=== PATIENT | male | born 1955 | race Caucasian/White ===

== ENCOUNTER 2016-07-21 14:30 | Inpatient (IN) | payer SELFPAY ==
[2016-07-21 15:44] LABS: Hematocrit 43.9 % (42.0-52.0); Hemoglobin 15.4 gm/dL (13.5-18.0); Mean Cell Volume 93.6 fl (78-100); Mean Corpuscular Hemoglobin 32.8 pg (27-31); Mean Corpuscular Hgb Conc 35.1 g/dl (32-36); Mean Platelet Volume 11.7 fl (6.0-9.5); Neutrophil # 11.6 K/mm3 (1.3-6.0); Neutrophil % 82.6 % (42-75.0); Platelet Count 228 K/mm3 (150-450); Red Blood Count 4.69 M/mm3 (4.7-6.0); Red Cell Distribution Width 13.2 % (11.5-14.0)
--- NOTE | 2016-07-21 15:46 | ERNOTE ---
Lower Extremity HPI - General Time Seen by Provider: 07/21/16 14:45 Source: patient Exam Limitations: no limitations - Immun/Allergies/Home Medications Immunizations: IMMUNIZATION HX Immunizations Up to Date No History of Influenza Vaccine No Hx Pneumococcal Vaccination No Allergies/Adverse Reactions: Allergies Allergy/AdvReac Type Severity Reaction Status Date / Time No Known Allergies Allergy Verified 07/21/16 15:04 Home Medications: HOME MEDICATIONS Gabapentin 300 mg PO BID 07/21/16 [Last Taken Unknown] metFORMIN HCL [Metformin HCl ER] 500 mg PO 07/21/16 [Last Taken Unknown] - History of Present Illness Narrative: Patient's symptoms began three months ago when he pulled off a scab from the bottom of his left foot. Pt states that while he has never formally been diagnosed with diabetes, he has been checking his blood sugar and he believes he has diabetes. He since has actively pulled off the scabs on the bottom of his left foot and now the left foot is warm to the touch it hurts it's swollen and there is a sore on the plantar aspect and there is a foul smelling discharge from it. He denies any fevers or chills. He has not taken any medication for this. CT does not have a primary care doctor. He since states that he has not seek any medical attention for this however has pulled off the scabs himself. Occurred: other - 3 months ago Review of Systems - Review of Systems Constitutional: Present: no symptoms reported EYE: Present: no symptoms reported ENT: Present: no symptoms reported Respiratory: Present: no symptoms reported Cardiology: Present: no symptoms reported Gastrointestinal/Abdominal: Present: no symptoms reported Genitourinary: Present: no symptoms reported Musculoskeletal: Present: See HPI - Patient's Past Medical History Patient History - Medical: No pertinent hx Patient History - Cardiac/Respiratory: No pertinent hx Patient History - Cancer: No Hx of Cancer Patient History - Surgical Procedures: No surgical history Patient History - Other: None - Social History Living Situations: spouse Abuse History: No History of abuse Psych History: No pertinent hx Alcohol Use: none Drug Use: none - Immunizations Immunizations Up to Date: No Hx Pneumococcal Vaccination: No History of Influenza Vaccine: No Physical Exam - Physical Exam General Appearance: Present: wd/wn, alert, no apparent distress Ears, Nose, Throat: Present: normal ENT inspection Respiratory: Present: no respiratory distress, normal breath sounds, no accessory muscle use, chest nontender, lungs clear Cardiovascular/Chest: Present: regular rate, rhythm, no murmur, normal peripheral pulses Extremity Exam: Present: other - patient has a 2 cm x 2 cm crater on the plantar aspect of his left forefoot. There appears to be some purulent material in the crater. There is some surrounding redness and inflammation extending all the way up to the dorsal aspect of the midfoot region the area is hot and tender. Any movement causes pain but the patient does have a good dorsalis pedis pulse. Neurological Exam: Present: alert, oriented, normal mood/affect, no motor/ sensory deficits ED Progress - Results and Orders Patient's Lab Results:: I have reviewed the patient's lab results. - Vital Signs Patient's Vital Signs:: I have reviewed the patient's vital signs. Vital Signs: Vital Signs 07/21/16 14:59 Temperature 37.2 C Pulse Rate 98 Respiratory 14 Rate Blood Pressure 128/66 O2 Sat by Pulse 94 Oximetry - Progress/Reassessment Chief Complaint: Foot Injury/Pain Plan - Plan Plan: This patient has diabetes for which he has not received any care whatsoever. He also has a left diabetic foot ulcer. Doctor Chinmay, Our welfare centre manager was kind enough to come to the patient's bedside and do an evaluation, it is both our opinions that the patient needs to be admitted to [facility] service. Subsequently Dr. Deshawn Bland was consulted to admit the patient. Patient's white count is 14 his sedimentation rate is 91 his CRP is 19.7 ER he received IV hydration he received Rocephin 2 g IV and he received pain medication as well. [facility]. Departure Clinical Impression: Diabetic foot ulcer Qualifiers: Diabetic foot ulcer location: unspecified part of foot Diabetes mellitus type: other specified (including BOB) Laterality: left Non-pressure ulcer stage: unspecified non-pressure ulcer stage Qualified Code(s): E13.621 - Other specified diabetes mellitus with foot ulcer; L97.529 - Non-pressure chronic ulcer of other part of left foot with unspecified severity - Departure Disposition: [facility] Condition: Serious
[2016-07-21 15:55] LABS: Albumin * 3.3 gm/dl (3.4-5.0); Anion Gap 12.4 mmol/L (6.8-13.8); BUN/Creatinine Ratio 22.8 (9.0-21.6); Bilirubin, Total 0.5 mg/dL (0.0-1.1); Ca. Corrected For Albumin 10.1 mg/dL (8.4-10.2); Calcium * 9.9 mg/dL (7.9-10.9); Carbon Dioxide 29.9 mmol/L (24-32.6); Potassium 4.3 mmol/L (3.4-4.6); Total Protein 8.2 gm/dL (6.2-8.2)
[2016-07-21 15:58] LABS: Hemoglobin A1C 7.2 % (4.00-6.0)
[2016-07-21 16:04] LABS: CRP 19.7 mg/dL (0.0-0.9)
[2016-07-21] MEDS ORDERED: HYDROmorphone HCL 1 MG/ML DISP.SYRIN IV ONE (16:59)
[2016-07-21] MEDS ORDERED: NORMAL SALINE 1,000 ML IV ONE (17:00)
[2016-07-21] MEDS ORDERED: HYDROmorphone HCL 1 MG/ML DISP.SYRIN ONE (17:08)
[2016-07-21] MEDS: CIPROFLOXACIN LACTATE/D5W 400 MG/200 ML BAG IV SCH (17:33)
[2016-07-21] MEDS: ENOXAPARIN SODIUM 40 MG/0.4 ML SYRG SC SCH (18:06)
--- NOTE | 2016-07-21 19:36 | HP ---
Chief Complaint - Chief Complaint Date of Service: 07/21/16 Time of Service: 19:31 Chief Complaint: Foot Ulcer History of Present Illness: This is a 61 year old man whose symptoms began three months ago when he pulled off a scab from the bottom of his left foot. He said that while he has never formally been diagnosed with diabetes, he has been checking his blood sugar and he believes he has diabetes. Now his left foot is warm to the touch, tender, swollen, there is a sore and there is a foul smelling discharge from it. He denies any fevers or chills. He has not taken any medication for this. He does not have a primary care doctor. He has not sought any medical attention for the problem until now. - Patient's Past Medical History Patient History - Medical: No pertinent hx Patient History - Cardiac/Respiratory: No pertinent hx Patient History - Cancer: No Hx of Cancer Patient History - Surgical Procedures: No surgical history Patient History - Other: None - Family History Mother Family History - Medical: No pertinent hx Family History - Cardiac/Respiratory: No pertinent hx Family History - Cancer: No pertinent family hx Father Family History - Medical: No pertinent hx Family History - Cardiac/Respiratory: No pertinent hx Family History - Cancer: No pertinent family hx - Social History Living Situations: spouse Abuse History: No History of abuse Psych History: No pertinent hx Smoking Status: Current every day smoker Have you smoked in the past 12 months: Yes Do you dip or chew tobacco: No Patient requests Smoking Cessation Consult: Yes Initiate information on Smoking Cessation: Yes Alcohol Use: none Drug Use: none - Immunizations Immunizations Up to Date: No Hx Pneumococcal Vaccination: No History of Influenza Vaccine: No Review Of Systems (GEN) - Review of Systems Generalized/Overall Review: Present: No Symptoms Reported EENTM: Present: No Symptoms Reported Respiratory: Present: No Symptoms Reported Cardiac: Present: No Symptoms Reported Abdominal: Present: No Symptoms Reported Genitourinary: Present: No Symptoms Reported Musculoskeletal: Present: No Symptoms Reported Neurological: Present: No Symptoms Reported Skin: Present: Other - see HPI Endocrine: Present: No Symptoms Reported Misc: All systems neg except as marked Immunizations: IMMUNIZATION HX Immunizations Up to Date No History of Influenza Vaccine No Hx Pneumococcal Vaccination No Allergies/Adverse Reactions: Allergies Allergy/AdvReac Type Severity Reaction Status Date / Time No Known Allergies Allergy Verified 07/21/16 15:04 Home Medications: HOME MEDICATIONS Gabapentin 300 mg PO BID 07/21/16 [Last Taken Unknown] metFORMIN HCL [Metformin HCl ER] 500 mg PO 07/21/16 [Last Taken Unknown] Exam - Exam Vital Signs: Vital Signs - Last Taken Selected Entries 07/21/16 18:07 Temperature 37.0 C Temperature Oral Source Pulse Rate 96 Respiratory 16 Rate Blood Pressure 164/89 O2 Sat by Pulse 94 Oximetry Oxygen Delivery Room Air Method Constitutional: Present: Alert, Oriented x3, Cooperative, Well developed, Well nourished, No distress Eye Exam: bilateral eye: normal inspection, PERRL, EOMI Neck: Present: non-tender, full range of motion, supple, normal inspection, trachea midline Back Exam: Present: normal inspection, no CVA tenderness, no vertebral tenderness Respiratory: Present: normal breath sounds, no respiratory distress Cardiovascular/Chest: Present: normal peripheral pulses, regular rate, rhythm, no chest tenderness, no edema, no gallop, no JVD, no murmur Abdomen: Present: Normal bowel sounds, soft, nontender, nondistended, no rebound tenderness, no hepatospenomegaly, no masses Extremity: Present: no pedal edema, other - 2X2 cm ulcer with surrounding redness bottom of left foot. Skin Exam: Present: normal color, warm/dry, no cyanosis Neurologic: Present: alert, oriented x 3 Appearance: Present: appropriate appearance, appropriate insight, neat Eye contact: Present: cooperative, good eye contact, normal speech Thoughts: Present: normal thought pattern Diagnostic Studies: Laboratory Results WBC 14.0 K/mm3 (4.0-10.5) H 07/21/16 15:27 RBC 4.69 M/mm3 (4.7-6.0) L 07/21/16 15:27 Hgb 15.4 gm/dL (13.5-18.0) 07/21/16 15:27 Hct 43.9 % (42.0-52.0) 07/21/16 15:27 MCV 93.6 fl (78-100) 07/21/16 15:27 MCH 32.8 pg (27-31) H 07/21/16 15:27 MCHC 35.1 g/dl (32-36) 07/21/16 15:27 RDW 13.2 % (11.5-14.0) 07/21/16 15:27 Plt Count 228 K/mm3 (150-450) 07/21/16 15:27 MPV 11.7 fl (6.0-9.5) H 07/21/16 15:27 Immature Gran % (Auto) 0.70 % (0.001-0.429) H 07/21/16 15:27 Immature Gran # (Auto) 0.10 K/mm3 (0.000-0.0310) H 07/21/16 15:27 Neutrophils % 82.6 % (42-75.0) H 07/21/16 15:27 Lymphocytes % 8.6 % (20-51) L 07/21/16 15:27 Monocytes % 7.2 % (0.0-9) 07/21/16 15: Eosinophils % 0.7 % (0.0-3.0) 07/21/16 15: Basophils % 0.2 % (0.0-1.0) 07/21/16 15: Nucleated RBC % 0.0 k/mm3 (0-1) 07/21/16 15:27 Neutrophils # 11.6 K/mm3 (1.3-6.0) H 07/21/16 15:27 Lymphocytes # 1.2 k/mm3 (1.5-3.5) L 07/21/16 15:27 Monocytes # 1.0 k/mm3 (0.0-1.0) 07/21/16 15:27 Eosinophils # 0.1 k/mm3 (0.0-0.7) 07/21/16 15: Absolute Basophils 0.0 k/mm3 (0.0-0.1) 07/21/16 15:27 ESR 91 mm/hr (0-10) H 07/21/16 15:27 Sodium 139 mmol/L (132-142) 07/21/16 15:27 Plasma Sodium 141 mmol/L (130-142) 07/21/16 15:27 Potassium 4.3 mmol/L (3.4-4.6) 07/21/16 15:27 Chloride 101 mmol/L (97-106) 07/21/16 15:27 Carbon Dioxide 29.9 mmol/L (24-32.6) 07/21/16 15:27 Anion Gap 12.4 mmol/L (6.8-13.8) 07/21/16 15:27 BUN 21 mg/dL (6-23) 07/21/16 15:27 Creatinine 0.92 mg/dL (0.4-1.4) 07/21/16 15:27 Est GFR (Non-Af Amer) 89 mL/min (60-130) 07/21/16 15:27 BUN/Creatinine Ratio 22.8 (9.0-21.6) H 07/21/16 15:27 Random Glucose 217 mg/dL (70-110) H 07/21/16 15:27 Mean Blood Glucose 154 mg/dL 07/21/16 15:27 Hemoglobin A1c 7.2 % (4.00-6.0) H 07/21/16 15:27 Calcium 9.9 mg/dL (7.9-10.9) 07/21/16 15:27 Calcium Adj for Albumin 10.1 mg/dL (8.4-10.2) 07/21/16 15:27 Total Bilirubin 0.5 mg/dL (0.0-1.1) 07/21/16 15:27 AST 10 U/L (0-48) 07/21/16 15:27 ALT 19 U/L (19-67) 07/21/16 15:27 Alkaline Phosphatase 96 U/L (50-170) 07/21/16 15:27 C-Reactive Prot, Quant 19.7 mg/dL (0.0-0.9) H 07/21/16 15:27 Total Protein 8.2 gm/dL (6.2-8.2) 07/21/16 15:27 Albumin 3.3 gm/dl (3.4-5.0) L 07/21/16 15:27 Assessment/Plan - Narrative Narrative: antibiotics. podiatry consult. - Assessment/Plan (1) Diabetes type 2, uncontrolled Problem: Chronic (2) Diabetic foot ulcer Problem: Acute Qualifiers: Diabetic foot ulcer location: unspecified part of foot Diabetes mellitus type: other specified (including BOB) Laterality: left Non-pressure ulcer stage: unspecified non-pressure ulcer stage Qualified Code(s): E13.621 - Other specified diabetes mellitus with foot ulcer; L97.529 - Non-pressure chronic ulcer of other part of left foot with unspecified severity
[2016-07-21] MEDS: NICOTINE 21 MG PATC TD SCH ×2 (21:13→21:16)
[2016-07-21] MEDS ORDERED: METOCLOPRAMIDE HCL 5 MG/ML VIAL IV PRN (22:08)
[2016-07-21] MEDS ORDERED: diphenhydrAMINE HCL 50 MG/ML VIAL IV PRN (22:08)
[2016-07-21] MEDS: NORMAL SALINE 1,000 ML IV PRN (23:36)
[2016-07-22] MEDS: CIPROFLOXACIN LACTATE/D5W 400 MG/200 ML BAG IV SCH ×2 (05:35→16:46)
[2016-07-22] MEDS: NICOTINE 21 MG PATC TD SCH (06:45)
[2016-07-22] MEDS ORDERED: COLLAGENASE CLOSTRIDIUM HIST. 30 APPL TUBE TP SCH (09:00)
--- NOTE | 2016-07-22 09:32 | PN ---
Subjective - Date and Time Seen Date: 07/22/16 Time: 06:30 Subjective Narrative: Foot pain controlled. Headache gone. Dr. Moy saw him in the ER. Culture pending. Objective - Review of Systems Generalized/Overall Review: Reports: No Symptoms Reported EENTM: Reports: No Symptoms Reported Respiratory: Reports: No Symptoms Reported Cardiac: Reports: No Symptoms Reported Abdominal: Reports: No Symptoms Reported Genitourinary Symptoms: Reports: No Symptoms Reported Musculoskeletal Complaints: Reports: No Symptoms Reported Neurological: Reports: No Symptoms Reported Skin: Reports: Other - foot pain Endocrine: Reports: No Symptoms Reported Misc: All systems neg except as marked - Vitals Vitals: Last Vital Signs Selected Entries 07/22/16 06:46 Temperature 36.4 C L Temperature Temporal Artery Source Scan Pulse Rate 75 Respiratory 18 Rate Blood Pressure 143/85 Blood Pressure Supine Position O2 Sat by Pulse 96 Oximetry Oxygen Delivery Room Air Method - Exam Constitutional: Present: Alert, Oriented x3, Cooperative, Well developed, Well nourished, No distress ENT Exam: Present: normal ENT inspection, hearing grossly normal, pharynx normal Neck: Present: supple Respiratory: Present: lungs clear, no respiratory distress Abdomen: Present: Normal bowel sounds, soft, nontender, nondistended, no rebound tenderness, no hepatospenomegaly, no masses Extremity: Present: non-tender, no pedal edema, other - ulcer same Neurologic: Present: alert, oriented x 3 Appearance: Present: appropriate appearance, neat, no memory impairment Eye contact: Present: cooperative, good eye contact, normal speech Thoughts: Present: normal thought pattern, no apparent hallucination, auditory hallucinations Assessment/Plan - Problems/Diagnosis (1) Diabetes type 2, uncontrolled Problem: Chronic Narrative: Antibiotics. Podiatry consult. (2) Diabetic foot ulcer Problem: Acute Qualifiers: Diabetic foot ulcer location: unspecified part of foot Diabetes mellitus type: other specified (including BOB) Laterality: left Non-pressure ulcer stage: unspecified non-pressure ulcer stage Qualified Code(s): E13.621 - Other specified diabetes mellitus with foot ulcer; L97.529 - Non-pressure chronic ulcer of other part of left foot with unspecified severity
[2016-07-22] MEDS: metFORMIN HCL 500 MG TABLET PO SCH ×2 (09:34→16:46)
--- NOTE | 2016-07-22 10:08 | CONS ---
- Reason for consultation (1) Cellulitis of foot Date of Service: 07/21/16 (2) Diabetic foot ulcer Date of Service: 07/21/16 HPI - General Date of Service: 07/21/16 Narrative: Pt evaluated in the ED at request of ERP. Presents today with ulceration of 3 months duration to the plantar surface of the left foot foot. States that it began as a callus that he "picked off." It eventually scabbed over and he again "picked it off." This has been an ongoing cycle for the past 3 months, however this last time, it has not scabbed over. Instead he has developed significant redness, swelling, and tenderness. States that he has been soaking his foot for a few minutes daily in peroxide to clean. Is only applying a sock to cover, and only when he is in his shoes walking, otherwise it is open to air. Does state that he went mushroom hunting recently and stepped on a [place] plant and believes this may be contributing to his symptoms. I was consulted for a surgical evaluation. Source: patient Exam Limitations: no limitations - History of Present Illness Timing/Duration: getting worse Allergies/Adverse Reactions: Allergies No Known Allergies Allergy (Verified 07/21/16 15:04) Home Medications: Home Medications Medication Instructions Recorded Last Taken Gabapentin 300 mg PO BID 07/21/16 Unknown metFORMIN HCL [Metformin HCl ER] 500 mg PO DAILY 07/21/16 Unknown - Patient's Past Medical History Patient History - Medical: Diabetes Type 2 Patient History - Cardiac/Respiratory: No pertinent hx Patient History - Cancer: No Hx of Cancer Patient History - Surgical Procedures: No surgical history Patient History - Other: None - Family History Mother Family History - Medical: No pertinent hx Family History - Cardiac/Respiratory: No pertinent hx Family History - Cancer: No pertinent family hx Father Family History - Medical: No pertinent hx Family History - Cardiac/Respiratory: No pertinent hx Family History - Cancer: No pertinent family hx - Social History Living Situations: spouse Abuse History: No History of abuse Psych History: No pertinent hx Smoking Status: Current every day smoker Have you smoked in the past 12 months: Yes Do you dip or chew tobacco: No Patient requests Smoking Cessation Consult: Yes Initiate information on Smoking Cessation: Yes Alcohol Use: none Drug Use: none - Immunizations Immunizations Up to Date: No Hx Pneumococcal Vaccination: No History of Influenza Vaccine: No Date of Service: 07/21/16 Verbal consent obtained from the pt for bedside debridement of ulceration to his left foot. Ulceration debrided to subcutaneous tissue with #15 blade, excising all hyperkeratotic/devitalized tissue from the periphery of the ulceration revealing healthy, bleeding subcutaneous wound margins. Surface of ulceration also debrided with #15 blade, removing significant amount of devitalized/fibrotic tissue from the base of the ulcer revealing a healthy bleeding subcutaneous wound bed. Hemostasis with compression. Pt tolerated well without complication. Medications - Medications Current Medications: Current Medications Collagenase (Santyl) 1 appl TP BID [facility] Stop: 08/21/16 09:01 Last Admin: 07/22/16 09:34 Dose: 1 appl Enoxaparin Sodium (Lovenox) 40 mg SC Q24H [facility] Stop: 08/20/16 17:31 Last Admin: 07/21/16 18:06 Dose: 40 mg Ciprofloxacin/Dextrose (Cipro) 400 mg in 200 mls @ 200 mls/hr IV Q12H [facility] PRN Reason: Protocol Stop: 08/20/16 17:16 Last Infusion: 07/22/16 06:35 Dose: Infused Sodium Chloride (Sodium Chloride 0.9%) 1,000 mls @ 70 mls/hr IV .[id number] PRN PRN Reason: HYDRATION Stop: 08/20/16 22:09 Last Admin: 07/21/16 23:36 Dose: 70 mls/hr Metformin HCl (Glucophage) 500 mg PO BIDWM [facility] Stop: 08/21/16 09:01 Last Admin: 07/22/16 09:34 Dose: 500 mg Nicotine (Nicoderm) 21 mg TD Q24H [facility] Stop: 08/21/16 07:01 Last Admin: 07/22/16 06:45 Dose: 21 mg Review of Systems - Review of Systems Generalized/Overall Review: Present: Fatigue Musculoskeletal: Present: Other - Left foot pain Neurological: Present: Numbness Skin: Present: Other - Ulceration left foot, redness left foot Physical Examination - Exam Vital Signs: Vital Signs - Last Taken Temp 36.4 C L 07/22/16 09:00 Pulse 75 07/22/16 09:00 Resp 18 07/22/16 09:00 BP 143/85 07/22/16 09:00 Pulse Ox 96 07/22/16 09:00 O2 Oxygen Delivery Method Room Air Constitutional: Present: Alert, Oriented x3, Cooperative Peripheral Pulses: dorsalis-pedis (L): 2+ Extremity: Present: pedal edema Skin Exam: Present: other - Ulceration to plantar aspect 3rd metatarsal head area left foot measuring 1.7 x 2 x 1.2 cm. No tunneling or undermining. Loss of tissue to full thickness with exposure of subcutaneous fat layer. Base with mix of granulation and fibrotic tissue. Surrounding tissue hyperkeratotic with erythema extening into the 3rd toe as well as into the dorsum of the foot. Slight tenderness to touch to dorsum of foot, no pain at ulceration site. Minimal sero-purulent drainage, slight malodor. No exposed tendon or bone at this time. Neurologic: Present: sensory deficit Appearance: Present: appropriate appearance - Results and Findings: Lab/Microbiology results last 24 hrs: Culture 07/21/16 20:00 Wound Culture - Preliminary Foot - Left Ruling Out Pathogen - Assessments/Findings (1) Cellulitis of foot Diagnosis(s): IV ABX. Recommend admit to hospital for further ABX therapy. Problem: Acute (2) Diabetic foot ulcer Diagnosis(s): Ulceration debrided at bedside. Dressed with dry gauze, sharmila, and tape. Will begin daily dressing changes with Aquacel Ag, dry gauze, sharmila, and tape. Foot to be washed with soap and water at dressing changes. Culture obtained in ED. Will await final results. Discussed with pt potential of going to OR for possible I&D vs possible amputation (partial or total) pending MRI results. Will discuss further when results available. Pt states understanding. Problem: Acute Qualifiers: Diabetic foot ulcer location: other Diabetes mellitus type: type 2 Laterality: left Non-pressure ulcer stage: with fat layer exposed Qualified Code(s): E11.621 - Type 2 diabetes mellitus with foot ulcer; L97.522 - Non- pressure chronic ulcer of other part of left foot with fat layer exposed
[2016-07-22] MEDS: ACETAMINOPHEN 325 MG TABLET PO PRN (13:10)
[2016-07-22] MEDS: KETOROLAC TROMETHAMINE 30 MG/ML VIAL IV PRN (15:19)
[2016-07-22] MEDS: NORMAL SALINE 1,000 ML IV PRN (15:37)
[2016-07-22] MEDS: ENOXAPARIN SODIUM 40 MG/0.4 ML SYRG SC SCH (16:46)
[2016-07-22] MEDS: MEROPENEM 1 GM in NORMAL SALINE 100 ML IV SCH (18:27)
[2016-07-22] MEDS: VANCOMYCIN HCL 1.5 GM in DEXTROSE 5 % IN WATER 500 ML IV SCH ×2 (19:12)
[2016-07-22] MEDS: INSULIN LISPRO 100 UNITS/ML VIAL SC SCH (21:08)
[2016-07-23] MEDS: MEROPENEM 1 GM in NORMAL SALINE 100 ML IV SCH ×3 (01:45→17:34)
[2016-07-23] MEDS: KETOROLAC TROMETHAMINE 30 MG/ML VIAL IV PRN ×2 (06:01→16:33)
[2016-07-23] MEDS: ACETAMINOPHEN 325 MG TABLET PO PRN ×2 (06:01→11:55)
[2016-07-23] MEDS: INSULIN LISPRO 100 UNITS/ML VIAL SC SCH ×4 (06:57→20:14)
[2016-07-23] MEDS: VANCOMYCIN HCL 1.5 GM in DEXTROSE 5 % IN WATER 500 ML IV SCH ×2 (06:58)
[2016-07-23] MEDS: NICOTINE 21 MG PATC TD SCH (06:59)
[2016-07-23] MEDS: metFORMIN HCL 500 MG TABLET PO SCH ×2 (09:18→16:33)
[2016-07-23] MEDS: NORMAL SALINE 1,000 ML IV PRN (15:06)
[2016-07-23] MEDS: ENOXAPARIN SODIUM 40 MG/0.4 ML SYRG SC SCH (16:33)
[2016-07-23] MEDS: VANCOMYCIN HCL 1.75 GM in DEXTROSE 5 % IN WATER 500 ML IV SCH ×2 (18:36)
--- NOTE | 2016-07-23 19:25 | PN ---
Subjective - Date and Time Seen Date: 07/23/16 Time: 07:20 Subjective Narrative: Foot pain controlled. Headache gone. Dr. Moy saw him in the ER. Dr. Moy to see him again today. Culture pending. Objective - Review of Systems Generalized/Overall Review: Reports: No Symptoms Reported EENTM: Reports: No Symptoms Reported Respiratory: Reports: No Symptoms Reported Cardiac: Reports: No Symptoms Reported Abdominal: Reports: No Symptoms Reported Genitourinary Symptoms: Reports: No Symptoms Reported Musculoskeletal Complaints: Reports: Other - minimal foot pain Neurological: Reports: No Symptoms Reported Skin: Reports: No Symptoms Reported Endocrine: Reports: No Symptoms Reported Misc: All systems neg except as marked - Vitals Vitals: Last Vital Signs Selected Entries 07/22/16 23:00 Temperature 37.3 C Temperature Oral Source Pulse Rate 91 Respiratory 20 Rate Blood Pressure 179/98 Blood Pressure Supine Position O2 Sat by Pulse 94 Oximetry Oxygen Delivery Room Air Method - Exam Constitutional: Present: Alert, Oriented x3, Cooperative, Well developed, Well nourished, No distress ENT Exam: Present: normal ENT inspection, hearing grossly normal Neck: Present: normal inspection Respiratory: Present: lungs clear, no respiratory distress Cardiovascular/Chest: Present: normal peripheral pulses, regular rate, rhythm, no chest tenderness, no edema Abdomen: Present: Normal bowel sounds, soft, nontender, nondistended, no rebound tenderness Extremity: Present: normal range of motion, no pedal edema, no calf tenderness, other - foot about the same Skin Exam: Present: normal color, warm/dry, no cyanosis Neurologic: Present: alert, oriented x 3 Appearance: Present: appropriate appearance, appropriate insight, neat, no memory impairment Eye contact: Present: cooperative, good eye contact, normal speech Thoughts: Present: normal thought pattern Assessment/Plan Plan Narrative: Wait for final culture. Continue antibiotics. Wait for podiatry local care decision - Problems/Diagnosis (1) Diabetes type 2, uncontrolled Problem: Chronic (2) Diabetic foot ulcer Problem: Acute Qualifiers: Diabetic foot ulcer location: unspecified part of foot Diabetes mellitus type: other specified (including BOB) Laterality: left Non-pressure ulcer stage: unspecified non-pressure ulcer stage Qualified Code(s): E13.621 - Other specified diabetes mellitus with foot ulcer; L97.529 - Non-pressure chronic ulcer of other part of left foot with unspecified severity
[2016-07-24] MEDS: ACETAMINOPHEN 325 MG TABLET PO PRN ×2 (01:41→17:13)
[2016-07-24] MEDS: MEROPENEM 1 GM in NORMAL SALINE 100 ML IV SCH ×3 (01:42→17:17)
[2016-07-24 05:57] LABS: Hematocrit 39.7 % (42.0-52.0); Hemoglobin 13.9 gm/dL (13.5-18.0); Mean Cell Volume 92.8 fl (78-100); Mean Corpuscular Hemoglobin 32.5 pg (27-31); Mean Platelet Volume 11.8 fl (6.0-9.5); Neutrophil # 9.2 K/mm3 (1.3-6.0); Neutrophil % 72.6 % (42-75.0); Platelet Count 234 K/mm3 (150-450); Red Blood Count 4.28 M/mm3 (4.7-6.0); Red Cell Distribution Width 12.7 % (11.5-14.0); White Blood Count 12.7 K/mm3 (4.0-10.5)
[2016-07-24 06:22] LABS: Anion Gap 8.8 mmol/L (6.8-13.8); BUN/Creatinine Ratio 16.3 (9.0-21.6); Calcium * 8.9 mg/dL (7.9-10.9); Carbon Dioxide 29.6 mmol/L (24-32.6); Estimated Creat Clear 103.3; Potassium 3.4 mmol/L (3.4-4.6)
[2016-07-24 06:41] LABS: CRP 19.1 mg/dL (0.0-0.9)
[2016-07-24] MEDS: INSULIN LISPRO 100 UNITS/ML VIAL SC SCH ×4 (07:01→20:57)
[2016-07-24] MEDS: VANCOMYCIN HCL 1.75 GM in DEXTROSE 5 % IN WATER 500 ML IV SCH ×4 (07:01→18:34)
[2016-07-24] MEDS: NICOTINE 21 MG PATC TD SCH (07:02)
[2016-07-24] MEDS: KETOROLAC TROMETHAMINE 30 MG/ML VIAL IV PRN ×2 (07:10→15:32)
--- NOTE | 2016-07-24 08:01 | PN ---
Subjective - Date and Time Seen Date: 07/23/16 Time: 07:45 Subjective Narrative: Pt seen at bedside resting. States that he does not have much of an appetite today and is having intermittent pain in his left foot. Denies any nausea or vomitting. Is interested in MRI results. Objective - Review of Systems Generalized/Overall Review: Reports: Fatigue Musculoskeletal Complaints: Reports: Other - left foot pain Neurological: Reports: Numbness Skin: Reports: Other - Ulceration to plantar aspect 3rd metatarsal head area left foot, redness left foot - Vitals Vitals: Last Vital Signs Temp 37 C 07/24/16 07:45 Pulse 88 07/24/16 07:45 Resp 18 07/24/16 07:45 BP 151/98 07/24/16 07:45 Pulse Ox 96 07/24/16 07:45 - Abnormal Lab Findings Abnormal Lab Findings: Abnormal Lab Results 07/24/16 07/24/16 07/24/16 Range/Units 05:54 05:54 05:54 WBC 12.7 H (4.0-10.5) K/mm3 RBC 4.28 L (4.7-6.0) M/mm3 Hct 39.7 L (42.0-52.0) % MCH 32.5 H (27-31) pg MPV 11.8 H (6.0-9.5) fl Immature Gran % (Auto) 0.60 H (0.001-0.429) % Immature Gran # (Auto) 0.08 H (0.000-0.0310) K/mm3 Lymphocytes % 15.0 L (20-51) % Monocytes % 10.8 H (0.0-9) % Neutrophils # 9.2 H (1.3-6.0) K/mm3 Monocytes # 1.4 H (0.0-1.0) k/mm3 ESR 102 H (0-10) mm/hr Random Glucose 135 H D (70-110) mg/dL C-Reactive Prot, Quant 19.1 H (0.0-0.9) mg/dL - Exam Exam Narrative: MRI left foot with no significant concerns for osteomyelitis. Showing increase signal within the 3rd MtPJ, likely septic arthritis. Constitutional: Present: Alert, Oriented x3, Cooperative, No distress Cardiovascular/Chest: Present: normal peripheral pulses Extremity: Present: pedal edema Skin Exam: Present: other - Ulceration to plantar aspect 3rd metatarsal head area left foot measuring 1.6 x 1.9 x 1 cm. No tunneling or undermining. Loss of tissue to full thickness with exposure of subcutaneous fat layer. Base with mix of granulation and fibrotic tissue. Surrounding tissue with erythema extening into the 3rd toe as well as into the dorsum of the foot, demarcated with marking pen. Slight tenderness to touch to dorsum of foot, no pain at ulceration site. Minimal serosanguinous drainage, slight malodor. No exposed tendon or bone at this time. Neurologic: Present: sensory deficit Assessment/Plan - Problems/Diagnosis (1) Cellulitis of foot Problem: Acute Narrative: Continue IV ABX. Await final culture results. 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 Discussed MRI with pt. Showing likely septic arthritis. Third MtP joint punctured with iris scissors during dressing change, minimal sero-purulent drainage expressed. Pt would like to avoid going to OR if at all possible as he is a self-pay and is trying to keep his expenses to a minimum. Advised that if his foot does not start to show improvement, will need to go to OR for more extensive I&D. States understanding. Will continue IV ABX at this time. Discussed with case maker potential for home IV ABX. Will investigate this option.
[2016-07-24] MEDS: metFORMIN HCL 500 MG TABLET PO SCH ×2 (09:24→17:15)
[2016-07-24] MEDS: NORMAL SALINE 1,000 ML IV PRN (14:00)
--- NOTE | 2016-07-24 16:58 | PN ---
Subjective - Date and Time Seen Date: 07/24/16 Time: 06:20 Subjective Narrative: Foot pain controlled. Headache gone. Two of three organisms identified in the lab. Unfortunately, still waiting on ID for the third. MRI most suggestive of septic arthrtis. Objective - Review of Systems Generalized/Overall Review: Reports: No Symptoms Reported EENTM: Reports: No Symptoms Reported Respiratory: Reports: No Symptoms Reported Cardiac: Reports: No Symptoms Reported Abdominal: Reports: No Symptoms Reported Genitourinary Symptoms: Reports: No Symptoms Reported Musculoskeletal Complaints: Reports: Other - foot pain Neurological: Reports: No Symptoms Reported Skin: Reports: No Symptoms Reported Endocrine: Reports: No Symptoms Reported Misc: All systems neg except as marked - Vitals Vitals: Last Vital Signs Selected Entries 07/23/16 23:00 Temperature 36.6 C Temperature Oral Source Pulse Rate 98 Respiratory 20 Rate Blood Pressure 154/81 Blood Pressure Supine Position O2 Sat by Pulse 91 Oximetry Oxygen Delivery Room Air Method - Abnormal Lab Findings Abnormal Lab Findings: Abnormal Lab Results 07/24/16 07/24/16 07/24/16 Range/Units 05:54 05:54 05:54 WBC 12.7 H (4.0-10.5) K/mm3 RBC 4.28 L (4.7-6.0) M/mm3 Hct 39.7 L (42.0-52.0) % MCH 32.5 H (27-31) pg MPV 11.8 H (6.0-9.5) fl Immature Gran % (Auto) 0.60 H (0.001-0.429) % Immature Gran # (Auto) 0.08 H (0.000-0.0310) K/mm3 Lymphocytes % 15.0 L (20-51) % Monocytes % 10.8 H (0.0-9) % Neutrophils # 9.2 H (1.3-6.0) K/mm3 Monocytes # 1.4 H (0.0-1.0) k/mm3 ESR 102 H (0-10) mm/hr Random Glucose 135 H D (70-110) mg/dL C-Reactive Prot, Quant 19.1 H (0.0-0.9) mg/dL - Exam Constitutional: Present: Alert, Oriented x3, Cooperative, Well developed, Well nourished, No distress ENT Exam: Present: normal ENT inspection, hearing grossly normal, pharynx normal Neck: Present: normal inspection Respiratory: Present: normal breath sounds, no respiratory distress Cardiovascular/Chest: Present: regular rate, rhythm, no chest tenderness Abdomen: Present: Normal bowel sounds, soft, nontender, nondistended, no rebound tenderness, no hepatospenomegaly, no masses Extremity: Present: other - foot about the same Neurologic: Present: alert, oriented x 3 Appearance: Present: appropriate appearance, appropriate insight, neat, no memory impairment Eye contact: Present: cooperative, good eye contact, normal speech Thoughts: Present: normal thought pattern Assessment/Plan Plan Narrative: Continue antibiotics. Await final culture. Local care per Dr. Moy. - Problems/Diagnosis (1) Diabetes type 2, uncontrolled Problem: Chronic (2) Diabetic foot ulcer Problem: Acute Qualifiers: Diabetic foot ulcer location: unspecified part of foot Diabetes mellitus type: other specified (including BOB) Laterality: left Non-pressure ulcer stage: unspecified non-pressure ulcer stage Qualified Code(s): E13.621 - Other specified diabetes mellitus with foot ulcer; L97.529 - Non-pressure chronic ulcer of other part of left foot with unspecified severity
[2016-07-24] MEDS: ENOXAPARIN SODIUM 40 MG/0.4 ML SYRG SC SCH (17:15)
--- NOTE | 2016-07-24 17:16 | PN ---
Subjective - Date and Time Seen Date: 07/24/16 Time: 17:02 Subjective Narrative: Pt seen at bedside resting. States his appetite has improved today and he was able to get some rest over night. Relates improvement to the left foot with very minimal pain intermittently. States that he washed his foot well in the shower this morning and has since noticed some drainage from the lateral aspect of the base of the toe. Objective - Review of Systems Neurological: Reports: Numbness Skin: Reports: Other - Ulceration left foot, redness left foot. - Vitals Vitals: Last Vital Signs Temp 37.2 C 07/24/16 15:00 Pulse 85 07/24/16 15:00 Resp 16 07/24/16 15:00 BP 159/88 07/24/16 15:00 Pulse Ox 95 07/24/16 15:00 - Abnormal Lab Findings Abnormal Lab Findings: Abnormal Lab Results 07/24/16 07/24/16 07/24/16 Range/Units 05:54 05:54 05:54 WBC 12.7 H (4.0-10.5) K/mm3 RBC 4.28 L (4.7-6.0) M/mm3 Hct 39.7 L (42.0-52.0) % MCH 32.5 H (27-31) pg MPV 11.8 H (6.0-9.5) fl Immature Gran % (Auto) 0.60 H (0.001-0.429) % Immature Gran # (Auto) 0.08 H (0.000-0.0310) K/mm3 Lymphocytes % 15.0 L (20-51) % Monocytes % 10.8 H (0.0-9) % Neutrophils # 9.2 H (1.3-6.0) K/mm3 Monocytes # 1.4 H (0.0-1.0) k/mm3 ESR 102 H (0-10) mm/hr Random Glucose 135 H D (70-110) mg/dL C-Reactive Prot, Quant 19.1 H (0.0-0.9) mg/dL - Exam Constitutional: Present: Alert, Oriented x3, Cooperative, No distress Skin Exam: Present: other - Ulceration to plantar aspect 3rd metatarsal head area left foot measuring 1.6 x 1.9 x 1 cm. No tunneling or undermining. Loss of tissue to full thickness with exposure of subcutaneous fat layer. Base with mix of granulation and fibrotic tissue, granulation tissue increasing. Surrounding tissue with erythema extening into the 3rd toe as well as into the dorsum of the foot, demarcated with marking pen and appears to be improving to the dorsal foot, however 3rd toe now darker red in color with lateral blow-out type ulceration at the base of the toe. Slight tenderness to touch to dorsum of foot, no pain at ulceration site. Moderate purulent drainage from the lateral 3rd toe, slight malodor. Color of toe improved slightly with drainage of pus. No exposed tendon or bone at this time. Assessment/Plan Plan Narrative: Verbal consent obtained from pt for bedside excisional debridement of new ulceration to the lateral 3rd toe left foot. A #15 blade utilized to incise area of ulceration through fibrotic tissue. Fibrotic tissue excised revealing bleeding, subcutaneous tissue. Compression applied to the toe, expressing moderate amount of purulent drainage. Compression applied until only bloody drainage remained. Ulcer packed with Aquacel Ag, dressed with dry gauze. Pt tolerated well without complication. Toe remaining dark red in color following debridement, however does hannah with quick color return. - Problems/Diagnosis (1) Cellulitis of foot Problem: Acute Narrative: Continue IV ABX. Skin lines now visible to dorsal foot and redness appears to be receding from demarcation. Await final culture results. 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 Ulcerations x 2 to left foot dressed with Aquacel Ag, dry gauze, sharmila, and ISHA bandage. Will monitor color return to 3rd toe. May still require amputation. Consider under local anesthetic if needed.
[2016-07-25] MEDS: MEROPENEM 1 GM in NORMAL SALINE 100 ML IV SCH (01:48)
[2016-07-25] MEDS: INSULIN LISPRO 100 UNITS/ML VIAL SC SCH ×4 (07:30→21:40)
[2016-07-25] MEDS: KETOROLAC TROMETHAMINE 30 MG/ML VIAL IV PRN ×2 (07:33→21:50)
[2016-07-25] MEDS: VANCOMYCIN HCL 1.75 GM in DEXTROSE 5 % IN WATER 500 ML IV SCH ×2 (07:35)
[2016-07-25] MEDS: NICOTINE 21 MG PATC TD SCH (07:39)
[2016-07-25] MEDS: ACETAMINOPHEN 325 MG TABLET PO PRN ×2 (08:46→14:26)
[2016-07-25] MEDS: metFORMIN HCL 500 MG TABLET PO SCH ×2 (08:47→16:33)
[2016-07-25] MEDS: CIPROFLOXACIN HCL 500 MG TABLET PO SCH ×2 (10:13→21:37)
[2016-07-25] MEDS: NORMAL SALINE 1,000 ML IV PRN (11:47)
--- NOTE | 2016-07-25 13:16 | PN ---
Subjective - Date and Time Seen Date: 07/25/16 Time: 07:45 Subjective Narrative: Pt seen at bedside resting. States he continues to improve today. Relates improvement to the left foot with very minimal pain intermittently. C/o more of a h/a today. Objective - Review of Systems Neurological: Reports: Headache Skin: Reports: Other - Ulcer left foot, redness left foot - Vitals Vitals: Last Vital Signs Temp 36.8 C 07/25/16 10:43 Pulse 92 07/25/16 10:43 Resp 20 07/25/16 10:43 BP 142/84 07/25/16 10:43 Pulse Ox 98 07/25/16 10:43 - Exam Constitutional: Present: Alert, Oriented x3, Cooperative, No distress Skin Exam: Present: other - Erythema to dorsal left foot continues to improve, now mostly localized to the 3rd toe. Ulceration to plantar left foot sub 3rd metatarsal head area measuring 1.5 x 2 x 0.7 cm. No tunneling or undermining. Loss of tissue to full thickness with exposure of subcutaneous fat layer. Base with increasing granulation tissue, still with some fibrotic tissue intermixed. Surrounding tissue pink, intact. Minimal serosanguinous drainage, slight malodor. No exposed tendon or bone. Ulceration to lateral base of 3rd toe left foot measuring 1.2 x 1 x 0.4 cm. No tunneling or undermining. Loss of tissue to full thickness with exposure of subcutaneous fat layer. Base with yellow, fibrotic tissue, minimal granulation tissue. Surrounding tissue erythematous, blanches with quick color return. Moderate purulent drainage, slight malodor. No exposed tendon or bone. Neurologic: Present: sensory deficit Assessment/Plan Plan Narrative: Continue IV ABX. Await final culture results. Toe showing slight improvement today but still with purulence. Again discussed with pt that he remains at risk at this time of amputation of the 3rd toe. Can do this under local anesthetic if he wishes to help save cost of his stay. Pt is in agreement with this plan if needed. If toe continues to improve, consider d/c home over the or Thursday. Will plan f/u in wound center Thursday pending d/c date. - Problems/Diagnosis (1) Cellulitis of foot Problem: Acute Narrative: Continue IV ABX pending final culture results. 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 Wash daily with soap and water.
--- NOTE | 2016-07-25 13:38 | PN ---
Subjective - Date and Time Seen Date: 07/25/16 Time: 08:00 Subjective Narrative: Foot pain controlled. Headache gone. All three organisms identified in the lab. All three organisms identified identified in the lab. Sensitive to Cipro. Maybe home in 1-2 days. Objective - Review of Systems Generalized/Overall Review: Reports: No Symptoms Reported EENTM: Reports: No Symptoms Reported Respiratory: Reports: No Symptoms Reported Cardiac: Reports: No Symptoms Reported Abdominal: Reports: No Symptoms Reported Genitourinary Symptoms: Reports: No Symptoms Reported Musculoskeletal Complaints: Reports: No Symptoms Reported Neurological: Reports: No Symptoms Reported Skin: Reports: Other - foot better Endocrine: Reports: No Symptoms Reported Misc: All systems neg except as marked - Vitals Vitals: Last Vital Signs Selected Entries 07/25/16 06:55 Temperature 36.8 C Temperature Oral Source Pulse Rate 92 Respiratory 20 Rate Blood Pressure 142/84 O2 Sat by Pulse 98 Oximetry Oxygen Delivery Room Air Method - Exam Constitutional: Present: Alert, Oriented x3, Cooperative, Well developed, Well nourished, No distress ENT Exam: Present: normal ENT inspection Neck: Present: normal inspection Respiratory: Present: lungs clear, no respiratory distress Cardiovascular/Chest: Present: regular rate, rhythm, no murmur Abdomen: Present: Normal bowel sounds, soft, nontender, nondistended, no rebound tenderness, no hepatospenomegaly, no masses Extremity: Present: other - foot improving Neurologic: Present: alert, oriented x 3 Appearance: Present: appropriate appearance, appropriate insight, neat Eye contact: Present: cooperative, good eye contact, normal speech Thoughts: Present: normal thought pattern Assessment/Plan Plan Narrative: foot improving, switch to cipro po. Home soon. - Problems/Diagnosis (1) Diabetes type 2, uncontrolled Problem: Chronic (2) Diabetic foot ulcer Problem: Acute Qualifiers: Diabetic foot ulcer location: unspecified part of foot Diabetes mellitus type: other specified (including BOB) Laterality: left Non-pressure ulcer stage: unspecified non-pressure ulcer stage Qualified Code(s): E13.621 - Other specified diabetes mellitus with foot ulcer; L97.529 - Non-pressure chronic ulcer of other part of left foot with unspecified severity
[2016-07-25] MEDS: ENOXAPARIN SODIUM 40 MG/0.4 ML SYRG SC SCH (16:34)
[2016-07-25] MEDS: ZOLPIDEM TARTRATE 5 MG TABLET PO PRN (21:50)
[2016-07-26] MEDS: NORMAL SALINE 1,000 ML IV PRN ×2 (00:44→15:06)
[2016-07-26] MEDS: INSULIN LISPRO 100 UNITS/ML VIAL SC SCH ×4 (07:18→20:12)
[2016-07-26] MEDS: NICOTINE 21 MG PATC TD SCH (07:20)
[2016-07-26] MEDS: CIPROFLOXACIN HCL 500 MG TABLET PO SCH ×2 (09:15→20:09)
[2016-07-26] MEDS: metFORMIN HCL 500 MG TABLET PO SCH ×2 (09:15→17:14)
[2016-07-26] MEDS: KETOROLAC TROMETHAMINE 30 MG/ML VIAL IV PRN (11:51)
--- NOTE | 2016-07-26 12:35 | PN ---
Subjective - Date and Time Seen Date: 07/26/16 Time: 06:00 Subjective Narrative: Foot pain controlled. Headache gone. All three organisms identified in the lab. Dr. Moy will check again today to determine discharge time. Objective - Review of Systems Generalized/Overall Review: Reports: No Symptoms Reported EENTM: Reports: No Symptoms Reported Respiratory: Reports: No Symptoms Reported Cardiac: Reports: No Symptoms Reported Abdominal: Reports: No Symptoms Reported Genitourinary Symptoms: Reports: No Symptoms Reported Musculoskeletal Complaints: Reports: No Symptoms Reported Neurological: Reports: No Symptoms Reported Skin: Reports: Other - improving Endocrine: Reports: No Symptoms Reported Misc: All systems neg except as marked - Vitals Vitals: Last Vital Signs Selected Entries 07/26/16 10:34 Temperature 36.8 C Temperature Temporal Artery Source Scan Pulse Rate 88 Respiratory 18 Rate Blood Pressure 154/88 O2 Sat by Pulse 94 Oximetry Oxygen Delivery Room Air Method - Exam Constitutional: Present: Alert, Oriented x3, Cooperative, Well developed, Well nourished, No distress ENT Exam: Present: normal ENT inspection, hearing grossly normal Neck: Present: normal inspection Respiratory: Present: chest non-tender, lungs clear, normal breath sounds, no respiratory distress Cardiovascular/Chest: Present: regular rate, rhythm, no edema Abdomen: Present: Normal bowel sounds, soft, nontender, nondistended, no rebound tenderness, no hepatospenomegaly, no masses Extremity: Present: normal inspection, no pedal edema, other - wound improving Skin Exam: Present: normal color, warm/dry, no cyanosis Neurologic: Present: alert, oriented x 3 Appearance: Present: appropriate appearance, appropriate insight, neat, no memory impairment Eye contact: Present: cooperative, good eye contact, normal speech Thoughts: Present: normal thought pattern Assessment/Plan Plan Narrative: same - Problems/Diagnosis (1) Diabetes type 2, uncontrolled Problem: Chronic (2) Diabetic foot ulcer Problem: Acute Qualifiers: Diabetic foot ulcer location: unspecified part of foot Diabetes mellitus type: other specified (including BOB) Laterality: left Non-pressure ulcer stage: unspecified non-pressure ulcer stage Qualified Code(s): E13.621 - Other specified diabetes mellitus with foot ulcer; L97.529 - Non-pressure chronic ulcer of other part of left foot with unspecified severity
[2016-07-26] MEDS: ENOXAPARIN SODIUM 40 MG/0.4 ML SYRG SC SCH (17:14)
[2016-07-26] MEDS: ACETAMINOPHEN 325 MG TABLET PO PRN ×2 (17:21→23:22)
--- NOTE | 2016-07-26 18:27 | PN ---
Subjective - Date and Time Seen Date: 07/26/16 Time: 18:27 Subjective Narrative: Pt seen at bedside resting. States that he feels he is continuing to improve daily. Continues on oral Cipro at this time. Objective - Review of Systems Generalized/Overall Review: Reports: No Symptoms Reported Neurological: Reports: Numbness Skin: Reports: Other - Ulceration left foot, redness left foot/3rd toe - Vitals Vitals: Last Vital Signs Temp 36.7 C 07/26/16 14:21 Pulse 72 07/26/16 14:21 Resp 16 07/26/16 14:21 BP 156/80 07/26/16 14:21 Pulse Ox 92 07/26/16 14:21 - Exam Constitutional: Present: Alert, Oriented x3, Cooperative, No distress Skin Exam: Present: other - Ulcerations remain to left plantar 3rd metatarsal head area and lateral 3rd toe. Still with purulent drainage, however decreased from visit yesterday. Toe with improvement in color, however still red. Will hannah with quick color return. Redness to dorsal left foot resolved. Neurologic: Present: sensory deficit Assessment/Plan Plan Narrative: Plan for d/c home Thursday if improved. Still with some purulence and redness to the 3rd toe. Not stable from infection standpoint for d/c at this time. Still at risk for amputation of toe if no improvement or if worsens. - Problems/Diagnosis (1) Cellulitis of foot Problem: Acute Narrative: Continue oral ABX. (2) Diabetic foot ulcer Problem: Acute Qualifiers: Diabetic foot ulcer location: other Diabetes mellitus type: type 2 Laterality: left Non-pressure ulcer stage: with fat layer exposed Qualified Code(s): E11.621 - Type 2 diabetes mellitus with foot ulcer; L97.522 - Non- pressure chronic ulcer of other part of left foot with fat layer exposed Narrative: New dressing of Aquacel Ag, dry gauze, sharmila, and ISHA applied. Aquacel packed in to ulcerations to help wick out drainage. Will continue to monitor. If continues to improve, possible d/c Thursday.
[2016-07-26] MEDS: ZOLPIDEM TARTRATE 5 MG TABLET PO PRN (23:23)
[2016-07-27] MEDS: NORMAL SALINE 1,000 ML IV PRN (05:21)
[2016-07-27] MEDS: INSULIN LISPRO 100 UNITS/ML VIAL SC SCH ×4 (07:44→20:04)
[2016-07-27] MEDS: ACETAMINOPHEN 325 MG TABLET PO PRN (07:46)
[2016-07-27] MEDS: NICOTINE 21 MG PATC TD SCH (07:47)
[2016-07-27] MEDS: metFORMIN HCL 500 MG TABLET PO SCH ×2 (08:15→17:09)
[2016-07-27] MEDS: CIPROFLOXACIN HCL 500 MG TABLET PO SCH ×2 (08:15→20:01)
--- NOTE | 2016-07-27 13:28 | PN ---
Subjective - Date and Time Seen Date: 07/27/16 Time: 13:25 Subjective Narrative: Foot pain controlled. Headache gone. All three organisms identified in the lab. Concerned about left middle toe. Objective - Review of Systems Generalized/Overall Review: Reports: No Symptoms Reported EENTM: Reports: No Symptoms Reported Respiratory: Reports: No Symptoms Reported Cardiac: Reports: No Symptoms Reported Abdominal: Reports: No Symptoms Reported Genitourinary Symptoms: Reports: No Symptoms Reported Musculoskeletal Complaints: Reports: Other - left middle toe worse Neurological: Reports: No Symptoms Reported Skin: Reports: No Symptoms Reported Endocrine: Reports: No Symptoms Reported Misc: All systems neg except as marked - Vitals Vitals: Last Vital Signs Selected Entries 07/27/16 11:35 Temperature 36.6 C Temperature Oral Source Pulse Rate 69 Respiratory 18 Rate Respiratory Normal Depth Blood Pressure 151/86 Blood Pressure Sitting Position O2 Sat by Pulse 96 Oximetry Oxygen Delivery Room Air Method Oxygen Flow 0 Rate - Exam Constitutional: Present: Alert, Oriented x3, Cooperative, Well developed, Well nourished, No distress ENT Exam: Present: normal ENT inspection Neck: Present: normal inspection Respiratory: Present: lungs clear, no respiratory distress Cardiovascular/Chest: Present: regular rate, rhythm, no murmur Abdomen: Present: Normal bowel sounds, soft, nontender, nondistended, no rebound tenderness, no hepatospenomegaly, no masses Extremity: Present: no pedal edema, other - left middle toe more red purple, more swollen, area of white pus peaking through Neurologic: Present: alert, oriented x 3 Appearance: Present: appropriate appearance, appropriate insight, neat, no memory impairment Eye contact: Present: cooperative, good eye contact, normal speech Thoughts: Present: normal thought pattern Assessment/Plan Plan Narrative: I discussed this by phone with Dr. Moy. Toe amputation MAY be required. She will need to look at the toe tomorrow. IF so, will be Thursday. Patient is aware. - Problems/Diagnosis (1) Diabetes type 2, uncontrolled Problem: Chronic (2) Diabetic foot ulcer Problem: Acute Qualifiers: Diabetic foot ulcer location: unspecified part of foot Diabetes mellitus type: other specified (including BOB) Laterality: left Non-pressure ulcer stage: unspecified non-pressure ulcer stage Qualified Code(s): E13.621 - Other specified diabetes mellitus with foot ulcer; L97.529 - Non-pressure chronic ulcer of other part of left foot with unspecified severity
[2016-07-27] MEDS: HYDROcodone/ACETAMINOPHEN 1 EACH TABLET PO PRN (14:57)
[2016-07-27] MEDS: ENOXAPARIN SODIUM 40 MG/0.4 ML SYRG SC SCH (17:11)
[2016-07-28 06:07] LABS: Mean Corpuscular Hemoglobin 32.2 pg (27-31); Neutrophil # 6.9 K/mm3 (1.3-6.0); Neutrophil % 64.6 % (42-75.0); Platelet Count 279 K/mm3 (150-450); Red Blood Count 4.35 M/mm3 (4.7-6.0); Red Cell Distribution Width 12.3 % (11.5-14.0); White Blood Count 10.6 K/mm3 (4.0-10.5)
[2016-07-28 06:14] LABS: Anion Gap 13.9 mmol/L (6.8-13.8); BUN/Creatinine Ratio 27.7 (9.0-21.6); Calcium * 9.4 mg/dL (7.9-10.9); Estimated Creat Clear 127.1; Potassium 3.9 mmol/L (3.4-4.6)
[2016-07-28] MEDS: INSULIN LISPRO 100 UNITS/ML VIAL SC SCH ×4 (06:37→21:44)
[2016-07-28] MEDS: NICOTINE 21 MG PATC TD SCH ×2 (06:37→06:40)
[2016-07-28] MEDS: HYDROcodone/ACETAMINOPHEN 1 EACH TABLET PO PRN (06:50)
[2016-07-28] MEDS: METOPROLOL TARTRATE 25 MG TABLET PO SCH ×2 (09:31→21:44)
[2016-07-28] MEDS: metFORMIN HCL 500 MG TABLET PO SCH ×2 (09:31→17:21)
[2016-07-28] MEDS: CIPROFLOXACIN HCL 500 MG TABLET PO SCH ×2 (09:31→21:44)
--- NOTE | 2016-07-28 10:47 | PN ---
Subjective - Date and Time Seen Date: 07/28/16 Time: 07:30 Subjective Narrative: Pt seen at bedside resting. States that he noticed yesterday with showering that his toe was looking worse. Did receive a phone call from Dr. Kelly Bland with concerns over worsening of the toe as well. Pt now considering surgical care. Objective - Review of Systems Generalized/Overall Review: Reports: No Symptoms Reported Neurological: Reports: Numbness Skin: Reports: Other - Ulceration left foot, redness left 3rd toe. - Vitals Vitals: Last Vital Signs Temp 36.5 C 07/28/16 09:47 Pulse 83 07/28/16 09:47 Resp 18 07/28/16 09:47 BP 162/97 07/28/16 09:47 Pulse Ox 91 07/28/16 09:47 - Abnormal Lab Findings Abnormal Lab Findings: Abnormal Lab Results 07/28/16 07/28/16 Range/Units 06:00 06:00 WBC 10.6 H (4.0-10.5) K/mm3 RBC 4.35 L (4.7-6.0) M/mm3 Hct 40.0 L (42.0-52.0) % MCH 32.2 H (27-31) pg MPV 11.0 H (6.0-9.5) fl Immature Gran % (Auto) 0.50 H (0.001-0.429) % Immature Gran # (Auto) 0.05 H (0.000-0.0310) K/mm3 Neutrophils # 6.9 H (1.3-6.0) K/mm3 Anion Gap 13.9 H (6.8-13.8) mmol/L Est GFR (Non-Af Amer) 133 H D (60-130) mL/min BUN/Creatinine Ratio 27.7 H (9.0-21.6) Random Glucose 137 H (70-110) mg/dL - Exam Constitutional: Present: Alert, Oriented x3, Cooperative, No distress Skin Exam: Present: other - Ulcerations remain to left 3rd toe and plantar 3rd metatarsal head. Still with purulence. Toe now more dusky in color with poor color return. Neurologic: Present: sensory deficit Assessment/Plan Plan Narrative: Toe worsening since Thursday. Discussed with pt further care of the toe. It is my recommendation that he undergo amputation. After much consideration, he has agreed with this plan. Consent to be obtained and signed for amputation left 3rd toe. This will be performed today under local anesthetic only. Pt may be d/c home tomorrow if stable following surgery. - Problems/Diagnosis (1) Cellulitis of foot Problem: Acute Narrative: Continue ABX. Foot markedly improved. Will amputate 3rd toe today. (2) Diabetic foot ulcer Problem: Acute Qualifiers: Diabetic foot ulcer location: other Diabetes mellitus type: type 2 Laterality: left Non-pressure ulcer stage: with fat layer exposed Qualified Code(s): E11.621 - Type 2 diabetes mellitus with foot ulcer; L97.522 - Non- pressure chronic ulcer of other part of left foot with fat layer exposed Narrative: New dressing of Aquacel Ag, dry gauze, and tape applied. Plan to go to OR today for amputation of 3rd toe left foot. NPO now.
[2016-07-28] MEDS ORDERED: BUPIVACAINE HCL 50 ML VIAL IJ ONE (12:40)
[2016-07-28] MEDS ORDERED: LIDOCAINE HCL 50 ML VIAL IJ ONE (12:40)
[2016-07-28] MEDS: oxyCODONE HCL/ACETAMINOPHEN 1 TAB TABLET PO PRN ×2 (14:24→22:03)
[2016-07-28] MEDS ORDERED: MEPERIDINE HCL/PF 50 MG/ML SYRG IM ONE (14:54)
[2016-07-28] MEDS ORDERED: LORazepam 0.5 MG TABLET PO ONE (14:55)
[2016-07-28] MEDS ORDERED: PROMETHAZINE HCL 50 MG/ML AMPUL IM ONE (15:02)
[2016-07-28] MEDS ORDERED: PROMETHAZINE HCL 25 MG/ML AMPUL IM ONE (15:13)
[2016-07-28] MEDS: ENOXAPARIN SODIUM 40 MG/0.4 ML SYRG SC SCH (17:21)
--- NOTE | 2016-07-28 18:33 | PN ---
Subjective - Date and Time Seen Date: 07/28/16 Time: 07:30 Subjective Narrative: Foot pain controlled. Headache gone. All three organisms identified in the lab. Concerned about left middle toe. We discussed the whole situation once again, and seemed to aleviate all of his concern and answer all of his questions to his satisfaction. Objective - Review of Systems Generalized/Overall Review: Reports: No Symptoms Reported EENTM: Reports: No Symptoms Reported Respiratory: Reports: No Symptoms Reported Cardiac: Reports: No Symptoms Reported Abdominal: Reports: No Symptoms Reported Genitourinary Symptoms: Reports: No Symptoms Reported Musculoskeletal Complaints: Reports: Other - foot infection Neurological: Reports: No Symptoms Reported Skin: Reports: No Symptoms Reported Endocrine: Reports: No Symptoms Reported Misc: All systems neg except as marked - Vitals Vitals: Last Vital Signs Selected Entries 07/28/16 06:42 Temperature 35.8 C L Temperature Temporal Artery Source Scan Pulse Rate 84 Respiratory 16 Rate Respiratory Normal Depth Blood Pressure 172/91 Blood Pressure Supine Position O2 Sat by Pulse 91 Oximetry Oxygen Delivery Room Air Method - Abnormal Lab Findings Abnormal Lab Findings: Abnormal Lab Results 07/28/16 07/28/16 Range/Units 06:00 06:00 WBC 10.6 H (4.0-10.5) K/mm3 RBC 4.35 L (4.7-6.0) M/mm3 Hct 40.0 L (42.0-52.0) % MCH 32.2 H (27-31) pg MPV 11.0 H (6.0-9.5) fl Immature Gran % (Auto) 0.50 H (0.001-0.429) % Immature Gran # (Auto) 0.05 H (0.000-0.0310) K/mm3 Neutrophils # 6.9 H (1.3-6.0) K/mm3 Anion Gap 13.9 H (6.8-13.8) mmol/L Est GFR (Non-Af Amer) 133 H D (60-130) mL/min BUN/Creatinine Ratio 27.7 H (9.0-21.6) Random Glucose 137 H (70-110) mg/dL - Exam Constitutional: Present: Alert, Oriented x3, Cooperative, Well developed, Well nourished, No distress ENT Exam: Present: normal ENT inspection, hearing grossly normal Neck: Present: normal inspection Respiratory: Present: normal breath sounds, no respiratory distress Cardiovascular/Chest: Present: regular rate, rhythm, no murmur Abdomen: Present: Normal bowel sounds, soft, nontender, nondistended, no rebound tenderness, no hepatospenomegaly, no masses Extremity: Present: other - left foot much better, but left middle toe remains red, purpled swollen, areas of pus oozing out. Neurologic: Present: alert, oriented x 3 Appearance: Present: appropriate appearance, appropriate insight, neat, no memory impairment Eye contact: Present: cooperative, good eye contact, normal speech Thoughts: Present: normal thought pattern Assessment/Plan Plan Narrative: infected left toe. needs amputation. will discuss with Dr. Moy. - Problems/Diagnosis (1) Diabetes type 2, uncontrolled Problem: Chronic (2) Diabetic foot ulcer Problem: Acute Qualifiers: Diabetic foot ulcer location: unspecified part of foot Diabetes mellitus type: other specified (including BOB) Laterality: left Non-pressure ulcer stage: unspecified non-pressure ulcer stage Qualified Code(s): E13.621 - Other specified diabetes mellitus with foot ulcer; L97.529 - Non-pressure chronic ulcer of other part of left foot with unspecified severity
[2016-07-29] MEDS: INSULIN LISPRO 100 UNITS/ML VIAL SC SCH ×2 (07:05→12:02)
[2016-07-29] MEDS: NICOTINE 21 MG PATC TD SCH (07:06)
[2016-07-29] MEDS: HYDROcodone/ACETAMINOPHEN 1 EACH TABLET PO PRN ×2 (07:08→14:52)
[2016-07-29] MEDS: CIPROFLOXACIN HCL 500 MG TABLET PO SCH (08:59)
[2016-07-29] MEDS: metFORMIN HCL 500 MG TABLET PO SCH (08:59)
[2016-07-29] MEDS: METOPROLOL TARTRATE 25 MG TABLET PO SCH (09:00)
[2016-07-29 11:06] VITALS: BP 172/88
[2016-07-29] MEDS: oxyCODONE HCL/ACETAMINOPHEN 1 TAB TABLET PO PRN (12:02)
--- NOTE | 2016-07-29 12:49 | PN ---
Subjective - Date and Time Seen Date: 07/29/16 Time: 12:15 Subjective Narrative: Pt seen at bedside resting. States that he feels much better today. Has only had 2 pain pills since surgery. Relates little pain to his left foot. Is ready to go home. Objective - Review of Systems Generalized/Overall Review: Reports: No Symptoms Reported Neurological: Reports: Numbness Skin: Reports: Other - Ulceration left foot - Vitals Vitals: Last Vital Signs Temp 36.8 C 07/29/16 11:05 Pulse 86 07/29/16 11:05 Resp 18 07/29/16 11:05 BP 172/88 07/29/16 11:05 Pulse Ox 96 07/29/16 11:05 - Exam Constitutional: Present: Alert, Oriented x3, Cooperative, No distress Skin Exam: Present: other - Dressing to left foot CDI with minimal bloody drainage from surgery. Ulceration to plantar aspect left foot sub 3rd metatarsal head unchanged in size from yesterday's visit. Decrease in drainage , no longer purulent, now serosanguinous. Incision to amputation site of 3rd toe left foot well approximated with sutures intact. Scant sanguinous drainage. Erythema resolved. Neurologic: Present: sensory deficit Appearance: Present: appropriate appearance Assessment/Plan Plan Narrative: Surgical dressing removed. Incision well approximated with sutures intact. New DSD applied. To be kept CDI. Pt ok for d/c home today if clear per PCP. Will f/u this thursday for dressing change. May bear weight on the surgical foot in surgical shoe with crutch assist. Advised keeping weight to heel. Will continue on current oral ABX on discharge. Recommend 2 more weeks of ABX. May continue percocet for pain. Educated on SOI and he is to call or present to ED immediately should any develop. - Problems/Diagnosis (1) Cellulitis of foot Problem: Acute (2) Diabetic foot ulcer Problem: Acute Qualifiers: Diabetic foot ulcer location: other Diabetes mellitus type: type 2 Laterality: left Non-pressure ulcer stage: with fat layer exposed Qualified Code(s): E11.621 - Type 2 diabetes mellitus with foot ulcer; L97.522 - Non- pressure chronic ulcer of other part of left foot with fat layer exposed
--- NOTE | 2016-07-29 14:33 | DS ---
(1) Diabetes type 2, uncontrolled Problem: Chronic (2) Diabetic foot ulcer Problem: Acute Qualifiers: Diabetic foot ulcer location: unspecified part of foot Diabetes mellitus type: other specified (including BOB) Laterality: left Non-pressure ulcer stage: unspecified non-pressure ulcer stage Qualified Code(s): E13.621 - Other specified diabetes mellitus with foot ulcer; L97.529 - Non-pressure chronic ulcer of other part of left foot with unspecified severity (3) gangrene left middle toe Problem: Acute (4) Migraine Problem: Resolved Description of Stay: Treated with antibiotics, which were adjusted based on cultures. Consultation was obtained with podiatry. Ultimately left middle toe declare itself, and was amputated. Patient is doing very well, and may go home. Procedures Performed: none - Amputation left middle toe Discharge Disposition: Home self care Disposition: Home self-care Condition: Good Discharge Activity: Weight bearing - with surgical boot and crutch assist Discharge Diet: Consistent carbs Consultation Done:: Dr. Moy, podiatry Problem Oriented Discharge Instructions to Patient/Family: Bone and Joint Infections, Adult Additional Patient Instructions (free text): F/u with 08/01/16 May bear weight on the surgical foot in surgical shoe with crutch assist. Keep weight on heel. Recommend 2 weeks more of antibiotics. Percocet for pain control. He may consider me to be his primary care physician if he wishes. Prescriptions (Any new or edited meds): Ciprofloxacin HCl [Cipro] 500 mg PO BID #30 tab Gabapentin 300 mg PO BID #60 capsule HYDROcodone/ACETAMINOPHEN [[place] 5-325] 2 each PO QID PRN #20 tablet PRN Reason: Pain Metoprolol Tartrate [Lopressor] 25 mg PO BID #60 tablet metFORMIN HCL [Glucophage] 500 mg PO BIDWM #60 tablet Complete Home Medications List: Complete Home Medication List: Acetaminophen [Tylenol] 650 mg PO QID PRN #0 tablet 07/29/16 Ciprofloxacin HCl [Cipro] 500 mg PO BID #30 tab 07/29/16 Gabapentin 300 mg PO BID #60 capsule 07/29/16 HYDROcodone/ACETAMINOPHEN [[place] 5-325] 2 each PO QID PRN #20 tablet 07/29/16 Metoprolol Tartrate [Lopressor] 25 mg PO BID #60 tablet 07/29/16 metFORMIN HCL [Glucophage] 500 mg PO BIDWM #60 tablet 07/29/16
== END 2016-07-29 15:50 | disposition home or self-care (01) | DRG 256 ==
LOC: ER 14:30 → MS 17:00
PROVIDERS: ADMIT Allergy & Immunology; ATTEND Allergy & Immunology
PROC: 0HBNXZZ Excision of Left Foot Skin, External Approach (ICD-10-PCS; principal; 2016-07-22)
PROC: 0Y6U0Z0 Detachment at Left 3rd Toe, Complete, Open Approach (ICD-10-PCS; 2016-07-28)
DX: E11.52 Type 2 diabetes mellitus with diabetic peripheral angiopathy with gangrene (principal); L97.422 Non-pressure chronic ulcer of left heel and midfoot with fat layer exposed; E11.65 Type 2 diabetes mellitus with hyperglycemia; F17.210 Nicotine dependence, cigarettes, uncomplicated; Z79.84 Long term (current) use of oral hypoglycemic drugs

== ENCOUNTER 2016-08-06 13:30 | Inpatient (IN) | payer MEDICAID ==
[2016-08-06] MEDS ORDERED: KETOROLAC TROMETHAMINE 30 MG/ML VIAL IV ONE (13:48)
[2016-08-06] MEDS ORDERED: HYDROmorphone HCL 1 MG/ML DISP.SYRIN IV ONE ×2 (13:48→20:44)
[2016-08-06] MEDS ORDERED: HYDROmorphone HCL 1 MG/ML DISP.SYRIN ONE (14:00)
[2016-08-06] MEDS ORDERED: KETOROLAC TROMETHAMINE 30 MG/ML VIAL ONE (14:01)
[2016-08-06] MEDS ORDERED: PIPERACILLIN SODIUM/TAZOBACTAM 3.375 GM in DEXTROSE 5 % IN WATER 100 ML IV ONE ×2 (14:02)
[2016-08-06] MEDS ORDERED: VANCOMYCIN HCL 750 MG in DEXTROSE 5 % IN WATER 250 ML IV ONE ×2 (14:02)
[2016-08-06 14:06] LABS: Hematocrit 39.5 % (42.0-52.0); Hemoglobin 13.4 gm/dL (13.5-18.0); Mean Cell Volume 93.2 fl (78-100); Mean Corpuscular Hemoglobin 31.6 pg (27-31); Mean Corpuscular Hgb Conc 33.9 g/dl (32-36); Mean Platelet Volume 11.2 fl (6.0-9.5); Neutrophil % 87.7 % (42-75.0); Platelet Count 424 K/mm3 (150-450); Red Blood Count 4.24 M/mm3 (4.7-6.0); Red Cell Distribution Width 12.9 % (11.5-14.0); White Blood Count 26.3 K/mm3 (4.0-10.5)
[2016-08-06 14:11] LABS: Total Cells Counted 100
--- NOTE | 2016-08-06 14:16 | ERNOTE ---
Integumentary HPI - Narrative Date of Service: 08/06/16 - General Presenting Symptoms: other - cellulitis Time Seen by Provider: 08/06/16 13:50 Source: patient Exam Limitations: no limitations - Immun/Allergies/Home Medications Immunizations: IMMUNIZATION HX Immunizations Up to Date No History of Influenza Vaccine No Hx Pneumococcal Vaccination No Allergies/Adverse Reactions: Allergies Allergy/AdvReac Type Severity Reaction Status Date / Time No Known Allergies Allergy Verified 08/06/16 13:39 Home Medications: HOME MEDICATIONS Acetaminophen [Tylenol] 650 mg PO QID PRN #0 tablet 07/29/16 [Last Taken Unknown ] Gabapentin 300 mg PO BID #60 capsule 07/29/16 [Last Taken Unknown] HYDROcodone/ACETAMINOPHEN [[place] 5-325] 2 each PO QID PRN #20 tablet 07/29/16 [ Last Taken Unknown] Metoprolol Tartrate [Lopressor] 25 mg PO BID #60 tablet 07/29/16 [Last Taken Unknown] metFORMIN HCL [Glucophage] 500 mg PO BIDWM #60 tablet 07/29/16 [Last Taken Unknown] Sulfamethoxazole/Trimethoprim [Bactrim] 1 tab PO BID 08/06/16 [Last Taken Unknown] - History of Present Illness Narrative: Pt. comes in with c/o L foot and leg pain, redness and swelling for over a month. Pt. was diagnosed with gangrene at the beginning of July and has his 4th and 5th metatarsals amputated 6 days ago. Since then pt. states that he noted it was improving slightly and then worsened greatly yesterday. Pt. denies any alleviating or aggravating factors, SOB, CP, NVD, but does c/o malaise and fever. Review of Systems - Review of Systems Constitutional: Present: fever, chills, weakness, fatigue, malaise. Absent: recent illness EYE: Present: no symptoms reported ENT: Present: no symptoms reported Respiratory: Present: no symptoms reported. Absent: shortness of breath, cough , wheezing Cardiology: Present: no symptoms reported. Absent: chest pain, palpitations, edema Gastrointestinal/Abdominal: Present: no symptoms reported. Absent: nausea, vomiting, diarrhea Genitourinary: Present: no symptoms reported. Absent: frequency, decreased urinary output Musculoskeletal: Present: no symptoms reported. Absent: back pain, joint pain Skin: Present: other - redness. Absent: rash, change in hair/nails Neurological: Present: no symptoms reported. Absent: headache, dizziness/light- headedness, numbness, tingling All Other Systems: All systems neg except as marked - Patient's Past Medical History Patient History - Medical: Diabetes Type 2 Patient History - Cardiac/Respiratory: No pertinent hx Patient History - Cancer: No Hx of Cancer Patient History - Surgical Procedures: Amputation Patient History - Other: None - Family History Mother Family History - Medical: No pertinent hx Family History - Cardiac/Respiratory: No pertinent hx Family History - Cancer: No pertinent family hx Father Family History - Medical: No pertinent hx Family History - Cardiac/Respiratory: No pertinent hx Family History - Cancer: No pertinent family hx - Social History Living Situations: spouse Abuse History: No History of abuse Psych History: No pertinent hx Smoking Status: Current every day smoker Have you smoked in the past 12 months: Yes Alcohol Use: none Drug Use: none - Immunizations Immunizations Up to Date: No Hx Pneumococcal Vaccination: No History of Influenza Vaccine: No Physical Exam - Physical Exam General Appearance: Present: wd/wn, alert, no apparent distress Eye Exam: Normal inspection: bilateral, PERRL: bilateral, EOMI: bilateral Neck: Present: nontender. Absent: lymphadenopathy (R), lymphadenopathy (L) Respiratory: Present: no respiratory distress, normal breath sounds, no accessory muscle use, chest nontender, lungs clear. Absent: rales, rhonchi, wheezing Cardiovascular/Chest: Present: no murmur, tachycardia Peripheral Pulses: N=norm/S=strong/W=weak/B=bound/A=absent: Carotid (R): Normal , Carotid (L): Normal, Radial (R): Normal, Radial (L): Normal, Femoral (R): Normal, Femoral (L): Normal, Dorsalis-pedis (R): Weak, Dorsalis-pedis (L): Weak Gastrointestinal/Abdominal: Present: normal bowel sounds, nontender, nondistended, soft, no organomegaly Back Exam: Present: normal inspection, normal range of motion, no CVA tenderness , no vertebral tenderness Extremity Exam: Present: decreased range of motion - L ankle and foot, other - necrotic L great toe Neurological Exam: Present: alert, oriented, normal mood/affect, 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 ED Progress - Date and Time Seen: Date and Time: 08/06/16 16:[address] Buchanan and she accepts pt. for admit. Discussed with Dr Moy and she acepts consult and would like me to order MRI for inpatient. - Results and Orders Patient's Lab Results:: I have reviewed the patient's lab results. - Vital Signs Patient's Vital Signs:: I have reviewed the patient's vital signs. Vital Signs: Vital Signs 08/06/16 13:37 Temperature 38.7 C H Pulse Rate 121 H Respiratory 16 Rate Blood Pressure 144/91 O2 Sat by Pulse 94 Oximetry - X-Ray X-Ray #1 X-Ray: ankle Interpretation: Reviewed by me X-ray Comments: no signs of gas gangrene above foot X-Ray #2 X-Ray: leg Interpretation: Reviewed by me X-ray Comments: no signs of gas gangrene - Progress/Reassessment Chief Complaint: Cellulitis Progress:: Improved Departure Clinical Impression: Gas gangrene Sepsis Qualifiers: Sepsis type: sepsis due to unspecified organism Qualified Code(s): A41.9 - Sepsis, unspecified organism - Departure Disposition: [facility] Condition: Serious
[2016-08-06 14:17] LABS: Albumin * 2.6 gm/dl (3.4-5.0); Anion Gap 21.8 mmol/L (6.8-13.8); BUN/Creatinine Ratio 25.9 (9.0-21.6); Bilirubin, Total 0.5 mg/dL (0.0-1.1); Ca. Corrected For Albumin 10.4 mg/dL (8.4-10.2); Calcium * 9.6 mg/dL (7.9-10.9); Carbon Dioxide 21.4 mmol/L (24-32.6); Potassium 4.2 mmol/L (3.4-4.6); Total Protein 8.9 gm/dL (6.2-8.2)
[2016-08-06 14:28] LABS: Band 15 % (0-2.0); Dohle Bodies 2+; Lymphocyte 3 % (20-51); Monocyte 5 % (0-9); Neutrophil 77 % (42-75); Neutrophil # 20.3 K/mm3 (1.3-6.0); Platelet Estimate Normal (NORMAL); RBC Morphology Normal (NORMAL); Toxic Granulation 2+
[2016-08-06] MEDS: NORMAL SALINE 1,000 ML IV PRN ×3 (14:30→16:22)
[2016-08-06] MEDS: SACCHAROMYCES BOULARDII 250 MG CAPSULE PO SCH (18:02)
[2016-08-06] MEDS ORDERED: oxyCODONE HCL/ACETAMINOPHEN 1 TAB TABLET PO PRN (19:39)
[2016-08-06] MEDS: oxyCODONE HCL/ACETAMINOPHEN 1 TAB TABLET PO PRN (20:19)
[2016-08-06] MEDS: NICOTINE 21 MG PATC TD SCH (20:20)
[2016-08-06] MEDS ORDERED: DEXTROSE 5% IV ONE ×2 (20:56)
[2016-08-06] MEDS ORDERED: WATER IV ONE ×2 (20:56)
[2016-08-06] MEDS ORDERED: VANCOMYCIN HCL IV ONE ×2 (20:56)
[2016-08-06] MEDS ORDERED: METOPROLOL TARTRATE 25 MG TABLET PO SCH (21:00)
--- NOTE | 2016-08-06 21:04 | HP ---
Chief Complaint - Chief Complaint Date of Service: 08/06/16 Time of Service: 20:02 Chief Complaint: diabetic foot wound infection, sepsis History of Present Illness: Dmitry is a 61 year old male pt (no pcp) with a PMH of HTN, recently diagnosed diabetes and diabetic foot ulcer who presented to the ER with chills and malaise. Patient was admitted 07/21/16 for the same diabetic ulcer on the sole of his left foot, was started on IV antibiotics and during that admission had his left 3rd toe amputated. Patient discharged 07/29/16 on cipro 500 mg bid. Followed up with his surgeon, Dr Gee, on 08/01/[address] Gee, the wound "looked great" at this ov. Patient f/u again 08/04/16 - c/o increased wound drainage and increased pain with wound, Dr. Gee obtained xrays and cultured the wound on the sole of his foot (which did not grow anything), then changed him to Bactim DS. Patient presented on his on to Dr. Gee's office on 08/06/16 with worsening symptoms and was sent to ER for eval. ER evaluation revealed wbc 26.3 with 87.7 neutrophils and 15 bands; esr 102, crp 43.4, BUN/cr 43/1.66, lactic acid 5.7, procalcitonin 0.67. left tib/fib and left ankle xray wnl. Patient to be admitted for diabetic foot ulcer - possible osteomyelitis, cellulitis, and sepsis. - Patient's Past Medical History Patient History - Medical: Diabetes Type 2 - uncontrolled, officially diagnosed on hospital admission 07/21/16, Migraines, Other - history of osteomyelitis with gangrene left 3rd toe - see surgical hx. Patient History - Cardiac/Respiratory: Hypertension - on lopressor Patient History - Cancer: No Hx of Cancer Patient History - Surgical Procedures: Amputation - left 3rd toe amputated on 02/01, Hernia Repair Patient History - Other: None - Family History Mother Family History - Medical: No pertinent hx Family History - Cardiac/Respiratory: No pertinent hx Family History - Cancer: No pertinent family hx Father Family History - Medical: Diabetes Type 2 Family History - Cardiac/Respiratory: No pertinent hx Family History - Cancer: No pertinent family hx - Social History Living Situations: alone Abuse History: No History of abuse Psych History: No pertinent hx Smoking Status: Current every day smoker Have you smoked in the past 12 months: Yes Do you dip or chew tobacco: No Patient requests Smoking Cessation Consult: No Initiate information on Smoking Cessation: No Alcohol Use: none Drug Use: none - Immunizations Immunizations Up to Date: No Hx Pneumococcal Vaccination: No History of Influenza Vaccine: No Review Of Systems (GEN) - Review of Systems Generalized/Overall Review: Present: Chills, Fever, Malaise, Fatigue EENTM: Present: No Symptoms Reported Respiratory: Present: No Symptoms Reported Cardiac: Present: No Symptoms Reported Abdominal: Present: No Symptoms Reported Genitourinary: Present: No Symptoms Reported Musculoskeletal: Present: Joint Pain, Joint Swelling Neurological: Present: No Symptoms Reported Skin: Present: Change in Color, Other - diabetic foot wound on sole of left foot. new wound on top of left 1st toe with drainage. Endocrine: Present: No Symptoms Reported Misc: All systems neg except as marked Immunizations: IMMUNIZATION HX Immunizations Up to Date No History of Influenza Vaccine No Hx Pneumococcal Vaccination No Allergies/Adverse Reactions: Allergies Allergy/AdvReac Type Severity Reaction Status Date / Time No Known Allergies Allergy Verified 08/06/16 17:50 Home Medications: HOME MEDICATIONS Acetaminophen [Tylenol] 650 mg PO QID PRN #0 tablet 07/29/16 [Last Taken Unknown ] Gabapentin 300 mg PO BID #60 capsule 07/29/16 [Last Taken Unknown] HYDROcodone/ACETAMINOPHEN [Jasper 5-325] 2 each PO QID PRN #20 tablet 07/29/16 [ Last Taken Unknown] Metoprolol Tartrate [Lopressor] 25 mg PO BID #60 tablet 07/29/16 [Last Taken Unknown] metFORMIN HCL [Glucophage] 500 mg PO BIDWM #60 tablet 07/29/16 [Last Taken Unknown] Sulfamethoxazole/Trimethoprim [Bactrim] 1 tab PO BID 08/06/16 [Last Taken Unknown] Exam - Exam Vital Signs: Vital Signs - Last Taken Temp 36.9 C 08/06/16 17:24 Pulse 88 08/06/16 17:24 Resp 16 08/06/16 17:24 BP 116/75 08/06/16 17:24 Pulse Ox 93 08/06/16 17:24 Constitutional: Present: Alert, Oriented x3, Cooperative, Mild distress - in pain with movement, Looks Older than stated age ENT Exam: Present: hearing grossly normal Eye Exam: bilateral eye: normal inspection Neck: Present: full range of motion, supple Breasts: Present: Exam deferred Respiratory: Present: lungs clear, normal breath sounds Cardiovascular/Chest: Present: normal peripheral pulses, regular rate, rhythm, no murmur Peripheral Pulses: carotid (R): 2+ - strong, carotid (L): 2+ - strong, dorsalis- pedis (R): 1+ - weak, dorsalis-pedis (L): 1+ - weak, radial (R): 2+ - strong, radial (L): 2+ - strong Abdomen: Present: Normal bowel sounds, soft, nontender, nondistended /Rectal: Present: Exam deferred Extremity: Present: no calf tenderness, other - distal end of left sole of foot has 2 cm x 2 cm ulcer with small amount of serous drainage. top middle of left great toe has 2.5 cm x 2.5 cm ulcer with wet macerated wound bed - from the wound bed is a length 7-8 cm of black eschar that extends proximally towards the left ankle. The first toe and entire foot up to just above the ankle are reddened and warm to the touch. Skin Exam: Present: no cyanosis, other - distal end of left sole of foot has 2 cm x 2 cm ulcer with small amount of serous drainage. top middle of left great toe has 2.5 cm x 2.5 cm ulcer with wet macerated wound bed - from the wound bed is a length 7-8 cm of black eschar that extends proximally towards the left ankle. The first toe and entire foot up to just above the ankle are reddened and warm to the touch. Diagnostic Studies: Laboratory Results Laboratory Tests 08/06/16 13:50 WBC 26.3 H Hgb 13.4 L Hct 39.5 L Plt Count 424 Neutrophils % 87.7 H Band Neuts % (Manual) 15 H ESR 102 BUN 43 Creatinine 1.66 Lactic Acid, Venous 5.7 C-Reactive Prot, Quant 43.4 Procalcitonin 0.67 Exam Date: 08/06/2016 15:17 Technique: 2 views of the left tibia and fibula obtained. Four images utilized. Findings: The knee and ankle are incompletely evaluated on this exam but alignment is within normal limits. No fractures identified. No bony erosions identified. No abnormal periosteal reaction identified. No soft tissue air identified. There are vascular calcifications. Ankle was evaluated on separate ankle images. IMPRESSION: NO ACUTE OSSEOUS PATHOLOGY IDENTIFIED. Exam Date: 08/06/2016 15:17 Technique: 3 views of the left ankle obtained. Four images utilized. Findings: Alignment appears within normal limits. There are degenerative changes. There is some calcification of the interosseous membrane suggesting remote trauma. No acute fractures identified. There is spurring of the calcaneus. There is a bony ossicle off the talus suggesting remote trauma. No soft tissue air to suggest gas gangrene identified. IMPRESSION: ARTHRITIC CHANGES. CHANGES SUGGESTING REMOTE TRAUMA. NO ACUTE OSSEOUS PATHOLOGY IDENTIFIED. Assessment/Plan - Narrative Narrative: Severe sepsis - Criteria: - Source of Infection: - 1. Skin and soft tissue infection - cellulitis - 2. Wound infection - diabetic foot ulcer - 3. bone / joint infection - suspected osteomyelitis - S/S of infection present and new to patient - temp of 38.7 in the ER - tachycardia - HR 121 in ER - Leukocytosis - WBC 26.3 - Organ dysfunction criteria - SBP decrease >40 mm Hg - baseline outpatient blood pressure: 150/88 - SBP as low as 106 inpatient - Lactic acid greater than 2.0 - Sepsis bolus at 30 ml/kg = 2994 ml - started in ER and completed once admitted - continue IV fluids at 130 ml / hr for aggressive iv rehydration for another liter - Lactic acid 5.7 - repeat 1.7 - hold metformin for now, as this can increase lactic acidosis - Antibiotics - Vancomycin 2 gm iv q daily - Day #1 - dosed with help per [facility] / per renal function - Zosyn 3.375 mg iv q 8 hours - Day #1 - dose per [facility] / per renal function. - Start florastar probiotics, czech yogurt at bedtime. - Blood cultures x2 pending - Wound on top of left great toe is new, cultured on admission. - telemetry - cont O2 monitoring - contact precautions until wound culture is back Diabetic Foot ulcer x2 - minimal drainage on ulcer of sole of left foot - wound culture (on sole of left foot) from previous admission grew: - staph aureus, kleb oxytoca, and pseudomonas. - cultured by dr gee on 08/04/16 with no growth seen. - New ulcer on top of left great toe - given DM, at risk for MRSA infection. - consult dr gee to follow. - Antiobiotics - Vancomycin 2 gm iv daily - Day #1 - Zosyn 3.375 mg iv q 8 hours - Day #1 Cellulitis - left foot - very broad erythema across left foot and left great toe, NOT well demarcated. - suspecious for strep. - wash leg / foot with soap and water x1 - dressing per dr gee is 4x4s on top, then cover with gauze roll and then ricci wrap (non-compressive). - Antibiotics - Vancomycin 2 gm iv daily - Day #1 - Zosyn 3.375 mg iv q 8 hours - Day #1 Osteomyelitis, left foot - suspected - MRI scheduled in the am. - provide adequate pain management. - Consult Dr. Gee for recommendations. JOSE ELIAS - creatinine 1.66, baseline 0.6-0.9. - likely secondary to infection vs poor oral intake vs both - sepsis IV bolus infused - give an additional liter at 130 ml/hr. - recheck labs in lab - creatinine should improve with iv hydration. Uncontrolled Diabetes - hold metformin secondary to lactic acidosis - start lantus 12 units q hs - Accu checks AC with low dose humalog sliding scale as needed - glucerna at bedtime. - check microalbumin - consistent carb diet HTN - vital signs q 4 hours - hold lopressor until blood pressure improved, on the lower end currently Tobacco abuse - nicotine patch - tobacco cessation teaching ordered. Code Status: Full Code VTE: lovenox GI proph: protonix po. - Assessment/Plan (1) Severe sepsis Problem: Acute (2) Diabetic foot ulcer Problem: Acute Qualifiers: Diabetic foot ulcer location: unspecified part of foot Diabetes mellitus type: type 2 Laterality: left Non-pressure ulcer stage: unspecified non- pressure ulcer stage Qualified Code(s): E11.621 - Type 2 diabetes mellitus with foot ulcer; L97.529 - Non-pressure chronic ulcer of other part of left foot with unspecified severity (3) Cellulitis of foot Problem: Acute (4) Osteomyelitis Problem: Suspected Qualifiers: Osteomyelitis type: unspecified type Osteomyelitis location: foot Laterality: left Qualified Code(s): M86.9 - Osteomyelitis, unspecified (5) Diabetes type 2, uncontrolled Problem: Chronic Qualifiers: Diabetes mellitus complication status: with skin complications Diabetes mellitus complication detail: with foot ulcer Diabetes mellitus mcc insulin use: without mcc use Qualified Code(s): E11.621 - Type 2 diabetes mellitus with foot ulcer; E11.65 - Type 2 diabetes mellitus with hyperglycemia; L97.509 - Non-pressure chronic ulcer of other part of unspecified foot with unspecified severity (6) HTN (hypertension) Problem: Chronic Qualifiers: Hypertension type: essential hypertension Qualified Code(s): I10 - Essential (primary) hypertension (7) JOSE ELIAS (acute kidney injury) Problem: Acute (8) Tobacco abuse Problem: Chronic
[2016-08-06] MEDS: INSULIN GLARGINE,HUM.REC.ANLOG 100 UNITS/ML VIAL SC SCH (21:29)
[2016-08-06] MEDS: ENOXAPARIN SODIUM 40 MG/0.4 ML SYRG SC SCH (21:31)
[2016-08-06] MEDS: GABAPENTIN 300 MG CAPSULE PO SCH (21:31)
[2016-08-06 22:05] LABS: Microalbumin 19 mcg/L; Microalbumin/Creatinine Ratio 23 mcg/mgCR (0-30); Urine Creatinine 84 mg/dL (60-200)
[2016-08-07] MEDS: PIPERACILLIN SODIUM/TAZOBACTAM 3.375 GM in DEXTROSE 5 % IN WATER 100 ML IV SCH ×8 (00:11→19:34)
[2016-08-07] MEDS ORDERED: NORMAL SALINE 1,000 ML IV PRN (01:47)
[2016-08-07] MEDS: HYDROmorphone HCL 1 MG/ML DISP.SYRIN IV PRN ×2 (04:01→16:35)
[2016-08-07 06:06] LABS: Hematocrit 31.7 % (42.0-52.0); Hemoglobin 10.8 gm/dL (13.5-18.0); Mean Cell Volume 93.5 fl (78-100); Mean Corpuscular Hemoglobin 31.9 pg (27-31); Mean Corpuscular Hgb Conc 34.1 g/dl (32-36); Mean Platelet Volume 11.4 fl (6.0-9.5); Neutrophil # 15.6 K/mm3 (1.3-6.0); Neutrophil % 82.3 % (42-75.0); Platelet Count 315 K/mm3 (150-450); Red Blood Count 3.39 M/mm3 (4.7-6.0); Red Cell Distribution Width 12.8 % (11.5-14.0); White Blood Count 18.9 K/mm3 (4.0-10.5)
[2016-08-07 06:32] LABS: Anion Gap 15.9 mmol/L (6.8-13.8); BUN/Creatinine Ratio 26.2 (9.0-21.6); Calcium * 8.5 mg/dL (7.9-10.9); Carbon Dioxide 23.4 mmol/L (24-32.6); Estimated Creat Clear 80.2; Potassium 4.3 mmol/L (3.4-4.6); TSH * 1.822 uIU/mL (0.358-3.74)
[2016-08-07 06:34] LABS: Hemoglobin A1C 7.5 % (4.00-6.0)
[2016-08-07] MEDS: PANTOPRAZOLE SODIUM 40 MG TABLET.EC PO SCH (07:03)
[2016-08-07] MEDS: INSULIN LISPRO 100 UNITS/ML VIAL SC SCH ×3 (07:07→17:12)
[2016-08-07] MEDS: oxyCODONE HCL/ACETAMINOPHEN 1 TAB TABLET PO PRN ×4 (07:12→23:50)
[2016-08-07] MEDS ORDERED: BISACODYL 5 MG TABLET.DR PO SCH (09:00)
[2016-08-07] MEDS: GABAPENTIN 300 MG CAPSULE PO SCH ×2 (09:59→21:04)
[2016-08-07] MEDS: SACCHAROMYCES BOULARDII 250 MG CAPSULE PO SCH (09:59)
[2016-08-07] MEDS: NORMAL SALINE 1,000 ML IV PRN ×2 (11:10→19:35)
[2016-08-07] MEDS: VANCOMYCIN HCL 1.5 GM in DEXTROSE 5 % IN WATER 500 ML IV SCH ×4 (11:47→23:50)
[2016-08-07] MEDS ORDERED: BISACODYL 5 MG TABLET.DR PO PRN (16:27)
[2016-08-07] MEDS: diphenhydrAMINE HCL 50 MG/ML VIAL IV PRN (17:33)
[2016-08-07] MEDS ORDERED: VANCOMYCIN HCL 2 GM in DEXTROSE 5 % IN WATER 500 ML IV SCH ×2 (19:00)
[2016-08-07] MEDS ORDERED: METHYLPREDNISOLONE SOD SUCC/PF 40 MG/ML VIAL IV ONE (19:00)
[2016-08-07] MEDS: INSULIN GLARGINE,HUM.REC.ANLOG 100 UNITS/ML VIAL SC SCH (21:03)
[2016-08-07] MEDS: ENOXAPARIN SODIUM 40 MG/0.4 ML SYRG SC SCH (21:03)
[2016-08-07] MEDS: ACETAMINOPHEN 500 MG TABLET PO PRN (21:03)
[2016-08-07] MEDS: SENNOSIDES 8.6 MG TABLET PO SCH (21:04)
[2016-08-07] MEDS: NICOTINE 21 MG PATC TD SCH (21:05)
--- NOTE | 2016-08-07 21:25 | PN ---
Subjective - Date and Time Seen Date: 08/07/16 Time: 21:14 Subjective Narrative: feels better, pain controlled on percocet, scheduled to have MRI of foot in the afternoon. Blood sugars below 150 mg/dl. Objective - Review of Systems Generalized/Overall Review: Denies: Weakness Respiratory: Denies: Cough, Shortness of Breath Cardiac: Denies: Chest Pain, Edema - Vitals Vitals: Last Vital Signs Temp 36.5 C 08/07/16 14:24 Pulse 78 08/07/16 14:24 Resp 18 08/07/16 14:24 BP 136/74 08/07/16 14:24 Pulse Ox 94 08/07/16 14:24 - Abnormal Lab Findings Abnormal Lab Findings: Laboratory Tests 08/07/16 05:30 WBC 18.9 H D Hgb 10.8 L Hct 31.7 L Plt Count 315 08/07/16 05:30 Plasma Sodium 137 Potassium 4.3 Chloride 101 Carbon Dioxide 23.4 L BUN 27 H Creatinine 1.03 Est GFR (Non-Af Amer) 78 D Random Glucose 157 H Mean Blood Glucose 164 Hemoglobin A1c 7.5 H TSH 1.822 - Exam Constitutional: Present: Alert, Oriented x3, Cooperative, Middle aged, Obese, Looks Older than stated age Neck: Present: normal inspection, trachea midline Respiratory: Present: normal breath sounds, no accessory muscle use Cardiovascular/Chest: Present: regular rate, rhythm. Absent: tachycardia, systolic murmur Abdomen: Present: Normal bowel sounds, soft, nontender, obese Extremity: Present: other - LT lower leg swollen and tender c/w cellulitis; LT great toe - large ulcer w/ foul smelling drainage.s/p 3rd toe amputation. Assessment/Plan Plan Narrative: 1. Sepsis: Cellulitis of LT foot with ulcer and possible osteo. Blood cultures so far negative. On vancomycin and piperacillin/ tozobactam day #2. MRI pending. Dr. Moy saw pt. 2. T2DM: fairly well controlled. A1C 7.5 . 3. Tobacco abuse: 1 PPD since age 21 yrs. On nicotine patch 21mg /day. 4. No health insurance. Sign for medicaid / assisstance. 5. DVT prophylaxis : Lovenox 40 mg SQ QD.
[2016-08-08] MEDS: diphenhydrAMINE HCL 50 MG/ML VIAL IV PRN (00:46)
[2016-08-08] MEDS: NORMAL SALINE 1,000 ML IV PRN ×4 (03:34→21:29)
[2016-08-08] MEDS: PIPERACILLIN SODIUM/TAZOBACTAM 3.375 GM in DEXTROSE 5 % IN WATER 100 ML IV SCH ×6 (03:34→17:22)
[2016-08-08] MEDS: PANTOPRAZOLE SODIUM 40 MG TABLET.EC PO SCH (07:08)
[2016-08-08] MEDS: oxyCODONE HCL/ACETAMINOPHEN 1 TAB TABLET PO PRN ×4 (07:13→19:32)
[2016-08-08] MEDS: INSULIN LISPRO 100 UNITS/ML VIAL SC SCH ×3 (07:14→16:41)
--- NOTE | 2016-08-08 08:21 | CONS ---
- Reason for consultation (1) Gangrene of left foot Date of Service: 08/07/16 (2) Cellulitis of foot Date of Service: 08/07/16 (3) Diabetic foot ulcer Date of Service: 08/07/16 (4) Diabetes type 2, uncontrolled Date of Service: 08/07/16 HPI - General Date of Service: 08/07/16 Narrative: Pt was seen at my office yesterday for post-operative visit. Had been placed on additional ABX 2 days prior for increasing redness, swelling, drainage, and pain to the left foot. States that on Thursday he felt the foot was feeling better, however by Thursday morning he began having severe chills. He did not go to the ED because he knew he had an appointment with me that afternoon. Does state that he suffered a fall on his way out of his home to come to his appointment. Upon presentation to my office, he was sent immediately to the ED for admission. I was consulted for further surgical care. Exam Limitations: no limitations - History of Present Illness Timing/Duration: 24 hours, getting worse Severity: severe Associated Symptoms: fever/chills, loss of appetite, malaise, weakness Allergies/Adverse Reactions: Allergies No Known Allergies Allergy (Verified 08/06/16 17:50) Home Medications: Home Medications Medication Instructions Recorded Last Taken Sulfamethoxazole/Trimethoprim 1 tab PO BID 08/06/16 Unknown [Bactrim] - Patient's Past Medical History Patient History - Medical: Diabetes Type 2 - uncontrolled, officially diagnosed on hospital admission 07/21/16, Migraines, Other - history of osteomyelitis with gangrene left 3rd toe - see surgical hx. Patient History - Cardiac/Respiratory: Hypertension - on lopressor Patient History - Cancer: No Hx of Cancer Patient History - Surgical Procedures: Amputation - left 3rd toe amputated on 02/01, Hernia Repair Patient History - Other: None - Family History Mother Family History - Medical: No pertinent hx Family History - Cardiac/Respiratory: No pertinent hx Family History - Cancer: No pertinent family hx Father Family History - Medical: Diabetes Type 2 Family History - Cardiac/Respiratory: No pertinent hx Family History - Cancer: No pertinent family hx - Social History Living Situations: alone Abuse History: No History of abuse Psych History: No pertinent hx Smoking Status: Current every day smoker Have you smoked in the past 12 months: Yes Do you dip or chew tobacco: No Patient requests Smoking Cessation Consult: No Initiate information on Smoking Cessation: No Alcohol Use: none Drug Use: none - Immunizations Immunizations Up to Date: No Hx Pneumococcal Vaccination: No History of Influenza Vaccine: No Procedures EXCISION OF LEFT FOOT SKIN, EXTERNAL APPROACH (07/21/16) Medications - Medications Current Medications: Current Medications Acetaminophen (Tylenol) 1,000 mg PO Q6H PRN PRN Reason: Pain/Fever Stop: 09/06/16 20:48 Last Admin: 08/07/16 21:03 Dose: 1,000 mg Diphenhydramine HCl (Benadryl) 25 mg IV Q6H PRN PRN Reason: Itching Stop: 09/06/16 16:25 Last Admin: 08/08/16 00:46 Dose: 25 mg Enoxaparin Sodium (Lovenox) 40 mg SC Q24H [facility] Stop: 09/05/16 21:01 Last Admin: 08/07/16 21:03 Dose: 40 mg Gabapentin (Neurontin) 300 mg PO BID [facility] Stop: 09/05/16 21:01 Last Admin: 08/07/16 21:04 Dose: 300 mg Hydromorphone HCl (Dilaudid) 0.5 mg IV Q1H PRN PRN Reason: Severe Pain Stop: 09/05/16 19:39 Last Admin: 08/07/16 16:35 Dose: 0.5 mg Sodium Chloride (Sodium Chloride 0.9%) 1,000 mls @ 130 mls/hr IV .Q7H42M PRN PRN Reason: HYDRATION Last Infusion: 08/06/16 17:23 Dose: Infused Sodium Chloride (Sodium Chloride 0.9%) 1,000 mls @ 130 mls/hr IV .Q7H42M PRN PRN Reason: HYDRATION Last Infusion: 08/07/16 10:21 Dose: Infused Vancomycin HCl 1.5 gm/ (Dextrose/Water) 500 mls @ 140 mls/hr IV Q12H [facility] Stop: 09/06/16 10:01 Last Infusion: 08/08/16 03:30 Dose: Infused Sodium Chloride (Sodium Chloride 0.9%) 1,000 mls @ 125 mls/hr IV .Q8H PRN PRN Reason: HYDRATION Stop: 09/06/16 11:05 Last Admin: 08/08/16 03:34 Dose: 125 mls/hr Piperacillin Sod/Tazobactam (Sod 3.375 gm/ Dextrose/Water) 100 mls @ 25 mls/hr IV Q8H [facility] PRN Reason: Protocol Stop: 09/06/16 18:01 Last Admin: 08/08/16 03:34 Dose: 25 mls/hr Insulin Glargine (Lantus) 12 units SC HS [facility] Stop: 09/05/16 21:01 Last Admin: 08/07/16 21:03 Dose: 12 units Insulin Human Lispro (Humalog) 0 units SC ACINS [facility] PRN Reason: Protocol Stop: 09/06/16 07:01 Last Admin: 08/08/16 07:14 Dose: 4 units Nicotine (Nicoderm) 21 mg TD Q24H [facility] Stop: 09/05/16 21:01 Last Admin: 08/07/16 21:05 Dose: 21 mg Oxycodone/Acetaminophen (Percocet 5 Mg/325 Mg) 2 tab PO Q4H PRN PRN Reason: Moderate-Severe Pain Stop: 09/05/16 19:38 Last Admin: 08/08/16 07:13 Dose: 2 tab Pantoprazole Sodium (Protonix) 40 mg PO DAILY@0700 [facility] Stop: 09/06/16 07:01 Last Admin: 08/08/16 07:08 Dose: 40 mg Saccharomyces Boulardii (Florastor) 250 mg PO DAILY [facility] Stop: 09/05/16 17:31 Last Admin: 08/07/16 09:59 Dose: 250 mg Senna (Senokot) 17.2 mg PO BID [facility] Stop: 09/06/16 21:01 Last Admin: 08/07/16 21:04 Dose: 17.2 mg Review of Systems - Review of Systems Generalized/Overall Review: Present: Chills, Malaise, Fatigue Musculoskeletal: Present: Other - left foot pain Skin: Present: Other - ulceration, redness, gangrenous skin left foot Physical Examination - Exam Vital Signs: Vital Signs - Last Taken 08/07/2016 - Temp 36.5 C Pulse 78 Respirations 18 BP 136/74 Constitutional: Present: Alert, Cooperative, Acute distress Peripheral Pulses: dorsalis-pedis (L): 1+ Extremity: Present: lower extremity edema - left lower leg/foot, leg pain - left lower leg/foot Skin Exam: Present: other - Gangrenous changes extending from the amputation site of the 3rd toe left foot medially to the dorsum of the great toe. Fluctuant on palpation, however no crepitation. Upon incision of area, no gas bubbles but copious amounts of purulence expressed. Tunnel coursing through first interspace to plantar foot, also with purulence. Tissues are duran-black. Severe malodor. Painful to touch in otherwise insensate foot. Neurologic: Present: sensory deficit Appearance: Present: disheveled Eye contact: Present: cooperative - Results and Findings: Lab/Microbiology results last 24 hrs: Culture 08/06/16 17:50 - Final Nares MRSA Negative 08/06/16 20:12 Wound Culture - Preliminary Toe - Left Ruling Out Pathogen - Assessments/Findings (1) Gangrene of left foot Diagnosis(s): Verbal consent obtained from patient for bedside incision and drainage. Foot prepped with betadine solution. A #15 blade was utilized to make a skin to bone incision over the dorsal lateral aspect of the great toe directly over gangrenous tissue. Medial-lateral compression applied expressing copious amounts of foul smelling purulent drainage. A small tenotomy scissor was then utilized to spread tissues in the first interspace to gain access to abscess noted on MRI. Compression again applied and more purulence expressed. The area was then irrigated with copious sterile normal saline. The incision was packed with dry gauze and the foot dressed with dry gauze, sharmila, and an ISHA bandage - no compression applied. Pt tolerated procedure fair with some pain on compression of the foot. Discussed with pt his options for further care to include extensive surgical debridement followed by regional intermodal truck driver wound care and IV ABX vs trans-metatarsal amputation. I am not optimistic about his outcomes with debridement and IV ABX therapy. Recommend amputation. Pt would like to discuss with his family and will come to a decision by morning. Problem: Acute (2) Cellulitis of foot Diagnosis(s): Continue IV ABX. Problem: Acute (3) Diabetic foot ulcer Diagnosis(s): New dressing applied. Problem: Acute Qualifiers: Diabetic foot ulcer location: unspecified part of foot Diabetes mellitus type: type 2 Laterality: left Non-pressure ulcer stage: unspecified non- pressure ulcer stage Qualified Code(s): E11.621 - Type 2 diabetes mellitus with foot ulcer; L97.529 - Non-pressure chronic ulcer of other part of left foot with unspecified severity (4) Diabetes type 2, uncontrolled Diagnosis(s): Continue care per PCP. Problem: Chronic Qualifiers: Diabetes mellitus complication status: with skin complications Diabetes mellitus complication detail: with foot ulcer Diabetes mellitus regional intermodal truck driver insulin use: without regional intermodal truck driver use Qualified Code(s): E11.621 - Type 2 diabetes mellitus with foot ulcer; E11.65 - Type 2 diabetes mellitus with hyperglycemia; L97.509 - Non-pressure chronic ulcer of other part of unspecified foot with unspecified severity
--- NOTE | 2016-08-08 08:33 | PN ---
Subjective - Date and Time Seen Date: 08/08/16 Time: 07:25 Subjective Narrative: Pt evaluated at bedside resting. States that his foot is still painful, but has improved slightly. No improvement in appetite. No chills today. Has not had a chance to discuss options with family as he fell asleep yesterday before calling them. Objective - Review of Systems Generalized/Overall Review: Reports: Malaise Musculoskeletal Complaints: Reports: Other - left foot pain Neurological: Reports: Numbness Skin: Reports: Other - left foot gangrene - Vitals Vitals: Last Vital Signs Temp 36.3 C L 08/08/16 07:00 Pulse 75 08/08/16 07:00 Resp 18 08/08/16 07:00 BP 148/82 08/08/16 07:00 Pulse Ox 96 08/08/16 07:00 - Exam Exam Narrative: MRI showing abscess to dorsal and plantar left foot around area of 1st and 2nd MtPJ. Constitutional: Present: Alert, Oriented x3, Cooperative Extremity: Present: lower extremity edema - left lower leg/foot, leg pain - left lower leg/foot Skin Exam: Present: other - Gangrenous changes extending from the amputation site of the 3rd toe left foot medially to the dorsum of the great toe. Fluctuant on palpation, however no crepitation. Incised area from I&D still with copious amounts of purulence expressed. Tunnel coursing through first interspace to plantar foot, also with purulence. Tissues are duran-black. Severe malodor. Painful to touch in otherwise insensate foot. Eye contact: Present: cooperative Assessment/Plan - Problems/Diagnosis (1) Gangrene of left foot Problem: Acute Narrative: Discussed again with pt his options for care. Recommend TMA left foot. Will place drain after surgery. Will continue with IV ABX. Pt is in agreement with this plan. Will plan to go to OR this afternoon for trans-metatarsal amputation left foot. NPO now. Consent to be obtained. (2) Cellulitis of foot Problem: Acute Narrative: Continue IV ABX (3) Diabetic foot ulcer Problem: Acute Qualifiers: Diabetic foot ulcer location: unspecified part of foot Diabetes mellitus type: type 2 Laterality: left Non-pressure ulcer stage: unspecified non- pressure ulcer stage Qualified Code(s): E11.621 - Type 2 diabetes mellitus with foot ulcer; L97.529 - Non-pressure chronic ulcer of other part of left foot with unspecified severity Narrative: Dressing changed today. (4) Diabetes type 2, uncontrolled Problem: Chronic Qualifiers: Diabetes mellitus complication status: with skin complications Diabetes mellitus complication detail: with foot ulcer Diabetes mellitus chcf insulin use: without chcf use Qualified Code(s): E11.621 - Type 2 diabetes mellitus with foot ulcer; E11.65 - Type 2 diabetes mellitus with hyperglycemia; L97.509 - Non-pressure chronic ulcer of other part of unspecified foot with unspecified severity Narrative: Care per PCP.
[2016-08-08] MEDS: PSYLLIUM SEED 1 PACKET PACKET PO SCH (09:50)
[2016-08-08] MEDS: SENNOSIDES 8.6 MG TABLET PO SCH ×2 (09:50→20:25)
[2016-08-08] MEDS: SACCHAROMYCES BOULARDII 250 MG CAPSULE PO SCH (09:50)
[2016-08-08] MEDS: VANCOMYCIN HCL 1.5 GM in DEXTROSE 5 % IN WATER 500 ML IV SCH ×4 (09:51→21:26)
[2016-08-08] MEDS: GABAPENTIN 300 MG CAPSULE PO SCH ×2 (09:51→20:25)
[2016-08-08] MEDS ORDERED: NORMAL SALINE 1,000 ML IV ONE (12:50)
[2016-08-08] MEDS ORDERED: BUPIVACAINE HCL 50 ML VIAL IJ ONE ×2 (13:15)
[2016-08-08] MEDS ORDERED: LIDOCAINE HCL 50 ML VIAL IJ ONE (13:15)
[2016-08-08] MEDS ORDERED: BACITRACIN 50,000 UNITS VIAL IR ONE (13:15)
[2016-08-08] MEDS: HYDROmorphone HCL 1 MG/ML DISP.SYRIN IV PRN ×2 (16:43→21:27)
[2016-08-08] MEDS: INSULIN GLARGINE,HUM.REC.ANLOG 100 UNITS/ML VIAL SC SCH (20:24)
[2016-08-08] MEDS: NICOTINE 21 MG PATC TD SCH (20:24)
[2016-08-08] MEDS: ENOXAPARIN SODIUM 40 MG/0.4 ML SYRG SC SCH (20:24)
--- NOTE | 2016-08-08 22:56 | PN ---
Subjective - Date and Time Seen Date: 08/08/16 Time: 22:56 Subjective Narrative: pain controlled with percocet post op. no n/v. denies needs. Objective - Review of Systems Generalized/Overall Review: Reports: Fatigue EENTM: Reports: No Symptoms Reported Respiratory: Reports: No Symptoms Reported Cardiac: Reports: No Symptoms Reported Abdominal: Reports: No Symptoms Reported Genitourinary Symptoms: Reports: No Symptoms Reported Musculoskeletal Complaints: Reports: Joint Pain, Muscle Pain Neurological: Reports: No Symptoms Reported Skin: Reports: No Symptoms Reported Endocrine: Reports: No Symptoms Reported Misc: All systems neg except as marked - Vitals Vitals: Last Vital Signs Temp 36.9 C 08/08/16 18:40 Pulse 82 08/08/16 20:49 Resp 16 08/08/16 20:49 BP 154/90 08/08/16 20:49 Pulse Ox 97 08/08/16 20:49 - Exam Constitutional: Present: Cooperative, No distress ENT Exam: Present: hearing grossly normal Neck: Present: full range of motion, supple Breasts: Present: Exam deferred Respiratory: Present: lungs clear, normal breath sounds, no respiratory distress Cardiovascular/Chest: Present: normal peripheral pulses, regular rate, rhythm, no JVD Abdomen: Present: soft, nontender, nondistended /Rectal: Present: Exam deferred Extremity: Present: no calf tenderness, leg pain - left leg - surgical drsg to partially amputed foot intact. Skin Exam: Present: normal color, warm/dry, no cyanosis Assessment/Plan Plan Narrative: 1. Sepsis: - left foot cellulitis with ulcer, mri neg for osteo. - Now post op partial foot amputation by dr. gee - Vancomycin and zosyn - Day #3 2. T2DM: - blood sugar control is improving - hgbA1C - 7.5 - Accu checks AC with sliding scale PRN 3. Tobacco abuse: - Smoked 1 PPD x 21 yrs. - Nicoderm patch 21 mg./ day 4. No health insurance. - currently applying for aid / medicaid. 5. DVT prophylaxis : - Lovenox 40 mg SQ QD. - Problems/Diagnosis (1) Severe sepsis Problem: Acute (2) Diabetic foot ulcer Problem: Acute Qualifiers: Diabetic foot ulcer location: unspecified part of foot Diabetes mellitus type: type 2 Laterality: left Non-pressure ulcer stage: unspecified non- pressure ulcer stage Qualified Code(s): E11.621 - Type 2 diabetes mellitus with foot ulcer; L97.529 - Non-pressure chronic ulcer of other part of left foot with unspecified severity (3) Cellulitis of foot Problem: Acute (4) Osteomyelitis Problem: Suspected Qualifiers: Osteomyelitis type: unspecified type Osteomyelitis location: foot Laterality: left Qualified Code(s): M86.9 - Osteomyelitis, unspecified (5) Diabetes type 2, uncontrolled Problem: Chronic Qualifiers: Diabetes mellitus complication status: with skin complications Diabetes mellitus complication detail: with foot ulcer Diabetes mellitus half-way insulin use: without termination clerk use Qualified Code(s): E11.621 - Type 2 diabetes mellitus with foot ulcer; E11.65 - Type 2 diabetes mellitus with hyperglycemia; L97.509 - Non-pressure chronic ulcer of other part of unspecified foot with unspecified severity (6) HTN (hypertension) Problem: Chronic Qualifiers: Hypertension type: essential hypertension Qualified Code(s): I10 - Essential (primary) hypertension (7) JOSE ELIAS (acute kidney injury) Problem: Acute (8) Tobacco abuse Problem: Chronic
[2016-08-09] MEDS: oxyCODONE HCL/ACETAMINOPHEN 1 TAB TABLET PO PRN ×5 (01:02→21:07)
[2016-08-09] MEDS: PIPERACILLIN SODIUM/TAZOBACTAM 3.375 GM in DEXTROSE 5 % IN WATER 100 ML IV SCH ×6 (01:03→18:29)
[2016-08-09] MEDS: HYDROmorphone HCL 1 MG/ML DISP.SYRIN IV PRN ×2 (03:52→10:41)
[2016-08-09] MEDS: diphenhydrAMINE HCL 50 MG/ML VIAL IV PRN (03:52)
[2016-08-09] MEDS: INSULIN LISPRO 100 UNITS/ML VIAL SC SCH ×3 (06:36→16:43)
[2016-08-09] MEDS: PANTOPRAZOLE SODIUM 40 MG TABLET.EC PO SCH (06:36)
[2016-08-09] MEDS: PSYLLIUM SEED 1 PACKET PACKET PO SCH (09:00)
[2016-08-09] MEDS: SENNOSIDES 8.6 MG TABLET PO SCH ×2 (09:00→20:58)
[2016-08-09] MEDS: GABAPENTIN 300 MG CAPSULE PO SCH ×2 (09:00→21:00)
[2016-08-09] MEDS: SACCHAROMYCES BOULARDII 250 MG CAPSULE PO SCH ×3 (09:00→20:59)
[2016-08-09] MEDS: NORMAL SALINE 1,000 ML IV PRN (09:03)
[2016-08-09] MEDS ORDERED: VANCOMYCIN HCL LEVEL XX ONE (09:30)
[2016-08-09] MEDS: VANCOMYCIN HCL 1.5 GM in DEXTROSE 5 % IN WATER 500 ML IV SCH ×4 (10:33→21:54)
--- NOTE | 2016-08-09 11:13 | PN ---
<Faustino Buchanan - Last Filed: 08/11/16 14:05> Subjective Subjective Narrative: feels better, Objective - Vitals Vitals: Last Vital Signs Temp 36.8 C 08/11/16 10:00 Pulse 70 08/11/16 10:00 Resp 18 08/11/16 10:00 BP 155/86 08/11/16 10:00 Pulse Ox 92 08/11/16 10:00 <Becki Moy - Last Filed: 08/12/16 15:25> Subjective - Date and Time Seen Date: 08/09/16 Time: 11:13 Subjective Narrative: Pt evaluate at bedside resting. Relates pain to his left foot following surgery yesterday and sleepiness as he did not get much rest through the night secondary to his pain. He otherwise denies any further c/o. Has been compliant with keeping dressing CDI. Has not applied any weight to surgical foot. Objective - Review of Systems Generalized/Overall Review: Reports: Fatigue Musculoskeletal Complaints: Reports: Other - left foot pain Neurological: Reports: Numbness - Vitals Vitals: Last Vital Signs Temp 36.8 C 08/09/16 10:00 Pulse 92 08/09/16 10:00 Resp 18 08/09/16 10:00 BP 176/106 08/09/16 10:00 Pulse Ox 94 08/09/16 10:00 - Exam Constitutional: Present: Alert, Oriented x3, No distress Extremity: Present: other - left foot pain Skin Exam: Present: other - Dressing to left foot CDI with moderate bloody drainage from surgery. Incision at amputation site left foot well approximated with sutures intact. Minimal bloody drainage. Drain placed to plantar surface of foot still with active bloody drainage. Incision to dorsal foot remains open with packing in place. Minimal bloody drainage from this site, pain most notable to this area. Erythema near resolved and now localized to dorsum of foot. Neurologic: Present: sensory deficit Appearance: Present: appropriate appearance Assessment/Plan - Problems/Diagnosis (1) Gangrene of left foot Problem: Acute Narrative: POD #1 s/o left transmetatarsal amputation. Dorsal incision re-packed with 1/2 " Iodoform packing gauze. New DSD applied. Keep CDI. Remain NWB left foot with walker assist. (2) Cellulitis of foot Problem: Acute Narrative: Continue IV ABX. (3) Diabetic foot ulcer Problem: Acute Qualifiers: Diabetic foot ulcer location: unspecified part of foot Diabetes mellitus type: type 2 Laterality: left Non-pressure ulcer stage: unspecified non- pressure ulcer stage Qualified Code(s): E11.621 - Type 2 diabetes mellitus with foot ulcer; L97.529 - Non-pressure chronic ulcer of other part of left foot with unspecified severity Narrative: New dressing applied left foot. Keep CDI. (4) Diabetes type 2, uncontrolled Problem: Chronic Qualifiers: Diabetes mellitus complication status: with skin complications Diabetes mellitus complication detail: with foot ulcer Diabetes mellitus detention insulin use: without detention use Qualified Code(s): E11.621 - Type 2 diabetes mellitus with foot ulcer; E11.65 - Type 2 diabetes mellitus with hyperglycemia; L97.509 - Non-pressure chronic ulcer of other part of unspecified foot with unspecified severity Narrative: Continue care per PCP
[2016-08-09] MEDS ORDERED: NORMAL SALINE 1,000 ML IV PRN (13:58)
--- NOTE | 2016-08-09 14:05 | PN ---
Subjective - Date and Time Seen Date: 08/09/16 Time: 13:55 Subjective Narrative: Doing fairly well, pain under control. Denies any chest pain/shortness of breath. Has occasional cough. Objective - Review of Systems Generalized/Overall Review: Denies: Weakness, Chills, Fever Respiratory: Reports: Cough. Denies: Shortness of Breath, Orthopnea Cardiac: Denies: Chest Pain, Edema - Vitals Vitals: Vital Signs Temp 36.8 C 08/09/16 10:00 Pulse 92 08/09/16 10:00 Resp 18 08/09/16 10:00 BP 176/106 08/09/16 10:00 Pulse Ox 94 08/09/16 10:00 - Exam Constitutional: Present: Middle aged, Obese, Looks Older than stated age ENT Exam: Present: hearing grossly normal, moist mucous membranes Respiratory: Present: no accessory muscle use, rhonchi - bilaterally Cardiovascular/Chest: Present: regular rate, rhythm. Absent: tachycardia Abdomen: Present: Normal bowel sounds, soft, nontender, nondistended Extremity: Present: other - LT lower leg cellulitis present. S/P transmetatarsal amputation with drains. Skin Exam: Present: normal color, warm/dry Assessment/Plan Plan Narrative: 1. S/P Transmetatarsal amputation of LT foot : POD #1. due to Cellulitis of LT foot and abscess formation on dorsal and plantar surface of foot. Blood cultures so far negative. On vancomycin and piperacillin/ tozobactam day # 4. Patient had presented with sepsis. Patient will be on IV antibiotics for approximately 7 days and oral antibiotics for 3-4 weeks [discussed with ]. [facility] 2. T2DM: fairly well controlled. A1C 7.5. On Lantus 12 units at bedtime with sliding scale. 3. Tobacco abuse: 1 PPD since age 21 yrs. On nicotine patch 21mg /day. 4. No health insurance. Sign for medicaid / assisstance. 5. DVT prophylaxis : Lovenox 40 mg SQ QD. 6. Neuropathy: Gabapentin 300 mg in a.m. and increase gabapentin to 600 mg in p.m. 7. Dehydration: Decrease IV fluids to 50 mL per hour and check labs on 08/10/2016.
[2016-08-09] MEDS: NICOTINE 21 MG PATC TD SCH (20:55)
[2016-08-09] MEDS: ENOXAPARIN SODIUM 40 MG/0.4 ML SYRG SC SCH (21:00)
[2016-08-09] MEDS: INSULIN GLARGINE,HUM.REC.ANLOG 100 UNITS/ML VIAL SC SCH (21:02)
[2016-08-10] MEDS: PIPERACILLIN SODIUM/TAZOBACTAM 3.375 GM in DEXTROSE 5 % IN WATER 100 ML IV SCH ×6 (01:41→17:09)
[2016-08-10 05:31] LABS: Hematocrit 32.6 % (42.0-52.0); Hemoglobin 11.2 gm/dL (13.5-18.0); Mean Cell Volume 92.1 fl (78-100); Mean Corpuscular Hemoglobin 31.6 pg (27-31); Mean Corpuscular Hgb Conc 34.4 g/dl (32-36); Mean Platelet Volume 10.8 fl (6.0-9.5); Neutrophil # 10.4 K/mm3 (1.3-6.0); Neutrophil % 75.8 % (42-75.0); Platelet Count 407 K/mm3 (150-450); Red Blood Count 3.54 M/mm3 (4.7-6.0); Red Cell Distribution Width 12.5 % (11.5-14.0); White Blood Count 13.7 K/mm3 (4.0-10.5)
[2016-08-10] MEDS: oxyCODONE HCL/ACETAMINOPHEN 1 TAB TABLET PO PRN ×4 (05:34→23:32)
[2016-08-10 05:47] LABS: Albumin * 1.9 gm/dl (3.4-5.0); Anion Gap 16.1 mmol/L (6.8-13.8); BUN/Creatinine Ratio 10.8 (9.0-21.6); Bilirubin, Total 0.5 mg/dL (0.0-1.1); Ca. Corrected For Albumin 10.3 mg/dL (8.4-10.2); Calcium * 8.9 mg/dL (7.9-10.9); Carbon Dioxide 25.6 mmol/L (24-32.6); Potassium 3.7 mmol/L (3.4-4.6); Total Protein 7.1 gm/dL (6.2-8.2)
[2016-08-10] MEDS: INSULIN LISPRO 100 UNITS/ML VIAL SC SCH ×3 (06:50→16:54)
[2016-08-10] MEDS: PANTOPRAZOLE SODIUM 40 MG TABLET.EC PO SCH (06:50)
--- NOTE | 2016-08-10 08:26 | PN ---
Subjective - Date and Time Seen Date: 08/10/16 Time: 08:26 Subjective Narrative: Pt evaluated at bedside resting. Relates that his foot is feeling much better today with improvement in his pain. Was able to get some rest through the night. Objective - Review of Systems Musculoskeletal Complaints: Reports: Other - left foot pain Neurological: Reports: Numbness - Vitals Vitals: Last Vital Signs Temp 37 C 08/10/16 06:44 Pulse 82 08/10/16 06:44 Resp 20 08/10/16 06:44 BP 148/75 08/10/16 06:44 Pulse Ox 94 08/10/16 06:44 - Abnormal Lab Findings Abnormal Lab Findings: Abnormal Lab Results 08/10/16 08/10/16 Range/Units 05:00 05:00 WBC 13.7 H D (4.0-10.5) K/mm3 RBC 3.54 L (4.7-6.0) M/mm3 Hgb 11.2 L (13.5-18.0) gm/dL Hct 32.6 L (42.0-52.0) % MCH 31.6 H (27-31) pg MPV 10.8 H (6.0-9.5) fl Immature Gran % (Auto) 1.20 H (0.001-0.429) % Immature Gran # (Auto) 0.17 H (0.000-0.0310) K/mm3 Neutrophils % 75.8 H (42-75.0) % Lymphocytes % 14.1 L (20-51) % Neutrophils # 10.4 H (1.3-6.0) K/mm3 Anion Gap 16.1 H (6.8-13.8) mmol/L Random Glucose 171 H (70-110) mg/dL Calcium Adj for Albumin 10.3 H (8.4-10.2) mg/dL Albumin 1.9 L (3.4-5.0) gm/dl - Exam Constitutional: Present: Alert, Oriented x3, Cooperative, No distress Extremity: Present: other - left foot pain Skin Exam: Present: other - Dressing to left foot CDI with moderate bloody drainage from surgery. Incision at amputation site left foot well approximated with sutures intact. Minimal bloody drainage. Drain placed to plantar surface of foot still with active bloody drainage - decreasing. Incision to dorsal foot remains open with packing in place. Minimal bloody drainage from this site , pain most notable to this area. Erythema continues to improve. Neurologic: Present: sensory deficit Appearance: Present: appropriate appearance Assessment/Plan - Problems/Diagnosis (1) Gangrene of left foot Problem: Acute Narrative: POD #2 s/p transmetatarsal amputation left foot. Incision to dorsal foot re- packed with 1/2" Iodoform packing gauze. New DSD applied. Keep CDI. Remain NWB left foot with walker assist. Consider removal of drain tomorrow if drainage stops. (2) Cellulitis of foot Problem: Acute Narrative: Continue IV ABX. (3) Diabetic foot ulcer Problem: Acute Qualifiers: Diabetic foot ulcer location: unspecified part of foot Diabetes mellitus type: type 2 Laterality: left Non-pressure ulcer stage: unspecified non- pressure ulcer stage Qualified Code(s): E11.621 - Type 2 diabetes mellitus with foot ulcer; L97.529 - Non-pressure chronic ulcer of other part of left foot with unspecified severity Narrative: Dressing change today. (4) Diabetes type 2, uncontrolled Problem: Chronic Qualifiers: Diabetes mellitus complication status: with skin complications Diabetes mellitus complication detail: with foot ulcer Diabetes mellitus intermediate designer insulin use: without intermediate designer use Qualified Code(s): E11.621 - Type 2 diabetes mellitus with foot ulcer; E11.65 - Type 2 diabetes mellitus with hyperglycemia; L97.509 - Non-pressure chronic ulcer of other part of unspecified foot with unspecified severity Narrative: Care per PCP.
[2016-08-10] MEDS: GABAPENTIN 300 MG CAPSULE PO SCH ×2 (09:58→20:45)
[2016-08-10] MEDS: SACCHAROMYCES BOULARDII 250 MG CAPSULE PO SCH ×2 (09:58→20:46)
[2016-08-10] MEDS: PSYLLIUM SEED 1 PACKET PACKET PO SCH (09:58)
[2016-08-10] MEDS: SENNOSIDES 8.6 MG TABLET PO SCH ×2 (09:58→20:47)
[2016-08-10] MEDS: VANCOMYCIN HCL 1.5 GM in DEXTROSE 5 % IN WATER 500 ML IV SCH ×4 (10:03→23:23)
--- NOTE | 2016-08-10 10:25 | PN ---
Subjective - Date and Time Seen Date: 08/10/16 Time: 10:25 Subjective Narrative: Cough has improved after using Cornet every 2 hours while awake. Still coming to terms of having his foot amputated. Patient states he may feel depressed after getting discharged. Has not tried crutches; has been ambulating with walker. Objective - Review of Systems Generalized/Overall Review: Denies: Weakness, Chills, Fever - Vitals Vitals: Vital Signs Temp 37 C 08/10/16 06:44 Pulse 82 08/10/16 06:44 Resp 20 08/10/16 06:44 BP 148/75 08/10/16 06:44 Pulse Ox 94 08/10/16 06:44 - Abnormal Lab Findings Abnormal Lab Findings: Abnormal Lab Results 08/10/16 08/10/16 Range/Units 05:00 05:00 WBC 13.7 H D (4.0-10.5) K/mm3 RBC 3.54 L (4.7-6.0) M/mm3 Hgb 11.2 L (13.5-18.0) gm/dL Hct 32.6 L (42.0-52.0) % MCH 31.6 H (27-31) pg MPV 10.8 H (6.0-9.5) fl Immature Gran % (Auto) 1.20 H (0.001-0.429) % Immature Gran # (Auto) 0.17 H (0.000-0.0310) K/mm3 Neutrophils % 75.8 H (42-75.0) % Lymphocytes % 14.1 L (20-51) % Neutrophils # 10.4 H (1.3-6.0) K/mm3 Anion Gap 16.1 H (6.8-13.8) mmol/L Random Glucose 171 H (70-110) mg/dL Calcium Adj for Albumin 10.3 H (8.4-10.2) mg/dL Albumin 1.9 L (3.4-5.0) gm/dl - Exam Constitutional: Present: Middle aged, Obese, Looks Older than stated age - in NAD ENT Exam: Present: hearing grossly normal, moist mucous membranes Respiratory: Present: normal breath sounds. Absent: no accessory muscle use, wheezing Cardiovascular/Chest: Present: regular rate, rhythm. Absent: tachycardia Abdomen: Present: Normal bowel sounds, soft, obese Extremity: Present: other - LT lower leg cellulitis presentgradually improving. Assessment/Plan Plan Narrative: 1. S/P Transmetatarsal amputation of LT foot : POD #2 due to Cellulitis of LT foot and abscess formation on dorsal and plantar surface of foot. Blood cultures so far negative. On vancomycin and piperacillin/ tozobactam day # 5. Patient had presented with sepsis. Patient will be on IV antibiotics for approximately 7 days and oral antibiotics for 3-4 weeks [discussed with ]. Lonny. On oxycodone/acetaminophen 2 tablets Q4H for pain. 2. T2DM: fairly well controlled. A1C 7.5. On Lantus 12 units at bedtime with sliding scale. 3. Tobacco abuse: 1 PPD since age 21 yrs. On nicotine patch 21mg /day. 4. No health insurance. Sign for medicaid / assisstance. 5. DVT prophylaxis : Lovenox 40 mg SQ QD. 6. Neuropathy: Gabapentin 300 mg in a.m. and increase gabapentin to 600 mg in p.m.
[2016-08-10] MEDS: INSULIN GLARGINE,HUM.REC.ANLOG 100 UNITS/ML VIAL SC SCH (20:43)
[2016-08-10] MEDS: ENOXAPARIN SODIUM 40 MG/0.4 ML SYRG SC SCH (20:44)
[2016-08-10] MEDS: NICOTINE 21 MG PATC TD SCH (20:47)
[2016-08-11] MEDS: PIPERACILLIN SODIUM/TAZOBACTAM 3.375 GM in DEXTROSE 5 % IN WATER 100 ML IV SCH ×6 (02:05→17:03)
[2016-08-11] MEDS: METOPROLOL TARTRATE 25 MG TABLET PO SCH ×3 (02:34→20:06)
--- NOTE | 2016-08-11 06:07 | PN ---
Subjective - Date and Time Seen Date: 08/11/16 Time: 06:04 Subjective Narrative: using percocet for pain. no n/v. refused to work with PT yesterday. NWB left leg Objective - Review of Systems Generalized/Overall Review: Reports: No Symptoms Reported EENTM: Reports: No Symptoms Reported Respiratory: Reports: No Symptoms Reported Cardiac: Reports: No Symptoms Reported Abdominal: Reports: No Symptoms Reported Genitourinary Symptoms: Reports: No Symptoms Reported Musculoskeletal Complaints: Reports: Joint Pain Neurological: Reports: No Symptoms Reported Skin: Reports: No Symptoms Reported Endocrine: Reports: No Symptoms Reported Misc: All systems neg except as marked - Vitals Vitals: Last Vital Signs Temp 36.5 C 08/11/16 02:10 Pulse 85 08/11/16 02:34 Resp 19 08/11/16 02:10 BP 176/101 08/11/16 02:34 Pulse Ox 95 08/11/16 02:10 - Abnormal Lab Findings Abnormal Lab Findings: Abnormal Lab Results 08/10/16 Range/Units 05:00 Anion Gap 16.1 H (6.8-13.8) mmol/L Random Glucose 171 H (70-110) mg/dL Calcium Adj for Albumin 10.3 H (8.4-10.2) mg/dL Albumin 1.9 L (3.4-5.0) gm/dl - Exam Constitutional: Present: Alert, Cooperative, No distress ENT Exam: Present: hearing grossly normal Neck: Present: full range of motion, supple Breasts: Present: Exam deferred Respiratory: Present: lungs clear, normal breath sounds Cardiovascular/Chest: Present: normal peripheral pulses, regular rate, rhythm Abdomen: Present: soft, nontender, nondistended Extremity: Present: no calf tenderness, leg pain - left leg Skin Exam: Present: normal color, warm/dry, no cyanosis Assessment/Plan Plan Narrative: 1. Sepsis: - left foot cellulitis with ulcer, mri neg for osteo. - post op partial foot amputation by dr. gee - Barbra #3 - encourage pt to work with PT/OT - Vancomycin and zosyn iv 2. T2DM: - hgbA1C - 7.5 - Accu checks AC with sliding scale PRN 3. Tobacco abuse: - Smoked 1 PPD x 21 yrs. - Nicoderm patch 21 mg./ day 4. No health insurance. - currently applying for aid / medicaid. 5. DVT prophylaxis : - Lovenox 40 mg SQ QD. - Problems/Diagnosis (1) Severe sepsis Problem: Acute (2) Diabetic foot ulcer Problem: Acute Qualifiers: Diabetic foot ulcer location: unspecified part of foot Diabetes mellitus type: type 2 Laterality: left Non-pressure ulcer stage: unspecified non- pressure ulcer stage Qualified Code(s): E11.621 - Type 2 diabetes mellitus with foot ulcer; L97.529 - Non-pressure chronic ulcer of other part of left foot with unspecified severity (3) Cellulitis of foot Problem: Acute (4) Osteomyelitis Problem: Suspected Qualifiers: Osteomyelitis type: unspecified type Osteomyelitis location: foot Laterality: left Qualified Code(s): M86.9 - Osteomyelitis, unspecified (5) Diabetes type 2, uncontrolled Problem: Chronic Qualifiers: Diabetes mellitus complication status: with skin complications Diabetes mellitus complication detail: with foot ulcer Diabetes mellitus intermediate accountant insulin use: without senior care use Qualified Code(s): E11.621 - Type 2 diabetes mellitus with foot ulcer; E11.65 - Type 2 diabetes mellitus with hyperglycemia; L97.509 - Non-pressure chronic ulcer of other part of unspecified foot with unspecified severity (6) HTN (hypertension) Problem: Chronic Qualifiers: Hypertension type: essential hypertension Qualified Code(s): I10 - Essential (primary) hypertension (7) JOSE ELIAS (acute kidney injury) Problem: Acute (8) Tobacco abuse Problem: Chronic
[2016-08-11] MEDS: PANTOPRAZOLE SODIUM 40 MG TABLET.EC PO SCH (06:58)
[2016-08-11] MEDS: oxyCODONE HCL/ACETAMINOPHEN 1 TAB TABLET PO PRN (06:59)
[2016-08-11] MEDS: INSULIN LISPRO 100 UNITS/ML VIAL SC SCH ×3 (07:27→17:01)
[2016-08-11] MEDS: GABAPENTIN 300 MG CAPSULE PO SCH ×2 (09:08→20:06)
[2016-08-11] MEDS: SACCHAROMYCES BOULARDII 250 MG CAPSULE PO SCH ×2 (09:08→20:05)
[2016-08-11] MEDS: SENNOSIDES 8.6 MG TABLET PO SCH ×2 (09:08→20:08)
[2016-08-11] MEDS: PSYLLIUM SEED 1 PACKET PACKET PO SCH (09:08)
[2016-08-11] MEDS ORDERED: VANCOMYCIN HCL LEVEL XX ONE (09:30)
[2016-08-11] MEDS: VANCOMYCIN HCL 1.5 GM in DEXTROSE 5 % IN WATER 500 ML IV SCH ×4 (10:12→21:06)
--- NOTE | 2016-08-11 12:57 | PN ---
Subjective - Date and Time Seen Date: 08/11/16 Time: 08:20 Subjective Narrative: Pt evaluated at bedside resting. Relates that his foot continues to improve with pain. Gets most pain with dressing changes or when putting foot in dependent position. He is POD #3 s/p transmetatarsal amputation left foot. Objective - Review of Systems Musculoskeletal Complaints: Reports: Other - left foot pain Neurological: Reports: Numbness - Vitals Vitals: Last Vital Signs Temp 36.8 C 08/11/16 10:00 Pulse 70 08/11/16 10:00 Resp 18 08/11/16 10:00 BP 155/86 08/11/16 10:00 Pulse Ox 92 08/11/16 10:00 - Exam Constitutional: Present: Alert, Oriented x3, Cooperative, No distress Extremity: Present: other - left foot pain Skin Exam: Present: other - Dressing to left foot CDI with minimal bloody drainage from surgery. Incision at amputation site left foot well approximated with sutures intact. No drainage. Drain placed to plantar surface of foot no longer with drainage in tube. Incision to dorsal foot remains open with packing in place. Minimal bloody drainage from this site, pain most notable to this area. Erythema resolved. Previous ulceration to plantar forefoot nearly resolved. Neurologic: Present: sensory deficit Appearance: Present: appropriate appearance Assessment/Plan - Problems/Diagnosis (1) Gangrene of left foot Problem: Acute Narrative: POD #3 s/p transmetatarsal amputation left foot, progressing well. No longer with drainage in TLS drain. Drain pulled today. Dorsal incision re-packed with 1/2" Iodoform packing gauze. New DSD applied. To be kept CDI. Will begin 25% weight bearing on surgical foot, keep most weight to heel. Use walker assist and wear surgical boot. (2) Cellulitis of foot Problem: Acute Narrative: Continue IV ABX. (3) Diabetic foot ulcer Problem: Acute Qualifiers: Diabetic foot ulcer location: unspecified part of foot Diabetes mellitus type: type 2 Laterality: left Non-pressure ulcer stage: unspecified non- pressure ulcer stage Qualified Code(s): E11.621 - Type 2 diabetes mellitus with foot ulcer; L97.529 - Non-pressure chronic ulcer of other part of left foot with unspecified severity Narrative: Nearly healed following surgery. New DSD applied. (4) Diabetes type 2, uncontrolled Problem: Chronic Qualifiers: Diabetes mellitus complication status: with skin complications Diabetes mellitus complication detail: with foot ulcer Diabetes mellitus supervisor intermediates insulin use: without supervisor intermediates use Qualified Code(s): E11.621 - Type 2 diabetes mellitus with foot ulcer; E11.65 - Type 2 diabetes mellitus with hyperglycemia; L97.509 - Non-pressure chronic ulcer of other part of unspecified foot with unspecified severity
[2016-08-11] MEDS: HYDROmorphone HCL 1 MG/ML DISP.SYRIN IV PRN ×2 (13:21→17:31)
[2016-08-11] MEDS: ENOXAPARIN SODIUM 40 MG/0.4 ML SYRG SC SCH (20:05)
[2016-08-11] MEDS: NICOTINE 21 MG PATC TD SCH (20:07)
[2016-08-11] MEDS: INSULIN GLARGINE,HUM.REC.ANLOG 100 UNITS/ML VIAL SC SCH (20:13)
[2016-08-12] MEDS: PIPERACILLIN SODIUM/TAZOBACTAM 3.375 GM in DEXTROSE 5 % IN WATER 100 ML IV SCH ×8 (02:19→20:48)
[2016-08-12] MEDS: ACETAMINOPHEN 500 MG TABLET PO PRN ×2 (02:39→10:13)
[2016-08-12 03:09] LABS: Hematocrit 35.5 % (42.0-52.0); Hemoglobin 12.2 gm/dL (13.5-18.0); Mean Cell Volume 91.7 fl (78-100); Mean Corpuscular Hemoglobin 31.5 pg (27-31); Mean Corpuscular Hgb Conc 34.4 g/dl (32-36); Neutrophil # 10.2 K/mm3 (1.3-6.0); Neutrophil % 70.5 % (42-75.0); Platelet Count 424 K/mm3 (150-450); Red Blood Count 3.87 M/mm3 (4.7-6.0); Red Cell Distribution Width 12.7 % (11.5-14.0); White Blood Count 14.5 K/mm3 (4.0-10.5)
[2016-08-12 03:23] LABS: Anion Gap 11.9 mmol/L (6.8-13.8); BUN/Creatinine Ratio 11.5 (9.0-21.6); Blood Urea Nitrogen 9 mg/dL (6-23); Calcium * 9.2 mg/dL (7.9-10.9); Carbon Dioxide 30.8 mmol/L (24-32.6); Chloride 99 mmol/L (97-106); Estimated Creat Clear 105.9; Glucose * 152 mg/dL (70-110); Potassium 3.7 mmol/L (3.4-4.6); Sodium 138 mmol/L (132-142)
[2016-08-12 03:30] LABS: Troponin I Less than 0.017 ng/ml (0.00-0.10)
--- NOTE | 2016-08-12 05:34 | PN ---
Subjective - Date and Time Seen Date: 08/12/16 Time: 05:26 Subjective Narrative: on dilaudid iv for pain control. no n/v. had episode this am of mild diaphoresis and "not feeling well". NWB left leg. pivots to commode. Objective - Review of Systems Generalized/Overall Review: Reports: Weakness, Fatigue. Denies: Chills, Fever EENTM: Reports: No Symptoms Reported Respiratory: Reports: No Symptoms Reported Cardiac: Reports: Other - diaphoresis and "not feeling well". Abdominal: Reports: No Symptoms Reported Genitourinary Symptoms: Reports: No Symptoms Reported Musculoskeletal Complaints: Reports: No Symptoms Reported Neurological: Reports: No Symptoms Reported Skin: Reports: No Symptoms Reported Endocrine: Reports: No Symptoms Reported Misc: All systems neg except as marked - Vitals Vitals: Last Vital Signs Temp 36.7 C 08/12/16 02:00 Pulse 70 08/12/16 02:00 Resp 18 08/12/16 02:00 BP 166/93 08/12/16 02:00 Pulse Ox 90 08/12/16 02:00 - Abnormal Lab Findings Abnormal Lab Findings: Abnormal Lab Results 08/12/16 08/12/16 Range/Units 03:00 03:00 WBC 14.5 H (4.0-10.5) K/mm3 RBC 3.87 L (4.7-6.0) M/mm3 Hgb 12.2 L (13.5-18.0) gm/dL Hct 35.5 L (42.0-52.0) % MCH 31.5 H (27-31) pg MPV 10.0 H (6.0-9.5) fl Immature Gran % (Auto) 1.20 H (0.001-0.429) % Immature Gran # (Auto) 0.17 H (0.000-0.0310) K/mm3 Lymphocytes % 18.8 L (20-51) % Neutrophils # 10.2 H (1.3-6.0) K/mm3 Random Glucose 152 H (70-110) mg/dL - Exam Constitutional: Present: Alert, Cooperative ENT Exam: Present: hearing grossly normal Neck: Present: supple Breasts: Present: Exam deferred Respiratory: Present: lungs clear, normal breath sounds, no respiratory distress Cardiovascular/Chest: Present: normal peripheral pulses, regular rate, rhythm, no chest tenderness Abdomen: Present: soft, nontender, nondistended /Rectal: Present: Exam deferred Extremity: Present: no calf tenderness, leg pain - left Skin Exam: Present: warm/dry, no cyanosis Assessment/Plan Plan Narrative: 1. Sepsis: - left foot cellulitis with ulcer, mri neg for osteo. - post op partial foot amputation by dr. gee - Barbra #4 - encourage pt to work with PT/OT - Vancomycin and zosyn iv - episode early this am of mild diaphoresis and "not feeling well" - ekg / trop / labs done due to hx of tobacco use and poorly controlled dm. - trop neg, ekg showed SR with no acute changes. - ? if episode due to anxiety ? - wbc mildly elevated but neutrophils decreased - ? monitor for now and recheck labs in am. 2. T2DM: - hgbA1C - 7.5 - Accu checks AC with sliding scale PRN 3. Tobacco abuse: - Smoked 1 PPD x 21 yrs. - Nicoderm patch 21 mg./ day 4. No health insurance. - currently applying for aid / medicaid. 5. DVT prophylaxis : - Lovenox 40 mg SQ QD. - Problems/Diagnosis (1) Severe sepsis Problem: Acute (2) Diabetic foot ulcer Problem: Acute Qualifiers: Diabetic foot ulcer location: unspecified part of foot Diabetes mellitus type: type 2 Laterality: left Non-pressure ulcer stage: unspecified non- pressure ulcer stage Qualified Code(s): E11.621 - Type 2 diabetes mellitus with foot ulcer; L97.529 - Non-pressure chronic ulcer of other part of left foot with unspecified severity (3) Cellulitis of foot Problem: Acute (4) Osteomyelitis Problem: Suspected Qualifiers: Osteomyelitis type: unspecified type Osteomyelitis location: foot Laterality: left Qualified Code(s): M86.9 - Osteomyelitis, unspecified (5) Diabetes type 2, uncontrolled Problem: Chronic Qualifiers: Diabetes mellitus complication status: with skin complications Diabetes mellitus complication detail: with foot ulcer Diabetes mellitus ad terminal makeup operator insulin use: without jail use Qualified Code(s): E11.621 - Type 2 diabetes mellitus with foot ulcer; E11.65 - Type 2 diabetes mellitus with hyperglycemia; L97.509 - Non-pressure chronic ulcer of other part of unspecified foot with unspecified severity (6) HTN (hypertension) Problem: Chronic Qualifiers: Hypertension type: essential hypertension Qualified Code(s): I10 - Essential (primary) hypertension (7) JOSE ELIAS (acute kidney injury) Problem: Acute (8) Tobacco abuse Problem: Chronic
[2016-08-12] MEDS: HYDROmorphone HCL 1 MG/ML DISP.SYRIN IV PRN ×4 (06:44→23:12)
[2016-08-12] MEDS: INSULIN LISPRO 100 UNITS/ML VIAL SC SCH ×3 (06:45→16:32)
[2016-08-12] MEDS: PANTOPRAZOLE SODIUM 40 MG TABLET.EC PO SCH (06:51)
[2016-08-12] MEDS: METOPROLOL TARTRATE 25 MG TABLET PO SCH ×2 (08:27→20:47)
[2016-08-12] MEDS: PSYLLIUM SEED 1 PACKET PACKET PO SCH (08:27)
[2016-08-12] MEDS: SENNOSIDES 8.6 MG TABLET PO SCH ×2 (08:28→20:48)
[2016-08-12] MEDS: GABAPENTIN 300 MG CAPSULE PO SCH ×2 (08:28→20:48)
[2016-08-12] MEDS: SACCHAROMYCES BOULARDII 250 MG CAPSULE PO SCH ×2 (08:28→20:48)
[2016-08-12] MEDS: VANCOMYCIN HCL 1.5 GM in DEXTROSE 5 % IN WATER 500 ML IV SCH ×4 (09:08→21:50)
--- NOTE | 2016-08-12 13:04 | PN ---
Subjective - Date and Time Seen Date: 08/12/16 Time: 07:45 Subjective Narrative: Pt evaluate at bedside resting. Relates pain to his left foot following surgery. He otherwise denies any further c/o. Has been compliant with keeping dressing CDI. Has applied weight to his heel with transfers, otherwise no weight on surgical foot. Objective - Review of Systems Musculoskeletal Complaints: Reports: Other - left foot pain Neurological: Reports: Numbness - Vitals Vitals: Last Vital Signs Temp 36.8 C 08/12/16 09:50 Pulse 71 08/12/16 09:50 Resp 20 08/12/16 09:50 BP 139/78 08/12/16 09:50 Pulse Ox 92 08/12/16 09:50 - Abnormal Lab Findings Abnormal Lab Findings: Abnormal Lab Results 08/12/16 08/12/16 Range/Units 03:00 03:00 WBC 14.5 H (4.0-10.5) K/mm3 RBC 3.87 L (4.7-6.0) M/mm3 Hgb 12.2 L (13.5-18.0) gm/dL Hct 35.5 L (42.0-52.0) % MCH 31.5 H (27-31) pg MPV 10.0 H (6.0-9.5) fl Immature Gran % (Auto) 1.20 H (0.001-0.429) % Immature Gran # (Auto) 0.17 H (0.000-0.0310) K/mm3 Lymphocytes % 18.8 L (20-51) % Neutrophils # 10.2 H (1.3-6.0) K/mm3 Random Glucose 152 H (70-110) mg/dL - Exam Constitutional: Present: Alert, Oriented x3, Cooperative Extremity: Present: other - left foot pain Skin Exam: Present: other - Incision to amputation site left foot well approximated with sutures intact. Minimal bloody drainage from medial aspect of incision. Dorsal foot incision with packing in place. Upon removal reveals healthy, granular underlying tissue with some tendon exposure. Minimal serosanguinous drainage. Previous ulceration near resolve to plantar flap. No localized SOI. Neurologic: Present: sensory deficit Assessment/Plan Plan Narrative: Pt continues to progress well following transmetatarsal amputation. Dorsal incision re-packed today with 1/2 inch Iodoform packing gauze. New DSD applied to left foot. To be kept CDI. May begin minimal weight bearing to left foot in surgical boot - keep weight to heel. - Problems/Diagnosis (1) Gangrene of left foot Problem: Acute Narrative: S/p transmentatarsal amputation. (2) Cellulitis of foot Problem: Acute Narrative: Continue IV ABX until d/c home. (3) Diabetic foot ulcer Problem: Acute Qualifiers: Diabetic foot ulcer location: unspecified part of foot Diabetes mellitus type: type 2 Laterality: left Non-pressure ulcer stage: unspecified non- pressure ulcer stage Qualified Code(s): E11.621 - Type 2 diabetes mellitus with foot ulcer; L97.529 - Non-pressure chronic ulcer of other part of left foot with unspecified severity Narrative: Near resolved. New dressing applied today. (4) Diabetes type 2, uncontrolled Problem: Chronic Qualifiers: Diabetes mellitus complication status: with skin complications Diabetes mellitus complication detail: with foot ulcer Diabetes mellitus senior living insulin use: without senior living use Qualified Code(s): E11.621 - Type 2 diabetes mellitus with foot ulcer; E11.65 - Type 2 diabetes mellitus with hyperglycemia; L97.509 - Non-pressure chronic ulcer of other part of unspecified foot with unspecified severity
[2016-08-12] MEDS: ENOXAPARIN SODIUM 40 MG/0.4 ML SYRG SC SCH (20:47)
[2016-08-12] MEDS: INSULIN GLARGINE,HUM.REC.ANLOG 100 UNITS/ML VIAL SC SCH (20:49)
[2016-08-12] MEDS: NICOTINE 21 MG PATC TD SCH (20:52)
[2016-08-13] MEDS: PIPERACILLIN SODIUM/TAZOBACTAM 3.375 GM in DEXTROSE 5 % IN WATER 100 ML IV SCH ×4 (04:41→12:28)
[2016-08-13] MEDS: HYDROmorphone HCL 1 MG/ML DISP.SYRIN IV PRN ×4 (05:28→19:24)
[2016-08-13] MEDS: PANTOPRAZOLE SODIUM 40 MG TABLET.EC PO SCH (07:19)
[2016-08-13] MEDS: ACETAMINOPHEN 500 MG TABLET PO PRN ×2 (07:22→17:18)
[2016-08-13] MEDS: INSULIN LISPRO 100 UNITS/ML VIAL SC SCH ×3 (07:29→17:15)
[2016-08-13] MEDS: SACCHAROMYCES BOULARDII 250 MG CAPSULE PO SCH (09:27)
[2016-08-13] MEDS: GABAPENTIN 300 MG CAPSULE PO SCH (09:27)
[2016-08-13] MEDS: PSYLLIUM SEED 1 PACKET PACKET PO SCH (09:28)
[2016-08-13] MEDS: METOPROLOL TARTRATE 25 MG TABLET PO SCH (09:28)
[2016-08-13] MEDS: SENNOSIDES 8.6 MG TABLET PO SCH (09:28)
[2016-08-13] MEDS: VANCOMYCIN HCL 1.5 GM in DEXTROSE 5 % IN WATER 500 ML IV SCH ×2 (09:55)
--- NOTE | 2016-08-13 13:50 | PN ---
Subjective - Date and Time Seen Date: 08/13/16 Time: 13:41 Subjective Narrative: Pt evaluate at bedside resting. Relates pain to his left foot following surgery , however this continues to improve daily. Today has c/o sudden onset tenderness and redness to left anterior tibial area. Has been compliant with keeping dressing CDI. Has applied weight to his heel and has completed stair training with PT today. Objective - Review of Systems Musculoskeletal Complaints: Reports: Other - left leg pain Neurological: Reports: Numbness Skin: Reports: Other - redness left lower leg - Vitals Vitals: Last Vital Signs Temp 36.7 C 08/13/16 10:00 Pulse 78 08/13/16 10:00 Resp 18 08/13/16 10:00 BP 141/81 08/13/16 10:00 Pulse Ox 96 08/13/16 10:00 - Exam Extremity: Present: leg pain Skin Exam: Present: other - Incision to amputation site left foot well approximated with sutures intact. Minimal bloody drainage from medial aspect of incision. Dorsal foot incision with packing in place. Upon removal reveals healthy, granular underlying tissue with some tendon exposure. Minimal serosanguinous drainage. Previous ulceration near resolve to plantar flap. No localized SOI. New onset erythema to anterior tibial area left leg, tender and warm to touch. Begins just proximal to the ankle and extends to just distal to the knee. Does not communicate with surgical site. Neurologic: Present: sensory deficit Assessment/Plan - Problems/Diagnosis (1) Gangrene of left foot Problem: Acute Narrative: POD #5 s/p transmetatarsal amputation left foot. Progressing well after surgery. Packing pulled today. New dressing applied. OK for d/c home pending LLE ultrasound - r/o DVT due to sudden onset left calf pain and redness. Pt to f/u in my office this Thursday for nurse visit for dressing change. Will f/u next Thursday as scheduled previously. Keep dressing left foot CDI. Plan to go home on minimum 3 weeks oral ABX. Prefer Bactrim DS and Clindamycin. (2) Cellulitis of foot Problem: Acute Narrative: Oral ABX x3 weeks upon d/c. (3) Diabetic foot ulcer Problem: Acute Qualifiers: Diabetic foot ulcer location: unspecified part of foot Diabetes mellitus type: type 2 Laterality: left Non-pressure ulcer stage: unspecified non- pressure ulcer stage Qualified Code(s): E11.621 - Type 2 diabetes mellitus with foot ulcer; L97.529 - Non-pressure chronic ulcer of other part of left foot with unspecified severity Narrative: Near resolved. New dressing applied today. (4) Diabetes type 2, uncontrolled Problem: Chronic Qualifiers: Diabetes mellitus complication status: with skin complications Diabetes mellitus complication detail: with foot ulcer Diabetes mellitus fdc insulin use: without fdc use Qualified Code(s): E11.621 - Type 2 diabetes mellitus with foot ulcer; E11.65 - Type 2 diabetes mellitus with hyperglycemia; L97.509 - Non-pressure chronic ulcer of other part of unspecified foot with unspecified severity
[2016-08-13 14:46] VITALS: BP 174/98
--- NOTE | 2016-08-13 16:40 | DS ---
(1) Status post transmetatarsal amputation of left foot Diagnosis(s): 08/08/2016 Problem: Acute (2) sepsis due to gangrene LT foot Problem: Acute (3) Tobacco abuse Problem: Chronic (4) T2DM (type 2 diabetes mellitus) Problem: Chronic Description of Stay: DATE OF ADMISSION: 08/06/2016. DATE OF DISCHARGE: 08/13/2016. DIAGNOSTICS: MRI OF FOOT W & W/C- 08/07/2016. US VENOUS EXTREMITY LIMITED LEFT- 08/13/2016. DISCHARGE SUMMARY: Dmitry Mari is a 61 yr old WM with a H/O T2DM, HTN, tobacco abuse who was admitted for diabetic foot ulcer with gangrene on left foot, cellulitis of left lower leg and sepsis. Patient underwent amputation of LT third toe and metatarsal head on 08/01/2016. Was on Bactrim, was seen for follow-up on [address] Moy due to increased drainage and pain. X-rays and cultures were negative. On 08/06/2016: Patient was seen in Dr. Moy's office and later sent in to the ER and was found to have sepsis. Significant labs: WBC 26.3, bands 15%, CRP 43.4, ESR 102, BUN/Cr 43/1.66, temp 38.7. X-ray of tibia and fibula negative. After blood cultures were taken the patient was started on vancomycin 1 g IV BID ; piperacillin and tazobactam 3.375 g IV Q6H. patient was placed on nicotine patch at 21 mg TP/ day and DVT prophylaxis w/ enoxaparin 40 mg SQ daily. MRI of foot W and W/C on 08/06/16: Fluid collection within the distal and plantar aspect of the foot, concerning the possibility of abscess; no definite abnormal signal within the osseous structures to suggest osteomyelitis; previous resection of the third toe and the distal aspect of the third metatarsal. Patient underwent transmetatarsal resection of LT foot on 08/07/2016. Underwent OT and PT during his hospitalization. He was continued on IV antibiotics. He complained of pain under LT leg on the day of discharge. An US of the LT lower leg was done. " This showed a LT popliteal fossa complex cyst extending into the calf. Differential diagnosis included infection/ hemorrhage/hematoma. Consider clinical/imaging follow-up. Left groin lymphadenopathy, nonspecific present. Could represent reactive lymph nodes from underlying infection or inflammatory process. Other considerations include potential malignancy. No sonographic evidence of left lower extremity DVT." Patient was discharged in a stable condition on Bactrim DS PO BID x 3 weeks and clindamycin 300 mg PO TID x 3 weeks. Strongly advised to quit smoking. Has follow-up appointments with Dr. Moy, PCP,wound clinic and ortho. A total of 50 minutes was spent in this encounter discussing test results, patient education, reconciliation of medications, plan of care, preparation and dictation of discharge summary. Procedures Performed: see notes below - s/p transmetatarsal amputation of LT foot [08/08/2016] Results and Findings: Laboratory Tests 08/06/16 08/10/16 08/12/16 13:50 05:00 03:00 WBC 26.3 H 13.7 H D 14.5 H Hgb 13.4 L 11.2 L 12.2 L Hct 39.5 L 32.6 L 35.5 L Plt Count 424 407 424 08/06/16 08/10/16 08/12/16 13:50 05:00 03:00 Plasma Sodium 135 142 139 Potassium 4.2 3.7 3.7 Chloride 94 L 103 99 Carbon Dioxide 21.4 L 25.6 30.8 BUN 43 H D 8 D 9 Creatinine 1.66 H D 0.74 0.78 Est GFR (Non-Af Amer) 45 L D 114 D 108 08/06/16 13:50 ESR 102 H C-Reactive Prot, Quant 43.4 H Procalcitonin 0.67 H lactic acid 5.7 H 08/07/16 05:30 Mean Blood Glucose 164 Hemoglobin A1c 7.5 H TSH 1.822 08/06/16 21:44 Microalb/Creat Ratio 23 Discharge Disposition: Home self care Disposition: Home self-care Condition: Undetermined Discharge Activity: Non-Weight bearing - LT leg - use crutches / walker Half-Way Therapy: Physicial Therapy, Occupation Therapy Consultation Done:: Dr. Moy Additional Patient Instructions (free text): Follow up with Dr. Moy in office 08/20 at 11:15 Wound center 08/26 at 2:15. Follow up with Dr. Moy in her office for dressing change 08/15 at 8:00 Follow up with Ortho for cyst behind LT. knee. [facility] will call you tomorrow with appt. Follow up with Dr. Buchanan 08/18 [facility] will call you with appt. tomorrow. Follow with PCP for management T2 DM, HTN, HLD etc. Continue with multivitamin, vitamin D3 2000 units daily, Metamucil /Benefiber 1- 2 tablespoons daily, nicotine patches 21 mg daily, senna 17.6mg 2 tabs twice a day, baby asa 81 mg daily [to be bought [id number] in a bottle of 100]. Please keep sugars below 150 mg/dL. at all times. call to make appt if higher. Fasting sugars should be between 90-120 mg/dl. Have a protein snack at bedtime. Give information regarding quitting smoking. Antibiotics had to be taken for a period of 21 days / 3 weeks. Have plain/Urdu yogurt to provide active cultures; can also have probiotics. Can alternate percocet with tylenol 1300 mg Q6H for pain . no NSAIDS. Keep left foot/ leg elevated 6-8 inches. move every hour to decrease clot formation. Please give information on how to bathe and foot care. Prescriptions (Any new or edited meds): Clindamycin HCl [Cleocin HCl] 300 mg PO TID #63 capsule Gabapentin [Neurontin] 600 mg PO HS #30 capsule Sulfamethoxazole/Trimethoprim [Bactrim Ds] 1 tab PO BID #42 tablet metFORMIN HCL [Metformin HCl ER] 500 mg PO BID #60 tab.er.24h Complete Home Medications List: Complete Home Medication List: Clindamycin HCl [Cleocin HCl] 300 mg PO TID #63 capsule 08/13/16 Gabapentin [Neurontin] 300 mg PO DAILY #30 capsule 08/13/16 Gabapentin [Neurontin] 600 mg PO HS #30 capsule 08/13/16 Sulfamethoxazole/Trimethoprim [Bactrim Ds] 1 tab PO BID #42 tablet 08/13/16 metFORMIN HCL [Metformin HCl ER] 500 mg PO BID #60 tab.er.24h 08/13/16 HYDROcodone/ACETAMINOPHEN [[facility] 5-325] 1 tab PO Q6H PRN 08/15/16 Amb Orders for Discharge: Consult Physician Time Frame: 2 Weeks, Location: Determined By Patient
== END 2016-08-13 19:40 | disposition home or self-care (01) | DRG 854 ==
LOC: ER 13:30 → MS 16:39 → UNDOADMIN 16:39
PROVIDERS: ADMIT Internal Medicine; ATTEND Internal Medicine
PROC: 0J9R0ZZ Drainage of Left Foot Subcutaneous Tissue and Fascia, Open Approach (ICD-10-PCS; principal; 2016-08-07)
PROC: 0Y6N0Z9 Detachment at Left Foot, Partial 1st Ray, Open Approach (ICD-10-PCS; 2016-08-08)
PROC: 0Y6N0ZB Detachment at Left Foot, Partial 2nd Ray, Open Approach (ICD-10-PCS; 2016-08-08)
PROC: 0Y6N0ZC Detachment at Left Foot, Partial 3rd Ray, Open Approach (ICD-10-PCS; 2016-08-08)
PROC: 0Y6N0ZD Detachment at Left Foot, Partial 4th Ray, Open Approach (ICD-10-PCS; 2016-08-08)
PROC: 0Y6N0ZF Detachment at Left Foot, Partial 5th Ray, Open Approach (ICD-10-PCS; 2016-08-08)
DX: A41.9 Sepsis, unspecified organism (principal); L97.429 Non-pressure chronic ulcer of left heel and midfoot with unspecified severity; N17.9 Acute kidney failure, unspecified; L03.032 Cellulitis of left toe; E11.621 Type 2 diabetes mellitus with foot ulcer; L97.529 Non-pressure chronic ulcer of other part of left foot with unspecified severity; I10 Essential (primary) hypertension; F17.210 Nicotine dependence, cigarettes, uncomplicated; Z79.84 Long term (current) use of oral hypoglycemic drugs; Z89.422 Acquired absence of other left toe(s)

== ENCOUNTER 2016-08-15 06:33 | Observation (INO) | payer MEDICAID ==
[2016-08-15] MEDS ORDERED: METHYLPREDNISOLONE SOD SUCC/PF 125 MG/2 ML VIAL IV ONE (07:04)
[2016-08-15] MEDS ORDERED: FAMOTIDINE 10 MG/ML VIAL IV ONE ×2 (07:05→07:06)
[2016-08-15] MEDS ORDERED: METHYLPREDNISOLONE SOD SUCC/PF 125 MG/2 ML VIAL ONE (07:06)
[2016-08-15] MEDS ORDERED: MORPHINE SULFATE 2 MG/ML DISP.SYRIN IV ONE (07:12)
[2016-08-15] MEDS ORDERED: MORPHINE SULFATE 2 MG/ML DISP.SYRIN ONE (07:17)
--- NOTE | 2016-08-15 07:19 | ERNOTE ---
<Dedrick Pope - Last Filed: 08/15/16 07:53> Allergy Symptoms - ER Presenting Symptoms: face swelling, other - tongue swelling Time Seen by Provider: 08/15/16 06:45 Source: patient, EMS Exam Limitations: clinical condition Immunizations: IMMUNIZATION HX Immunizations Up to Date No History of Influenza Vaccine No Hx Pneumococcal Vaccination No Allergies/Adverse Reactions: Allergies No Known Allergies Allergy (Verified 08/15/16 06:41) Home Medications: HOME MEDICATIONS Clindamycin HCl [Cleocin HCl] 300 mg PO TID #63 capsule 08/13/16 [Last Taken Unknown] Gabapentin [Neurontin] 300 mg PO DAILY #30 capsule 08/13/16 [Last Taken Unknown] Gabapentin [Neurontin] 600 mg PO HS #30 capsule 08/13/16 [Last Taken Unknown] Lisinopril [Prinivil] 10 mg PO HS #30 tablet 08/13/16 [Last Taken Unknown] Sulfamethoxazole/Trimethoprim [Bactrim Ds] 1 tab PO BID #42 tablet 08/13/16 [ Last Taken Unknown] metFORMIN HCL [Metformin HCl ER] 500 mg PO BID #60 tab.er.24h 08/13/16 [Last Taken Unknown] Aspirin/Calcium Carbonate/Mag [Aspirin Buffered 325 mg Tab] 325 mg PO DAILY [Last Taken Unknown] Ciprofloxacin HCl [Cipro] 500 mg PO BID 08/15/16 [Last Taken Unknown] Docusate Sodium [Dok] 100 mg PO BID 08/15/16 [Last Taken Unknown] HYDROcodone/ACETAMINOPHEN [[place] 5-325] 1 - 2 tab PO Q6H PRN 08/15/16 [Last Taken Unknown] Metoprolol Succinate [Toprol Xl] 25 mg PO BID 08/15/16 [Last Taken Unknown] - History of Present Illness Narrative: Pt awoke with swelling of his lips and tongue. Denies throat swelling. Pt had surgery on his foot and had been started on a number of new medications yesterday. Timing: Present: constant Treatment [employer] CONSULTANT:: by senior benefits manager, epinephrine - 0.5, benadryl Location skin rash/itching: Present: none Location swelling: Present: lip(s), tongue Severity shortness of breath: Present: mild Severity trouble swallowing/speaking: Present: moderate, severe Identified cause?: Yes Exposure: Present: ISHA inhibitor Modifying Factors (Improves): Reports: nothing Similar symptoms previously: No Prior Treament: Reports: recently seen, recently hospitalized - For foot surgery Review of Systems - Review of Systems Constitutional: Absent: recent illness EYE: Present: no symptoms reported ENT: Absent: throat swelling Respiratory: Present: stridor Cardiology: Present: no symptoms reported Gastrointestinal/Abdominal: Present: no symptoms reported Genitourinary: Present: no symptoms reported Musculoskeletal: Present: other - foot pain from recent surgery Skin: Absent: rash - or itching Neurological: Absent: dizziness/light-headedness Endocrine: Present: no symptoms reported Hematologic/Lymphatic: Present: no symptoms reported Psych: Present: no symptoms reported - Patient's Past Medical History Patient History - Medical: Diabetes Type 2, Migraines, Other Patient History - Cardiac/Respiratory: Hypertension Patient History - Cancer: No Hx of Cancer Patient History - Surgical Procedures: Amputation, Hernia Repair Patient History - Other: None - Family History Mother Family History - Medical: No pertinent hx Family History - Cardiac/Respiratory: No pertinent hx Family History - Cancer: No pertinent family hx Father Family History - Medical: Diabetes Type 2 Family History - Cardiac/Respiratory: No pertinent hx Family History - Cancer: No pertinent family hx - Social History Living Situations: alone Abuse History: No History of abuse Psych History: No pertinent hx Smoking Status: Former smoker Alcohol Use: none Drug Use: none - Immunizations Immunizations Up to Date: No Hx Pneumococcal Vaccination: No History of Influenza Vaccine: No Physical Exam - Physical Exam General Appearance: Present: wd/wn, alert, moderate distress, anxious Eye Exam: Normal inspection: bilateral, PERRL: bilateral Ears, Nose, Throat: Present: other - Tongue swelling fills mouth 2/3. Good nasal passage and air flow. unable to swallow saliva. Absent: pharyngeal swelling, tonsillar swelling Neck: Present: normal inspection, nontender Respiratory: Present: no respiratory distress, no accessory muscle use, lungs clear Cardiovascular/Chest: Present: no murmur, tachycardia Extremity Exam: Present: no edema, other - left foot wrapped in ISHA wrap from recent surgery Neurological Exam: Present: alert, oriented Skin Exam: Present: normal color, warm/dry Lymphatic Exam: Present: no adenopathy ED Progress - Vital Signs Patient's Vital Signs:: I have reviewed the patient's vital signs. Vital Signs: Vital Signs 08/15/16 08/15/16 08/15/16 06:33 06:38 06:47 Temperature 37.1 C 36.7 C Pulse Rate 109 H Respiratory 15 21 H Rate Blood Pressure 139/79 197/87 O2 Sat by Pulse 95 96 Oximetry - Progress/Reassessment Chief Complaint: Allergic Reaction Progress:: Unchanged Progress Note-Subjective: 08/15/16 07:32 Pt given 2 mg of morphine IV for foot pain as he has been unable to take his pain medication today. He got somewhat somnolent and his SaO2 went down to 88% on RA, O2 was administered per NC at 2L/min. Dr. Moy is scheduled to change his bandage today. We will contact her so his bandages can be changed while he is here in the ED. - Transfer of Care Physician Sign Out: Dedrick Pope Receiving Physician: Maxwell Springer - awaiting symptom reduction Expected Disposition: Discharge Departure Clinical Impression: Angio-edema Qualifiers: Encounter type: initial encounter Qualified Code(s): T78.3XXA - Angioneurotic edema, initial encounter - Departure Disposition: [facility] Condition: Fair <Maxwell Springer - Last Filed: 08/15/16 08:52> Allergy Symptoms - ER Immunizations: IMMUNIZATION HX Immunizations Up to Date No History of Influenza Vaccine No Hx Pneumococcal Vaccination No ED Progress - Date and Time Seen: Date and Time: 08/15/16 07:58 I have assumed care of the patient at 08:00. The patient continues to have significant swelling of the tongue and oropharynx. He is still having significant swelling and having some trouble clearing secretions. I will give him another hour or so and see if he has significant improvement. - Vital Signs Vital Signs: Vital Signs 08/15/16 08/15/16 08/15/16 06:33 06:38 06:47 Temperature 37.1 C 36.7 C Pulse Rate 109 H Respiratory 15 21 H Rate Blood Pressure 139/79 197/87 O2 Sat by Pulse 95 96 Oximetry 08/15/16 08/15/16 08/15/16 06:51 07:05 07:20 Temperature Pulse Rate 107 H 106 H 102 H Respiratory 23 H 27 H 15 Rate Blood Pressure 148/64 134/76 134/68 O2 Sat by Pulse 97 94 Oximetry Plan - Plan Plan: The patient has significant involvement of tongue as well as soft palate. I suspect some laryngeal involvement-- he has a wet sounding cough which he is unable to completely clear. I have discussed with him need for admission. Departure - Critical Care Total Time (mins): 35
[2016-08-15] MEDS ORDERED: diphenhydrAMINE HCL 50 MG/ML VIAL IV PRN (11:19)
[2016-08-15] MEDS: FAMOTIDINE 20 MG in DEXTROSE 5 % IN WATER 100 ML IV SCH ×2 (11:55)
[2016-08-15] MEDS ORDERED: INSULIN LISPRO 100 UNITS/ML VIAL ONE (12:40)
--- NOTE | 2016-08-15 12:40 | CONS ---
- Reason for consultation (1) Status post transmetatarsal amputation of left foot Date of Service: 08/15/16 HPI - General Date of Service: 08/15/16 Narrative: Pt presenting to the ED this am via ambulance with c/o swelling of his tongue. Was discharged from hospital recently following a stay for left lower extremity infection and subsequent transmentatarsal amputation. Woke this morning with a swollen tongue. He was to have a nurse visit in my office today for dressing change, however is admitted to hospital with angioedema. I was consulted for care of the surgical foot. Still relates some tenderness to the foot and to the anterior tibial area left leg. Has had ultrasound negative for DVT. Did find a cyst to his left popliteal area. Was recommended f/u with orthopedics for eval and care, however has not yet had a chance to schedule this appointment. Source: patient Exam Limitations: no limitations - History of Present Illness Allergies/Adverse Reactions: Allergies lisinopril Adverse Reaction (Severe, Verified 08/15/16 11:09) Angioedema Home Medications: Home Medications Medication Instructions Recorded Last Taken HYDROcodone/ACETAMINOPHEN [[place] 1 tab PO Q6H PRN 08/15/16 Unknown 5-325] - Patient's Past Medical History Patient History - Medical: Diabetes Type 2, Migraines, Other Patient History - Cardiac/Respiratory: Hypertension Patient History - Cancer: No Hx of Cancer Patient History - Surgical Procedures: Amputation, Hernia Repair Patient History - Other: None - Family History Mother Family History - Medical: Family History - Cardiac/Respiratory: No pertinent hx Family History - Cancer: No pertinent family hx Father Family History - Medical: Diabetes Type 2 Family History - Cardiac/Respiratory: CHF, Other Family History - Cancer: No pertinent family hx - Social History Living Situations: home Abuse History: No History of abuse Psych History: No pertinent hx Smoking Status: Former smoker Have you smoked in the past 12 months: Yes Do you dip or chew tobacco: No Smoking Start Date: 02/16/78 Smoking Stop Date: 07/21/16 Patient requests Smoking Cessation Consult: No Initiate information on Smoking Cessation: No Alcohol Use: none Drug Use: none - Immunizations Immunizations Up to Date: No Hx Pneumococcal Vaccination: No History of Influenza Vaccine: No Procedures DETACHMENT AT LEFT 3RD TOE, COMPLETE, OPEN APPROACH (07/21/16) DETACHMENT AT LEFT FOOT, PARTIAL 1ST RAY, OPEN APPROACH (08/06/16) DETACHMENT AT LEFT FOOT, PARTIAL 2ND RAY, OPEN APPROACH (08/06/16) DETACHMENT AT LEFT FOOT, PARTIAL 3RD RAY, OPEN APPROACH (08/06/16) DETACHMENT AT LEFT FOOT, PARTIAL 4TH RAY, OPEN APPROACH (08/06/16) DETACHMENT AT LEFT FOOT, PARTIAL 5TH RAY, OPEN APPROACH (08/06/16) DRAINAGE OF L FOOT SUBCU/FASCIA, OPEN APPROACH (08/06/16) EXCISION OF LEFT FOOT SKIN, EXTERNAL APPROACH (07/21/16) Medications - Medications Current Medications: Current Medications Famotidine 20 mg/ Dextrose/ (Water) 102 mls @ 400 mls/hr IV Q12H REBECA Stop: 09/14/16 11:31 Last Infusion: 08/15/16 12:11 Dose: Infused Review of Systems - Review of Systems EENTM: Present: Mouth Swelling Musculoskeletal: Present: Other - Left lower leg/foot pain Neurological: Present: Numbness Skin: Present: Other - Incision left foot, redness left lower leg Physical Examination - Exam Vital Signs: Vital Signs - Last Taken Temp 36.9 C 08/15/16 09:20 Pulse 88 08/15/16 09:20 Resp 18 08/15/16 09:20 BP 149/78 08/15/16 09:20 Pulse Ox 98 08/15/16 09:20 O2 Oxygen Delivery Method Room Air Constitutional: Present: Alert, Oriented x3, Cooperative Peripheral Pulses: dorsalis-pedis (L): 1+ Extremity: Present: other - left lower leg and foot pain. Skin Exam: Present: other - Incision at amputation site left foot well approximated with sutures intact. Area to medial aspect of incision with some bloody drainage. Incision to dorsal foot remains open with minimal serous drainage present. Original ulceration to plantar foot now in plantar flop of amputation, near resolved measuring 0.1 x 0.7 x 0.2 cm. Erythema to anterior tibial area left leg - improved from previous visit however still painful and warm to touch. Neurologic: Present: sensory deficit - Assessments/Findings (1) Status post transmetatarsal amputation of left foot Diagnosis(s): Dressing removed. Amputation site and incision to dorsal foot appear to be healing well following surgery. No localized SOI noted. New DSD applied. To be kept CDI. Will continue oral ABX when able to swallow. Plan to follow up in my office as scheduled after discharge. Will follow as needed during hospital stay. Problem: Acute
[2016-08-15] MEDS: diphenhydrAMINE HCL 50 MG/ML VIAL IV SCH ×2 (12:41→17:43)
[2016-08-15] MEDS: INSULIN LISPRO 100 UNITS/ML VIAL SC SCH ×2 (12:41→17:42)
[2016-08-15] MEDS: METHYLPREDNISOLONE SOD SUCC 30 MG in WATER FOR INJ.,BACTERIOSTATIC 0 ML IV SCH ×2 (12:44→17:43)
[2016-08-15] MEDS ORDERED: ACETAMINOPHEN 500 MG TABLET PO PRN (13:24)
[2016-08-15] MEDS: CLINDAMYCIN HCL 150 MG CAPSULE PO SCH ×2 (13:54→21:47)
[2016-08-15] MEDS: oxyCODONE HCL/ACETAMINOPHEN 1 TAB TABLET PO PRN ×2 (13:54→19:37)
--- NOTE | 2016-08-15 16:37 | HP ---
Chief Complaint - Chief Complaint Date of Service: 08/15/16 Time of Service: 16:36 Chief Complaint: swelling of tongue and difficulty in breathing. History of Present Illness: Patient is a 61-year-old WM with a history of HTN, T2 DM, tobacco abuse, S/P transmetatarsal amputation of left foot [08/07/2016] who came in due to swelling of his tongue and difficulty in breathing. He was discharged on 08/13 on lisinopril 10 mg daily at as he has a H/O of HTN and has T2DM. Patient was treated with Solu-Medrol 125 mg IV, famotidine IV in the ER with improvement in symptoms. The patient was given Benadryl in the ambulance. He was admitted into observation to be monitored overnight. - Patient's Past Medical History Additional info: PAST MEDICAL HISTORY: HTN, tobacco abuse, migraines, T2 DM, neuropathy. Patient History - Cancer: No Hx of Cancer Additional Info: PAST SURGICAL HISTORY: Hernia repair; S/P Transmetatarsal amputation LT foot 08/07/2016. Patient History - Other: None - Family History Mother Family History - Medical: Family History - Cardiac/Respiratory: No pertinent hx Family History - Cancer: No pertinent family hx Father Family History - Medical: Diabetes Type 2 Family History - Cardiac/Respiratory: CHF, Other Family History - Cancer: No pertinent family hx - Social History Living Situations: home Abuse History: No History of abuse Psych History: No pertinent hx Smoking Status: Former smoker - 1 pack per day since age 21; quit 08/06/2016. Have you smoked in the past 12 months: Yes Do you dip or chew tobacco: No Smoking Start Date: 02/16/78 Smoking Stop Date: 07/21/16 Patient requests Smoking Cessation Consult: No Initiate information on Smoking Cessation: No Alcohol Use: none Drug Use: none - Immunizations Immunizations Up to Date: No Hx Pneumococcal Vaccination: No History of Influenza Vaccine: No Review Of Systems (GEN) - Review of Systems Respiratory: Present: Shortness of Breath Cardiac: Present: Edema - Tongue Immunizations: IMMUNIZATION HX Immunizations Up to Date No History of Influenza Vaccine No Hx Pneumococcal Vaccination No Allergies/Adverse Reactions: Allergies Allergy/AdvReac Type Severity Reaction Status Date / Time lisinopril AdvReac Severe Angioedema Verified 08/15/16 11:09 Home Medications: HOME MEDICATIONS Clindamycin HCl [Cleocin HCl] 300 mg PO TID #63 capsule 08/13/16 [Last Taken 18:00] Gabapentin [Neurontin] 300 mg PO DAILY #30 capsule 08/13/16 [Last Taken Unknown] Gabapentin [Neurontin] 600 mg PO HS #30 capsule 08/13/16 [Last Taken Unknown] Lisinopril [Prinivil] 10 mg PO HS #30 tablet 08/13/16 [Last Taken Unknown] Sulfamethoxazole/Trimethoprim [Bactrim Ds] 1 tab PO BID #42 tablet 08/13/16 [ Last Taken 08/14/16 18:00] metFORMIN HCL [Metformin HCl ER] 500 mg PO BID #60 tab.er.24h 08/13/16 [Last Taken Unknown] HYDROcodone/ACETAMINOPHEN [[place] 5-325] 1 tab PO Q6H PRN 08/15/16 [Last Taken Unknown] Exam - Exam Vital Signs: Vital Signs - Last Taken Temp 36.4 C L 08/15/16 15:34 Pulse 85 08/15/16 15:34 Resp 18 08/15/16 15:34 BP 112/54 08/15/16 15:34 Pulse Ox 93 08/15/16 15:34 Constitutional: Present: Middle aged, Looks Older than stated age ENT Exam: Present: moist mucous membranes - tongue coated Eye Exam: bilateral eye: PERRL, EOMI Neck: Present: normal inspection, trachea midline Respiratory: Present: normal breath sounds. Absent: no accessory muscle use Cardiovascular/Chest: Present: regular rate, rhythm. Absent: tachycardia Peripheral Pulses: carotid (R): 2+, carotid (L): 2+ Abdomen: Present: Normal bowel sounds, nontender, nondistended, obese Extremity: Present: other - LT lower leg still warm and tender - improved from Appearance: Present: disheveled Eye contact: Present: cooperative, good eye contact Assessment/Plan - Procedures Results: 1. Allergic reaction to lisinopril/ ricci inhibitors: D/C lisinopril. 2. Angioedema: Solu-Medrol 30 mg IV q6h X 2 doses. Famotidine 20 mg IV Q12H Ceterizine 10 mg PO HS. 3. T2DM : Cover with humalog AC. Continue metformin ER. 4. S/P transmetatarsal amputation of LT foot: Continue Bactrim DS twice a day and clindamycin [address] Mireles to cover from thursday08/15/16 evening. Possible D/C on 08/16/16.
[2016-08-15] MEDS ORDERED: LORATADINE 10 MG TABLET PO SCH (21:00)
[2016-08-15] MEDS ORDERED: GABAPENTIN 300 MG CAPSULE PO SCH (21:00)
[2016-08-15] MEDS: SULFAMETHOXAZOLE/TRIMETHOPRIM 1 TAB TABLET PO SCH (21:47)
[2016-08-16] MEDS: FAMOTIDINE 20 MG in DEXTROSE 5 % IN WATER 100 ML IV SCH ×2 (00:37)
[2016-08-16] MEDS: diphenhydrAMINE HCL 50 MG/ML VIAL IV SCH ×2 (00:38→05:35)
[2016-08-16] MEDS: oxyCODONE HCL/ACETAMINOPHEN 1 TAB TABLET PO PRN ×2 (02:56→09:07)
[2016-08-16] MEDS: CLINDAMYCIN HCL 150 MG CAPSULE PO SCH (05:34)
[2016-08-16] MEDS: INSULIN LISPRO 100 UNITS/ML VIAL SC SCH (08:26)
[2016-08-16] MEDS ORDERED: GABAPENTIN 300 MG CAPSULE PO SCH (09:00)
[2016-08-16] MEDS: SULFAMETHOXAZOLE/TRIMETHOPRIM 1 TAB TABLET PO SCH (09:06)
--- NOTE | 2016-08-16 11:10 | DS ---
(1) Angio-edema Diagnosis(s): Dmitry was admitted to observation with angioedema secondary to lisinopril. Lisinopril was discontinued, he was given steroids and angioedema resolved. He was instructed to check blood pressures at home off the lisinopril as he stated that his blood pressure has been controlled at home. He will follow up in clinic in 1 week with these readings. Problem: Acute Qualifiers: Encounter type: initial encounter Qualified Code(s): T78.3XXA - Angioneurotic edema, initial encounter Procedures Performed: none Discharge Disposition: Home self care Disposition: Home self-care Condition: Fair Discharge Activity: Non-Weight bearing - left foot Discharge Diet: Consistent carbs Referrals: Faustino Buchanan MD [Primary Care Provider] - One Week Problem Oriented Discharge Instructions to Patient/Family: Angioedema, Easy-to- Read Additional Patient Instructions (free text): Do not take Lisinopril. Get a home blood pressure machine to check pressure at home daily. Record these and bring this to your follow up visit to determine if you need to be continued on blood pressure medications. Complete Home Medications List: Complete Home Medication List: Clindamycin HCl [Cleocin HCl] 300 mg PO TID #63 capsule 08/13/16 Gabapentin [Neurontin] 300 mg PO DAILY #30 capsule 08/13/16 Gabapentin [Neurontin] 600 mg PO HS #30 capsule 08/13/16 Sulfamethoxazole/Trimethoprim [Bactrim Ds] 1 tab PO BID #42 tablet 08/13/16 metFORMIN HCL [Metformin HCl ER] 500 mg PO BID #60 tab.er.24h 08/13/16 HYDROcodone/ACETAMINOPHEN [[place] 5-325] 1 tab PO Q6H PRN 08/15/16
[2016-08-16 11:21] VITALS: BP 134/88
[2016-08-16] MEDS ORDERED: NORMAL SALINE IV SCH (11:30)
[2016-08-16] MEDS ORDERED: FAMOTIDINE IV SCH (11:30)
== END 2016-08-16 11:55 | disposition home or self-care (01) ==
LOC: ER 06:33 → MS 08:52 → INTOOBSV 08:52
PROVIDERS: ADMIT Internal Medicine; ATTEND Internal Medicine
DX: T78.3XXA Angioneurotic edema, initial encounter (principal); T46.4X5A Adverse effect of angiotensin-converting-enzyme inhibitors, initial encounter; Y92.009 Unspecified place in unspecified non-institutional (private) residence as the place of occurrence of the external cause; I10 Essential (primary) hypertension; Z72.0 Tobacco use; E11.40 Type 2 diabetes mellitus with diabetic neuropathy, unspecified; Z79.4 Long term (current) use of insulin; Z89.432 Acquired absence of left foot
CPT/HCPCS: 96365; 96366; 96372; 96374; 96375; 96376; 99291; G0378

== ENCOUNTER 2016-09-30 15:24 | Observation (INO) | payer MEDICAID, OTHER ==
[2016-09-30] MEDS ORDERED: DILTIAZEM HCL 5 MG/ML VIAL IV ONE ×3 (15:58→16:12)
[2016-09-30] MEDS ORDERED: NICOTINE 14 MG PATC TD SCH (16:15)
[2016-09-30] MEDS ORDERED: DIGOXIN 0.25 MG/ML AMPUL IV ONE (16:30)
[2016-09-30] MEDS: DILTIAZEM HCL 125 MG in DEXTROSE 5 % IN WATER 100 ML IV PRN ×2 (18:00)
[2016-09-30 20:13] LABS: Hematocrit 37.4 % (42.0-52.0); Hemoglobin 12.4 gm/dL (13.5-18.0); Mean Cell Volume 93.3 fl (78-100); Mean Corpuscular Hemoglobin 30.9 pg (27-31); Mean Corpuscular Hgb Conc 33.2 g/dl (32-36); Mean Platelet Volume 10.9 fl (6.0-9.5); Neutrophil # 5.6 K/mm3 (1.3-6.0); Neutrophil % 61.6 % (42-75.0); Platelet Count 207 K/mm3 (150-450); Red Blood Count 4.01 M/mm3 (4.7-6.0); Red Cell Distribution Width 14.1 % (11.5-14.0)
[2016-09-30 20:28] LABS: Albumin * 3.4 gm/dl (3.4-5.0); Anion Gap 14.5 mmol/L (6.8-13.8); BUN/Creatinine Ratio 18.4 (9.0-21.6); Bilirubin, Total 0.3 mg/dL (0.0-1.1); Ca. Corrected For Albumin 9.4 mg/dL (8.4-10.2); Calcium * 9.2 mg/dL (7.9-10.9); Carbon Dioxide 26.3 mmol/L (24-32.6); Potassium 3.8 mmol/L (3.4-4.6); Total Protein 7.2 gm/dL (6.2-8.2)
[2016-09-30] MEDS: DIGOXIN 0.25 MG/ML AMPUL IV SCH (20:29)
--- NOTE | 2016-09-30 20:35 | HP ---
Chief Complaint - Chief Complaint Date of Service: 09/30/16 Time of Service: 19:20 Chief Complaint: Atrial flutter with RVR History of Present Illness: 61 years old male adm to the hospital from Dr. Buchanan office with reports of Atrial flutter. PMH significant for hypertension, diabetes, on 08/06/16 S/P left foot trans-metatarsal amputation secondary to gangrene of distal left foot. He was discharge home on oral antibiotics and completed the regimen. He had taken wellbutrin for smoking cessation but had continue smoking despite its use.Pt stated yesterday he had follow up appointment with Dr. Moy post surgery and had dressing changed. While at appointment his heart rate was elevated. Patient was referred to see Dr. Buchanan, he was seen and EKG obtained showing Atrial flutter with RVR. Pt report S/S tremors and lightheadedness, that had since been resolved since adm. On this adm he was given bolus Cardizem 10mg x2 and digoxin x1. will continue with tele monitoring , titrate cardezem drip, digoxin and labs pending. - Patient's Past Medical History Patient History - Medical: Diabetes Type 2, Migraines, Other Patient History - Cardiac/Respiratory: Hypertension Patient History - Cancer: No Hx of Cancer Patient History - Surgical Procedures: Amputation - left foot transmetatarsal, Hernia Repair Patient History - Other: None - Family History Mother Family History - Medical: Family History - Cardiac/Respiratory: No pertinent hx Family History - Cancer: No pertinent family hx Father Family History - Medical: Diabetes Type 2 Family History - Cardiac/Respiratory: CHF, Other Family History - Cancer: No pertinent family hx - Social History Living Situations: other - daughter lives with him Abuse History: No History of abuse Psych History: No pertinent hx Smoking Status: Current every day smoker Have you smoked in the past 12 months: Yes Patient requests Smoking Cessation Consult: Yes Initiate information on Smoking Cessation: Yes Alcohol Use: none Drug Use: none - Immunizations Immunizations Up to Date: No Hx Pneumococcal Vaccination: No History of Influenza Vaccine: No Review Of Systems (GEN) - Review of Systems Generalized/Overall Review: Present: No Symptoms Reported EENTM: Present: No Symptoms Reported Respiratory: Present: No Symptoms Reported Cardiac: Present: No Symptoms Reported Abdominal: Present: No Symptoms Reported Genitourinary: Present: No Symptoms Reported Musculoskeletal: Present: Other - s/p left foot transmetatarsal amputation Neurological: Present: No Symptoms Reported Skin: Present: No Symptoms Reported Immunizations: IMMUNIZATION HX Immunizations Up to Date No History of Influenza Vaccine No Hx Pneumococcal Vaccination No Allergies/Adverse Reactions: Allergies Allergy/AdvReac Type Severity Reaction Status Date / Time lisinopril AdvReac Severe Angioedema Verified 09/30/16 16:52 Home Medications: HOME MEDICATIONS Gabapentin [Neurontin] 600 mg PO HS #30 capsule 08/13/16 [Last Taken 09/29/16] Gabapentin [Neurontin] 300 mg PO BID 09/30/16 [Last Taken 09/30/16] buPROPion HCL [Wellbutrin XL] 150 mg PO DAILY 09/30/16 [Last Taken 09/29/16] oxyCODONE HCL/ACETAMINOPHEN [Percocet 5-325 mg Tablet] 1 - 2 each PO Q4H PRN [Last Taken 09/30/16 11:00] Exam - Exam Vital Signs: Vital Signs - Last Taken Temp 36.9 C 09/30/16 18:57 Pulse 149 H 09/30/16 18:57 Resp 21 H 09/30/16 18:57 BP 108/63 09/30/16 18:57 Pulse Ox 98 09/30/16 18:53 Constitutional: Present: Alert, Oriented x3, Cooperative, Well developed ENT Exam: Present: normal ENT inspection Eye Exam: bilateral eye: normal inspection Back Exam: Present: normal inspection Respiratory: Present: normal breath sounds Cardiovascular/Chest: Present: normal peripheral pulses, no chest tenderness, tachycardia, irregularly irregular Peripheral Pulses: dorsalis-pedis (R): 3+, dorsalis-pedis (L): 3+ Abdomen: Present: Normal bowel sounds, soft, nontender /Rectal: Present: Exam deferred Extremity: Present: normal range of motion, no calf tenderness, normal capillary refill, other - left foottransmetatarsal amputation Skin Exam: Present: normal color Lymphatic: Present: no adenopathy Neurologic: Present: alert, normal mood/affect, oriented x 3 Appearance: Present: appropriate appearance Eye contact: Present: cooperative Thoughts: Present: normal thought pattern Assessment/Plan - Narrative Narrative: New onset Atrial flutter: seen on EKG possible due to smoking cessation with aid of wellbutrin Stop wellbutrin for now Repeat EKG and continue with telemetry Bolus Cardizem 10mg x2 and digoxin 0.25mg x1, HR sustained in the 140's Continue with Cardizem drip and titrate as indicated Continue digoxin Q6hr TSH, CBC, CMP pending Hypertension On adm BP 108/63--->133/47 continue to monitor Monitor BP while on drip T2DM- On adm blood glucose 198 Pt stated he his using diet controlled while at home,. Accu-check TID Tobacco abuse- pt stated he continue to smoke daily despite plan to stop smoking. Re-enforced smoking cessation education stop wellbutrin Nicotine patch Q day S/P left foot trans-metatarsal amputation 08/06/16- secondary to gangrene left distal foot pt stated he had completed oral antibiotic regimen 09/29/[address] Moy Pt stated he had stopped using assisting devices and use surgical boot sometimes. Percocet for pain control Full Code DVT PPX- ambulate pt and GI ppx Time 45 minutes - Assessment/Plan (1) Atrial flutter with rapid ventricular response Problem: Acute (2) Status post transmetatarsal amputation of left foot Problem: Acute (3) HTN (hypertension) Problem: Chronic Qualifiers: Hypertension type: essential hypertension Qualified Code(s): I10 - Essential (primary) hypertension (4) T2DM (type 2 diabetes mellitus) Problem: Chronic (5) Tobacco abuse Problem: Chronic
[2016-09-30] MEDS ORDERED: oxyCODONE HCL/ACETAMINOPHEN 1 TAB TABLET PO PRN (20:54)
[2016-10-01] MEDS: DIGOXIN 0.25 MG/ML AMPUL IV SCH ×2 (02:36→08:03)
[2016-10-01] MEDS: DILTIAZEM HCL 125 MG in DEXTROSE 5 % IN WATER 100 ML IV PRN ×4 (02:37→09:58)
[2016-10-01] MEDS ORDERED: POTASSIUM CHLORIDE 20 MEQ TABLET.SA PO ONE (08:49)
[2016-10-01] MEDS ORDERED: DILTIAZEM HCL 60 MG TABLET PO ONE (09:00)
[2016-10-01] MEDS ORDERED: DILTIAZEM HCL 30 MG TABLET PO ONE (11:15)
--- NOTE | 2016-10-01 13:05 | DS ---
(1) Atrial flutter with rapid ventricular response Problem: Acute (2) Status post transmetatarsal amputation of left foot Problem: Chronic (3) T2DM (type 2 diabetes mellitus) Diagnosis(s): diet controlled Problem: Chronic Qualifiers: Diabetes mellitus complication status: with circulatory complication (4) Tobacco abuse Problem: Chronic Description of Stay: DATE OF ADMISSION: 09/30/2016. DATE OF DISCHARGE: 10/01/2016. DIAGNOSTICS: NONE. DISCHARGE SUMMARY: Dmitry Chaidez is a 61-year-old WM with a H/O T2 DM, PAD, S/P TMA of LT foot, nicotine abuse was found to have a heart rate of 150/minute when seen at a routine appointment at his [employer]'s office. Patient was recently started on bupropion ER 150 mg daily for nicotine cessation. He did not have any symptoms in terms of CP, SOB, palpitations, lightheadedness. Patient does not have a H/O HTN. He was given Lanoxin IV inititially and started on a diltiazem drip. This was gradually titrated to 15 mg/h which he tolerated well. He was then transitioned to 60 mg every 6 hours and later switched over to diltiazem CD 360 mg PO HS. He was also started on Apixaban ( Eliquis) 5 mg PO BID for anticoagulation. Patient was started on NicoDerm patches 14 mg TP daily. A TTE was ordered an outpatient basis Patient was stable at the time of discharge. Procedures Performed: none Results and Findings: Laboratory Tests 09/30/16 20:12 WBC 9.0 Hgb 12.4 L Hct 37.4 L Plt Count 207 09/30/16 20:12 Plasma Sodium 143 H Potassium 3.8 Chloride 104 Carbon Dioxide 26.3 BUN 16 D Creatinine 0.87 Est GFR (Non-Af Amer) 95 Random Glucose 198 H Calcium Adj for Albumin 9.4 Total Bilirubin 0.3 AST 10 ALT 29 Alkaline Phosphatase 87 Total Protein 7.2 Albumin 3.4 TSH 3.618 Discharge Disposition: Home self care Disposition: Home self-care Condition: Undetermined Discharge Diet: Consistent carbs, Low salt, Low fat/chol, High Fiber Referrals: Faustino Buchanan MD [Primary Care Provider] - Problem Oriented Discharge Instructions to Patient/Family: Smoking Cessation, Tips for Success, [id number], Atrial Flutter Additional Patient Instructions (free text): Follow up with Dr. Buchanan on Tuesday 10/03 @ 9:00 a.m. NO SMOKING !!! Use nicotine patches and regular gum. MEDICATIONS DC'D: Bupropion ER. NEW MEDICATIONS: ELIQIS 5 mg PO twice a day. Diltiazem CD/ER 360 mg to be taken at 7 PM today and at bedtime from 10/02/2016. Take vitamin D 3 2000 units daily. Please given information to patient on quitting smoking. Keep appt at [place] with obstetrics gynecology md for for CHRISTINA and cardioversion. Prescriptions (Any new or edited meds): Apixaban [Eliquis] 5 mg PO BID #60 tablet Diltiazem HCl [Diltiazem ER] 360 mg PO DAILY #30 capsule.er Complete Home Medications List: Complete Home Medication List: Gabapentin [Neurontin] 600 mg PO HS #30 capsule 08/13/16 Gabapentin [Neurontin] 300 mg PO BID 09/30/16 oxyCODONE HCL/ACETAMINOPHEN [Percocet 5-325 mg Tablet] 1 - 2 each PO Q4H PRN Apixaban [Eliquis] 5 mg PO BID #60 tablet 10/01/16 Diltiazem HCl [Diltiazem ER] 360 mg PO DAILY #30 capsule.er 10/01/16
[2016-10-01 14:01] VITALS: BP 114/76
[2016-10-02] MEDS ORDERED: DILTIAZEM HCL 180 MG CAP.SR.24H PO SCH (09:00)
== END 2016-10-01 13:48 | disposition home or self-care (01) ==
LOC: UNDOADMIN 15:24 → SCU 15:24 → INTOOBSV 15:33 → SCU 15:33
PROVIDERS: ADMIT Internal Medicine; ATTEND Internal Medicine
DX: I48.92 Unspecified atrial flutter (principal); I10 Essential (primary) hypertension; E11.9 Type 2 diabetes mellitus without complications; Z89.432 Acquired absence of left foot; F17.200 Nicotine dependence, unspecified, uncomplicated
CPT/HCPCS: 36415; 80053; 84443; 85025; 87081; 93005; 96365; 96366; 96375; 96376; G0378; G0379